=== PATIENT | female | born 1955 | race Caucasian/White ===

== ENCOUNTER 2023-10-10 14:33 | Inpatient (IN) | payer MEDICARE, SELFPAY ==
[2023-10-10] VITALS (23 sets, daily range): BP systolic 90–132; BP diastolic 59–101
[2023-10-10 11:57] LABS: Glucose - Point of Care 109 mg/dl (70-99)
--- NOTE | 2023-10-10 12:02 | CON.NEURO4 ---
Addendum entered and electronically signed by Kenneth Strickland MD 10/10/23 14:21:
I saw and evaluated the patient I reviewed the note by Lida Unger agree with the findings with the following comments:
68-year-old woman with a past medical history of leukemia, Vitas and subsequent complications with multiple small bowel obstructions, hypertension, rheumatoid arthritis presented to hospital with some dyspnea when laying flat over the past week and
then sudden onset expressive speech difficulty and balance issues starting around 9 AM this morning. EMS reported that she had significant improvement upon arrival in ED compared to when they evaluated her initially in the field when she had
significant expressive aphasia. Patient was given 481 mg aspirin tablets, she was noted to be in rapid onset new atrial fibrillation with heart rate 140 -150 with no hypotension. Patient denies headache does feel dizzy and nauseated, has no
previous history of stroke or TIA does not take any blood thinning medications at baseline, she gets IVIG approximately every 4 weeks for the history of her last dose was 2 weeks ago.
Neurologic examination shows NIH stroke scale of 0, patient has some slow speech but no evidence of aphasia or neglect patient has full and appropriate conversation repeats phrases and names objects consistently, cranial nerves show equal pupils,
full extraocular movements, no visual field deficits and no visual neglect, smile symmetric no dysarthria, no pronator drift or fix power 5/5 in shoulder abduction arm flexion hip flexion bilaterally no sensory neglect no ataxia on finger-nose
testing bilaterally.
CT head noncontrast noted I do not appreciate any signs of hypodensity or early ischemia, I do note that the sulci are more effaced on the right hemisphere but without hypodensity in the white matter or kennedy matter. No hemorrhage no hyperdense MCA
sign no hydrocephalus and no neoplasm or edema.
Assessment: TIA presumed due to new atrial fibrillation, patient does seem to be having some symptoms from atrial fibrillation with nausea as well as some dyspnea when laying down over the past couple of days
With patient appearing much improved with NIH stroke scale of 0 no appreciable deficits I do not feel that the patient would need to be delayed for starting anticoagulation, I have greater concern over her risk for another TIA or cardioembolic
stroke given atrial fibrillation.
Most clear etiology for TIA or minor stroke would be the atrial fibrillation, IVIG can also produce some degree of hypercoagulable state, in addition to see with a history of B-cell leukemia.
Recommendations
-Okay for starting anticoagulation with heparin infusion would not bolus
-NIH stroke scales neurologic checks discussed with patient and her daughter and what signs and symptoms of stroke to look for as well as any worsening headache
-Goal normotension would ensure systolic blood pressure is less than 180
-Control heart rate in atrial fibrillation
-Cardiology consultation
-Check TTE
-Check MRI of the brain and MRA of head without contrast and carotid ultrasound
Will follow
Original Note:
Documented by User: Lida Alfaro NP 10/10/23 13:20
Consultation - Neurology 4
-
CONSULTING PHYSICIAN: Neal Strickland MD
REFERRING PHYSICIAN: ER/DR. Barton
DICTATED BY: PREET Villalobos
DATE/TIME OF REQUEST: 10/10/23
DATE/TIME OF CONSULTATION: 10/10/23
Reason for Consultation: Stroke Alert
History of Present Illness:
This is a 68-year-old right-handed female who has presented to the hospital with report of balance issues and word finding difficulty. Patient reports feeling dyspneic especially when lying flat for the past week. This morning, she went for a walk
and did her usual morning routine. Around 0900 she reports suddenly feeling off balance and having difficulty ambulating. She tried to use her phone to call her son and reports having significant difficulty using her phone and when she was able to
call him she could barely get her words out to speak. He called 911. EMS arrived and report that she was in new onset rapid Afib 140-150's. They gave her 4 aspirin 81mg tablets. On their exam she had significant word finding difficulty and was
ataxic, prompting them to activate a Stroke Alert. On arrival to the ER, patient is markedly improved. Responses to questions and commands are slightly slow but NIHSS is a 0. CT Head was obtained and is suggestive of mild effacement off the right
MCA. Patient's exam does not correlate with this finding. She is not a candidate for TNK/IAT due to NIHSS 0. ER VS: 98.7 F, HR 164, BP 132/101, RR 18, 98% RA. ER Labs: Na 134. Patient endorses feeling light-headed and nauseous. She denies any
headache, vision changes, swallowing difficulty, numbness, weakness, vomiting, chest pain, palpitations, and shortness of breath. She denies any history of TIA, stroke, or events like this in the past. She is not taking any blood thinning
medications. She is receiving monthly IVIG injections for B Cell leukemia that was diagnosed 6-7 years ago.
Past Medical History: HTN, HLD, B Cell Leukemia, rheumatoid arthritis (methotrexate), diverticulitis, bowel obstruction, bowel adhesions
Surgical History: Bowel resection x6
Family History: Reviewed and noncontributory.
Social History: Denies tobacco, alcohol, and illicit drug use. , has three children.
Allergies: Iodinated contrast, hydromorphone.
Home Medications: See below.
Review of Symptoms:
Patient denies any fever, headache, chest pain, shortness of breath, GI or symptoms.
�Per the HPI.�All systems are reviewed negative except above.
Physical Exam:
The patient is afebrile, abdomen is nondistended, breathing is unlabored, skin is warm and dry, trace BLE edema.
NIH Stroke Scale:
I performed the NIH stroke scale on the patient on 10/10/23 at 1200. The patient scored 0 points on the NIH stroke scale assessment, which were assigned as follows: See below.
Neurologic Examination:
The patient is awake, alert and oriented x 3. She is able to follow commands and answer questions appropriately, slightly slow response times. There is no aphasia or dysarthria. On cranial nerve assessment, pupils are 3 mm bilateral, round and
reactive to light and accommodation. Visual nguyen are full. Extraocular movements are intact. Facial sensations are intact and bilaterally symmetrical, there is no facial asymmetry. Hearing is intact bilaterally to normal conversation volume.
Tongue palate and uvula are midline. Sternocleidomastoid strengths are full bilaterally. Motor strengths are 5/5 bilateral upper and lower extremities on medical research [place] scale. There is no drift or involuntary movement noted. Deep tendon
reflexes are 2+ bilateral upper and lower extremities and Babinski is absent bilaterally. Sensations of pain, touch, temperature and vibration are intact and bilaterally symmetrical. There was no extinction noted on double simultaneous stimulation.
Coordination is intact by finger to nose bilaterally.
Lab Results: See below.
Neuro Imaging:
1. CT Head 10/05/23: There is mild sulcal effacement in the right middle cerebral artery distribution without obscuration of the normal kennedy-white junction.
While this may be normal variant, given the patient's clinical history, this may reflect the earliest changes of edema from right middle cerebral artery infarct.
Differentials for the patient's presentation include:
1. New onset rapid Afib
2. TIA or small stroke possible
3. Neurological exam not supportive of a R MCA syndrome suggested by CT head imaging.
Patient has the following risk factors for their symptoms: New onset rapid Afib, HTN, HLD
IV Tenecteplase/IAT candidacy: Not a candidate due to NIHSS 0.
Recommendations:
-Okay to initiate anticoagulation now due to new onset Afib
-MRI brain noncontrast ordered/pending.
-Carotid ultrasound ordered/pending.
-NIHSS and neurological checks per unit guidelines.
-Provide patient with a stroke education packet.
-LDL goal <70. Lipid panel pending.
-Goal normoglycemia, hbA1c pending.
-PT/OT/ST evaluations
-DVT prophylaxis
-Will follow pending results.
Discussed patient care with: Dr. Strickland, the patient
Vital Signs and Labs
-
Vital Signs and Labs:
Vital Signs
Temp Pulse Resp BP Pulse Ox
98.7 F 104 20 119/73 94
10/10/23 11:57 10/10/23 13:00 10/10/23 13:00 10/10/23 13:00 10/10/23 13:00
Lab Results
10/10/23 12:03
10/10/23 12:03
PT 13.2 Sec (11.4-14.6) 10/10/23 12:03
INR 0.98 10/10/23 12:03
APTT Cancelled 10/10/23 12:42
Sodium 134 mmol/L (135-145) L 10/10/23 12:03
Potassium 4.6 mmol/L (3.5-5.1) 10/10/23 12:03
BUN 27 mg/dl (7-17) H 10/10/23 12:03
Glucose 105 mg/dl (70-99) H 10/10/23 12:03
Calcium 9.3 mg/dl (8.4-10.2) 10/10/23 12:03
LDL Cholesterol, Calc 55 mg/dl 10/10/23 12:03
Medications
-
Active Medications
Generic Name Dose Route Start Last Admin
Trade Name Freq PRN Reason Stop Dose Admin
Heparin Sodium 25,000 units in 250 mls @ 0 mls/hr 10/10/23 12:45 10/10/23 12:55
Heparin 48654 Units/250 Ml IV 250 mls
PER PROTOCOL CARLOS Administration
Protocol
Per Protocol
NIH Stroke Score
Subsequent NIH Scale
Date of Subsequent NIH Scale: 10/10/23
Time of Subsequent NIH Scale: 12:00
NIH Stroke Score
Level of Consciousness: 0 - Alert
LOC Questions: 0-Answers both correctly
LOC Commands: 0-Performs both correctly
Best Horizontal Gaze: 0-Normal
Visual Nguyen: 0=Normal, no visual loss
Facial Palsy: 0=Normal, symmetrical
Motor - Right Arm: 0=No drift 10 seconds
Motor - Left Arm: 0=No drift 10 seconds
Motor - Right Le-No drift 5 seconds
Motor - Left Le-No drift 5 seconds
Limb Ataxia: 0-Absent
Sensation: 0-Normal
Best Language: 0-No aphasia
Dysarthria: 0-Normal
Extinction and Inattention: 0-No abnormality
Total Score:: 0

Documented by User: Kenneth Strickland MD 10/10/23 13:30
NIH Stroke Score
NIH Stroke Score
Total Score:: 0
--- NOTE | 2023-10-10 12:06 | ED.CVA ---
History of Present Illness
General
Chief Complaint: CVA/TIA Symptoms
Source: patient and ambulance crew
Exam Limitations: none
Time Seen by Provider: 10/10/23 11:57
Onset of Stroke Symptoms
Onset of symptoms known: Yes
Date of onset of symptoms: 10/10/23
History of Present Illness
History of Present Illness:
See MDM
Past History
Past History
ED Past Medical History: Cancer, HTN and Hypercholesterolemia
ED Past Surgical History: Cholecystectomy
Social History
Tobacco: Non-smoker
Alcohol: None
Phy Exam
Physical Exam
Physical Exam:
See MDM
NIH Stroke Score
Level of Consciousness: 0 - Alert
LOC questions: 0-Answers both correctly
LOC Commands: 0-Performs both correctly
Best Gaze: 0-Normal
Visual Nguyen: 0=Normal, no visual loss
Facial palsy: 0=Normal, symmetrical
Motor - Right Arm: 0=No drift 10 seconds
Motor - Left Arm: 0=No drift 10 seconds
Motor - Right Le-No drift 5 seconds
Motor - Left Le-No drift 5 seconds
Limb Ataxia: 0-Absent
Sensation: 0-Normal
Best Language: 0-No aphasia
Dysarthria: 0-Normal
Extinction and Inattention: 0-No abnormality
Total Score:: 0
Course
Orders/Labs/Results
Orders:
Orders
10/10/23 11:57
CT Head W/o Cont STROKE ALERT Urgent
Comment:
Reason For Exam: aphasia and weakness
NEUROLOGY CONSULT Urgent
Consulting Provider: Kenneth Strickland
Was physician already notified: Yes
Diltiazem 125 mg/125 ml Nss [Cardizem] 125 mg in 125 ml IV NOW
Initial dose in mg/hr, then titrate:: 5
Titrate to keep:: Heart rate 80-100 bpm
Titrate by mg/hr:: 5 mg/hr
Frequency of titrations (minutes):: 15
Maximum dose in mg/hr:: 15
Diltiazem HCl [Cardizem] 20 mg IV NOW STA
10/10/23 11:58
Electrocardiogram (*1) Stat
Reason for Study: Other
Other Reason for Exam: neuro symptoms
EKG- Treatment ONCE
10/10/23 11:59
Diltiazem 125 mg/125 ml Nss [Cardizem] 125 mg in 125 ml .ROUTE .STK-MED
10/10/23 12:00
Diltiazem HCl [Cardizem] 25 mg .ROUTE .STK-MED ONE
10/10/23 12:03
Cardiovascular Evaluation Urgent
Comment: ADD ON
Complete Blood Count/With Diff Urgent
Comprehensive Metabolic Panel Urgent
Ferritin Urgent
Comment: ADD ON
Folate Urgent
Comment: ADD ON
Glycohemoglobin (HgbA1c) Urgent
Magnesium Urgent
Prothrombin Time Urgent
TSH Reflex To Free T4 Urgent
Comment: ADD ON
Troponin I Urgent
Vitamin B12 Urgent
Comment: ADD ON
10/10/23 12:13
Ondansetron Injectable [Zofran] 4 mg .ROUTE .STK-MED ONE
10/10/23 12:19
Ondansetron Injectable [Zofran] 4 mg IV NOW STA
10/10/23 12:36
Add On- LAB Routine
Tests Added?: folate, ferritin, TSH reflex, B12, lipid panel, hbA1c
10/10/23 12:42
PTT Urgent
Comment: Obtain baseline before beginning heparin infusion if not already collected
Pharmacy Request to Place See Dose Instructions PO NOW STA
Discontinue all Active Warfarin orders?: Yes
Nursing to Place Non Medication Order As Directed
Physician Order: PTT 6 hours after initial start of Heparin infusion
Above order entered?: Yes
10/10/23 12:45
Heparin 70831 Units/250 ml 25,000 units in 250 ml IV PER PROTOCOL
Weight to be used for heparin protocol in kilograms (kg):: 80
Protocol:: Cardiac Tx/Acute Coronary
PTT Goal Range to be used:: PTT 73 to 111 seconds
Order type:: Initial
INITIAL Infusion Dose (UNITS/KG/hr) & then follow protocol:: 15 units/kg/hr
Infusion Dose in UNITS/hr & then follow protocol (UNITS/hr):: 1,200
INFUSION RATE in mL/hr & then follow protocol (mL/hr):: 12
PTT less than or equal to 64 seconds:: Increase rate by 200 units/hr (+ 2 mL/hr)
PTT 64.1 to 72.9 seconds:: Increase rate by 100 units/hr (+ 1 mL/hr)
PTT 73 to 111 seconds:: Target Range. No change in rate.
PTT 111.1 to 130.9 seconds:: Decrease rate by 100 units/hr (- 1 mL/hr)
PTT 131 to 199.9 seconds:: HOLD for 1 hr. Then decrease rate by 200 units/hr (- 2 mL/hr)
PTT greater than or equal to 200 seconds:: HOLD for 2 hrs & Notify Provider. Then decrease by 200 units/hr (-
2 mL/hr)
Lab follow-up:: Each change, PTT q6h until 2 consecutive are therapeutic. Then PTT
daily.
10/10/23 13:[address] See Dose Instructions IV DIRECTED
Abnormal Lab Results
10/10/23 10/10/23
11:55 12:03
Absolute Lymphs (auto) 0.6 L 10^3/uL
(1.2-3.4)
Neutrophils % 83.6 H %
(42.2-75.2)
Lymphocytes % 10.6 L %
(20.5-51.1)
Sodium 134 L mmol/L
(135-145)
BUN 27 H mg/dl
(7-17)
Glucose 105 H mg/dl
(70-99)
AST 38 H U/L
(14-36)
POC Glucose 109 H mg/dl
(70-99)
10/10/23 12:03
10/10/23 12:03
Vital Signs
Initial and Last Documented VS:
Initial Vital Signs
Temp Pulse Resp BP Pulse Ox
98.7 F 164 18 132/101 98
10/10/23 11:57 10/10/23 11:57 10/10/23 11:57 10/10/23 11:57 10/10/23 11:57
Last Documented Vital Signs
Temp Pulse Resp BP Pulse Ox
98.7 F 106 20 127/85 94
10/10/23 11:57 10/10/23 12:30 10/10/23 12:30 10/10/23 12:30 10/10/23 12:30
MDM/Problems Addressed
Differential Diagnosis Includes:
HPI and MDM Narrative:
68-year-old female presenting as a prearrival stroke alert. Patient was met by myself, nursing staff and neurology. EMS gave 4 baby aspirin. Patient states she felt dizzy and off-balance starting at 9 AM. She states she had trouble walking and
developed weakness. On arrival, symptoms appear to have resolved. Although she is slow to respond, her NIH stroke scale is technically 0. Patient found to be in A-fib with AVR.
Patient sent to CT immediately.
Physical exam
General: Well appearing and non-toxic
HEENT: protecting airway. Pupils equal reactive. EOMI
Neck: supple
CV: No evidence of cyanosis. Tachycardic and irregular
Resp: No accessory muscle use
Abd: Non-distended
Extremities: No deformities
Neuro: alert. No muscle weakness, sensation intact
Psych: Normal affect
Skin: Intact
Problems Addressed including Acute and Chronic Conditions affecting care:
1. CVA
Acuity: acute
Prognosis: stable
Details: Symptoms self resolving. She is not a TNK candidate
2. New onset A-fib
Acuity: acute
Prognosis: unstable
Details: Patient placed on Cardizem drip. Patient started on heparin
Updates
Radiology called indicating concern for early stroke changes. This was discussed with neurology. Given the concern for recurrent stroke symptoms, patient started on heparin. Cardiology consulted as well.
Differential Diagnosis (but not limited to):
Testing considered:
Drug therapy (if applicable): OTC meds, please see d/c instruction regarding Rx drugs
Amount and/or Complexity of Data Reviewed
Clinical info obtained from: Patient
External data reviewed: N/A
Labs I independently reviewed (but not limited to): Troponin negative
Radiology: The CT scan was personally and independently reviewed. In addition, official CT report reviewed.
Pulse Ox: not hypoxic
EKG independently reviewed: A-fib, normal axis, no STEMI
Assistant Financial Accountant: A-fib with RVR
Critical Care: The high probability of a clinically significant, sudden or life threatening deterioration of the cardiovascular system(s) required my full and direct attention, intervention and personal management. The aggregate critical care time
was 33 minutes. This time is in addition to time spent performing reported procedures but includes the following:
[x] Data Review and interpretation
[x] Patient assessment and monitoring of vital signs
[x] Documentation
[x] Medication orders and management
Risk of Complication:
Social Determinants of health: Good social support
Discussed with other providers: Neurology, hospitalist, document preparer microfilming
Escalation of Care includes Admit/Obs: Given the stroke symptoms with new onset A-fib, will admit
Occasional wrong word or 'sound a like' substitutions may have occurred due to the inherent limitations of voice recognition software. Read the chart carefully and recognize, using context, where substitutions have occurred.
*Critical Care Note
Total Time (30-74mins, 75-104mins- exclusive of procedures): 33 min
ED Attending Note
-
Portions of this chart may have been created with voice recognition software.� Occasional wrong word or��sound alike� substitutions may have occurred due to the inherent limitations of voice recognition software.
Discharge Plan
Departure
Patient Disposition: Admit
Date of Disposition: 10/10/23
Time of Disposition: 12:55
Admit to: Telemetry
Presentation/result/management discussed w/ accepting MD/DO: Hospitalist
Discharge Problem:
Acute CVA (cerebrovascular accident), New onset a-fib
Referrals:
UNKNOWN,NO INTERVIEW [Family Provider] -
Interventions
Interventions:
*Risk Screen - Suicide Last Done: 10/10/23 11:57
*General Assessment Last Done: 10/10/23 11:57
*Neglect/Abuse Screening Last Done: 10/10/23 11:57
ED- Fall Risk Assessment Last Done: 10/10/23 11:57
*ED COVID-19 Vaccine History Last Done: 10/10/23 11:57
ED- Pulmonary Assessment Last Done: 10/10/23 11:57
ED- Neurological Assessment Last Done: 10/10/23 12:30
ED- Cardiac Assessment Last Done: 10/10/23 11:57
ED Swallowing Screen Last Done: 10/10/23 12:18
[2023-10-10 12:10] LABS: % Basophils 0.5 % (0-2); % Eosinophils 0.7 % (0-6); % Immature Granulocytes 0.4 % (0-0.5); % Lymphocytes 10.6 % (20.5-51.1); % Monocytes 4.2 % (1.7-9.3); % Neutrophils 83.6 % (42.2-75.2); Absolute Lymphocytes 0.6 10^3/uL (1.2-3.4); Absolute Monocytes 0.2 10^3/uL (0.1-0.6); Absolute Neutrophils 4.6 10^3/uL (1.4-6.5); Hematocrit 41.9 % (37.0-47.0); Hemoglobin 14.3 g/dL (12.0-16.0); Mean Corp Hgb Conc. 34.1 g/dL (33.0-37.0); Mean Corpuscular Volume 90.9 fL (81.0-99.0); Mean Platelet Volume 10.3 fL (7.4-10.4); Nucleated Red Blood Cells % 0 %; Platelet Count 182 10^3/uL (130-400); Red Blood Cell Count 4.61 10^6/uL (4.20-5.40); Red Cell Dist. Width 14.1 % (11.5-14.5); White Blood Cell Count 5.5 10^3/uL (4.8-10.8)
[2023-10-10] MEDS: CARDIZEM 125 IV (12:10)
[2023-10-10] MEDS: CARDIZEM 20 MG IV (12:10)
[2023-10-10] MEDS: ZOFRAN 4 MG IV ×2 (12:19→20:51)
[2023-10-10 12:20] LABS: INR 0.98; PT 13.2 Sec (11.4-14.6)
[2023-10-10 12:26] LABS: ALT (SGPT) 22 U/L (0-35); AST (SGOT) 38 U/L (14-36); Albumin 4.4 g/dl (3.5-5.0); Alkaline Phosphatase 87 U/L (38-126); Blood Urea Nitrogen 27 mg/dl (7-17); Calcium 9.3 mg/dl (8.4-10.2); Carbon Dioxide 26 mmol/L (22-30); Chloride 100 mmol/L (98-107); Glucose 105 mg/dl (70-99); Magnesium 1.9 mg/dl (1.6-2.3); Potassium 4.6 mmol/L (3.5-5.1); Sodium 134 mmol/L (135-145); Total Bilirubin 0.8 mg/dl (0.2-1.3); Total Protein 6.9 g/dl (6.3-8.2); eGFR > 60.00
[2023-10-10 12:36] LABS: Troponin I < 0.012 ng/ml
[2023-10-10 12:55] LABS: Glycohemoglobin (HgbA1c) 5.6 % (4.0-5.6)
[2023-10-10] MEDS: HEPARIN 25000 UNITS/250 ML IV (12:55)
[2023-10-10 13:01] LABS: HDL Cholesterol 54 mg/dl; LDL Cholesterol, Calculated 55 mg/dl; Total Cholesterol 146 mg/dl (50-199); Triglyceride 189 mg/dl (10-149); Very Low Density Lipoprotein 37 mg/dl (0-30)
[2023-10-10 13:08] LABS: APTT 26.8 Sec (23.4-35.0)
--- NOTE | 2023-10-10 13:40 | HPS.HSE ---
Addendum entered and electronically signed by Whitney Babcock MD 10/10/23 15:12:
pt seen and examined independently--agree with TUB ATTENDANT note
GENERAL: well developed, well nourished, female in no apparent distress
HEENT: NC/AT no O2
HEART: irreg irreg
LUNGS : clear to auscultation bilaterally
ABDOM: soft, nontender, nondistended, + bowel sounds
EXT: no cyanosis, clubbing, or edema
NEUROLOGIC: no deficits--symptoms resolved
new onset afib likely cause of acute stroke-- cont cardizem drip, IV heparin--await cards--check echo--TSH pending
Acute Right MCA infarct per CT with prior symptoms Slurred speech, right eye visual deficit--symptoms resolved--await neuro--PT/OT/speech--neuro checks--lipid profile (T Chol 146, LDL 55, VLDL 37, HDL 54, triglycerides 189)
Chronic abdominal pain secondary to adhesions on chronic opiates---Morphine 300 mg every 12 hours, 30 mg every 8 hours as needed breakthrough pain as baseline meds
Opiate induced constipation--Continue Movantik
Leukemia B-cell--Port to transfer IVIG infusions at [facility]
Rheumatoid arthritis--Methotrexate 20 mg on Saturdays
Essential HTN--Continue amlodipine 5 mg daily with hold parameters--Metoprolol succinate 25 mg twice daily will hold while on Cardizem
HLD--Lipid profile-T Chol 146, LDL 55, VLDL 37, HDL 54, triglycerides 189--Continue atorvastatin 20 mg daily
GERD--Continue Pepcid 40 mg every afternoon, omeprazole
Trigeminal neuralgia hx
DVT prophylaxis--Patient on current IV heparin drip
code status --Full code
Addendum entered and electronically signed by PREET Spears 10/10/23 14:46:
change to IMU
Original Note:
Family Physician
-
Family Physician: Maliha Hall
Chief Complaint
-
Aphasia, right eye visual impairment, headache, shortness of breath x 1 week at night
History of Present Illness
68-year-old female who was at home today went for a mile walk upon returning home she was in her kitchen when she had sudden onset of bright light to her right eye along with difficulty talking and trying to walk. She was able to call her son but
not able to speak he called 911. The patient also reports for the past week when she lies down to go to bed she has had shortness of breath. She currently complains of a frontal headache with some nausea. She has chronic left upper eyelid droop
since she was young. She denies any history of Rodriguez's palsy. She has a subtle right nystagmus she does wear glasses for farsightedness and nearsightedness. She denies recent illness, fever, chills, chest pain, palpitations, cough, abdominal pain,
vomiting, diarrhea, urinary symptoms. She reports she has never had COVID
PMH leukemia B-cell, RA on methotrexate, trigeminal neuralgia, chronic abdominal pain second to adhesions on chronic opiates, HTN, HLD, GERD
Medical History
Past Medical History
Past Medical History: Reports Other
Additional Past Medical History:
leukemia B-cell on IVIG
RA on methotrexate
trigeminal neuralgia
Chronic abdominal pain with chronic adhesions on chronic opiates
Opiate induced constipation
HTN
HLD
GERD
Past Surgical History: Reports Other
Additional Past Surgical History:
Abdominal surgery x 6
Back surgery x 2
Left knee surgery
Cholecystectomy
Hysterectomy
Social History
Tobacco: Non-smoker
Alcohol: None
Drug: None
Personal: Single
Living: Alone
Employment: Retired
Family History
Family History: Other (Mother, father OR age 60s, brother OR age 40s, mother age 94, father age 80 COPD, brother living)
Allergies / Home Medications
Allergies reflects when Allergies were last updated in [facility].
Home Medications with original date entered in [facility]
Allergy/Medication List:
Allergies
Allergy/AdvReac Type Severity Reaction Status Date / Time
hydromorphone [From Dilaudid] Allergy Unknown Verified 10/10/23 11:55
Iodinated Contrast Media Allergy Unknown Verified 10/10/23 11:55
Home Medications
amlodipine 5 mg tablet 5 mg PO DAILY 10/10/23
ascorbic acid (vitamin C) 1,000 mg tablet (Vitamin C) 1,000 mg PO HS 10/10/23
atorvastatin 20 mg tablet 20 mg PO DAILY 10/10/23
cyanocobalamin (vitamin B-12) 1 tab PO HS 10/10/23
docusate sodium 100 mg capsule (Stool Softener) 100 mg PO DAILY 10/10/23
famotidine 40 mg tablet 40 mg PO QPM 10/10/23
folic acid 1 mg tablet 1 mg PO SUMOTUWETHFR@0800 10/10/23
icosapent ethyl 1 gram capsule (Vascepa) 2 g PO BID 10/10/23
methotrexate sodium 2.5 mg tablet 20 mg PO SA@0800 10/10/23
metoprolol succinate 25 mg tablet,extended release 24 hr 25 mg PO BID 10/10/23
morphine 100 mg tablet,extended release 100 mg PO Q12H 10/10/23
morphine 200 mg tablet,extended release 200 mg PO Q12H 10/10/23
morphine 30 mg immediate release tablet 30 mg PO Q8H PRN breakthrough pain 10/10/23
naloxegol 25 mg tablet (Movantik) 25 mg PO DAILY 10/10/23
omeprazole 40 mg capsule,delayed release 40 mg PO DAILY 10/10/23
prochlorperazine 25 mg rectal suppository (Compro) 25 mg VA BID PRN nausea 10/10/23
vitamin A 1 tab PO HS 10/10/23
vitamin E 1 tab PO HS 10/10/23
Review of Systems
-
History Source: Patient
A 12 point ROS was completed and negative except as noted: Yes
Constitutional: Denies Fever, Fatigue or Chills
EENT: Reports Other (Chronic left upper eyelid droop present on admission, reported brief episode bright light right eye with aphasia); Denies Sore Throat or Runny Nose
Respiratory: Denies Cough or Trouble Breathing
Cardiac: Denies Chest Pain
Abdomen/GI: Reports Nausea; Denies Abdominal Pain, Vomiting, Diarrhea, Constipated, Bloody Stools or Black Stools
: Denies Dysuria, Frequency, Flank Pain, Incontinence, Difficulty Voiding or Urgency
Musculoskeletal: Denies Joint Pain or Edema
Skin: Denies Itching or Rash
Neurological: Reports Headache (Frontal sinus); Denies Dizzy, Weakness or Numbness
Endocrine: Reports No Symptoms
Hematologic/Lymphatic: Reports No Symptoms
Psych: Reports Calm
Physical Exam
Vital Signs
Vital Signs
Temp Pulse Resp BP Pulse Ox
98.7 F 117 15 121/76 94
10/10/23 11:57 10/10/23 13:30 10/10/23 13:30 10/10/23 13:30 10/10/23 13:00
Physical Exam
General: Comfortable and Conversant; No Fever or Chills
HEENT: NormoCephalic, Anicteric, Moist mucous membranes, PERRLA, [place] Conjunctivae, Neck Nontender and Other (Chronic left upper eyelid droop since child, subtle right eye nystagmus pupils 2 mm bilaterally); No Pharyngeal Efythema
Respiratory: Clear; No Wheezes, Rales or Rhonchi
Cardiac: S1/S2 and Irregular Rhythm (A-fib HR 112 bpm on monitor); No Murmur, Rub, Gallop or Peripheral Edema
Breast: Deferred by me
GI: Soft, Non Tender, Non Distended, Normal Bowel Sounds and No Hepatosplenomegaly
Rectal: Deferred by Provider
Genito-urinary: Deferred by me
Musculoskeletal: No Clubbing, No Cyanosis and No Edema
Skin: Warm and Dry; No Rash or Jaundice
Neuro: AO x 3, No Motor Deficits, Nonfocal/grossly intact, Cranial Nerves Intact and No Sensory Deficits; No Slurred Speech, Facial Droop or Tremors
Psych: Calm
Laboratory Results
-
10/10/23 12:03
10/10/23 12:03
Laboratory Results
PT 13.2 Sec (11.4-14.6) 10/10/23 12:03
INR 0.98 10/10/23 12:03
APTT Cancelled 10/10/23 12:42
Total Bilirubin 0.8 mg/dl (0.2-1.3) 10/10/23 12:03
AST 38 U/L (14-36) H 10/10/23 12:03
ALT 22 U/L (0-35) 10/10/23 12:03
Alkaline Phosphatase 87 U/L (38-126) 10/10/23 12:03
Troponin I < 0.012 ng/ml 10/10/23 12:03
Impression/Plan
-
Impression/plan:
Admit to IVU
#A-fib with RVR-new onset
-IV Cardizem drip
-IV heparin drip
-Consult cardiology
-2D echo
-TSH, troponin NML
EKG A-fib with RVR 112 bpm, QTc 444 MS otherwise normal
#Right MCA infarct per CT with prior symptoms Slurred speech, right eye visual deficit
-Consult neurology
-Speech swallow eval
-MRI brain
-Carotid ultrasound
-Neurochecks every 4 hours
-Check HgbA1c
-Tylenol as needed
-PT/OT
Lipid profile-T Chol 146, LDL 55, VLDL 37, HDL 54, triglycerides 189
CT head: Mild sulcal effacement in the right MCA without obscuration of the normal kennedy-white junction may reflect early changes of edema from right middle cerebral infarct
#Chronic abdominal pain secondary to adhesions on chronic opiates
-Morphine 300 mg every 12 hours, 30 mg every 8 hours as needed breakthrough pain
#Opiate induced constipation
-Continue Movantik
#Leukemia B-cell
Port to transfer IVIG infusions
#Rheumatoid arthritis
Methotrexate 20 mg on Saturdays
#HTN�benign
-Continue amlodipine 5 mg daily with hold parameters
Metoprolol succinate 25 mg twice daily will hold while on Cardizem
#HLD
Lipid profile-T Chol 146, LDL 55, VLDL 37, HDL 54, triglycerides 189
-Continue atorvastatin 20 mg daily
#GERD
Continue Pepcid 40 mg every afternoon, omeprazole
#Trigeminal neuralgia hx
DVT prophylaxis
Patient on current IV heparin drip
Full code
--- NOTE | 2023-10-10 14:33 | CON.CAR ---
Addendum entered and electronically signed by Alpesh Bermudez MD 10/10/23 17:01:
68 yo female with PMH HTN, B cell leukemia, rheumatoid arthritis presents to ED with visual changes. Being evaluation for TIA vs CVA. MRI results pending. Also found to have new A fib with RVR. She reports SOB, but no palps.
Exam with irregular rhythm, no murmurs, no edema. EKG: A fib with RVR.
# New A fib, type and duration unknown
-cont diltiazem drip
-she was on Toprol XL 25mg bid at home for HTN: increase to 50mg bid, and wean diltiazem drip
-CHADS2-VASC = 5. Now on heparin drip. Eventual transition to eliquis 5mg bid.
-echo
Original Note:
Consultation
Consultation Request
Date/Time Consultation Requested: 10/10/23 14:15
Date/Time Consultation Performed: 10/10/23 14:30
Requesting Provider: Dr. Barton
Performing Provider: PREET Rowley for Dr. Bermudez
Reason for Consultation: CVA
Medical History
-
Chief Complaint: Right visual changes
History of Present Illness:
Mariely Murguia is a 68-year-old female (known to Dr. Leroy Fernandez at [facility]) with B cell leukemia (on IVIG Q4 weeks), RA (on MTX), trigeminal neuralgia, chronic abdominal pain requiring opiates, HTN, HLD, and GERD presented to the emergency
department with a chief complaint of visual impairment. She went on a 1 mile walk and felt well. She returned home to make breakfast. While standing in the kitchen she had sudden onset of right visual impairment, dizziness, and aphasia. She
called her son and was unable to speak. He called 911 and presented to her apartment. She was found to have TIA versus CVA. Her NIH is currently 0. She was found to be in atrial fibrillation with right ventricular response. She reports she also
has shortness of breath every night. She has been sleeping in the upright position for several years due to severe GERD. She denies PND and orthopnea. She has no weight gain.
Past Medical History
Past Medical History: Cancer (B cell leukemia) and Other (trigeminal neuralgia, chronic abdominal pain [on opiates], RA [on MTX])
Past Surgical History: Bowel Resection, Cholecystectomy, Gynecological and Orthopedic
Social History
Tobacco: Non-Smoker
Alcohol: None
Drug: None
Living: Alone
Family History
Family History: Reviewed & Not Pertinent
Allergies / Home Medications
Allergy/AdvReac Type Severity Reaction Status Date / Time
hydromorphone [From Dilaudid] Allergy Unknown Verified 10/10/23 11:55
Iodinated Contrast Media Allergy Unknown Verified 10/10/23 11:55
Medication Instructions Recorded Confirmed Type
amlodipine 5 mg tablet 5 mg PO DAILY 10/10/23 10/10/23 History
ascorbic acid (vitamin C) 1,000 mg 1,000 mg PO HS 10/10/23 10/10/23 History
tablet (Vitamin C)
atorvastatin 20 mg tablet 20 mg PO DAILY 10/10/23 10/10/23 History
cyanocobalamin (vitamin B-12) 1 tab PO HS 10/10/23 10/10/23 History
docusate sodium 100 mg capsule 100 mg PO DAILY 10/10/23 10/10/23 History
(Stool Softener)
famotidine 40 mg tablet 40 mg PO QPM 10/10/23 10/10/23 History
folic acid 1 mg tablet 1 mg PO SUMOTUWETHFR@0800 10/10/23 10/10/23 History
icosapent ethyl 1 gram capsule 2 g PO BID 10/10/23 10/10/23 History
(Vascepa)
methotrexate sodium 2.5 mg tablet 20 mg PO SA@0800 10/10/23 10/10/23 History
metoprolol succinate 25 mg 25 mg PO BID 10/10/23 10/10/23 History
tablet,extended release 24 hr
morphine 100 mg tablet,extended 100 mg PO Q12H 10/10/23 10/10/23 History
release
morphine 200 mg tablet,extended 200 mg PO Q12H 10/10/23 10/10/23 History
release
morphine 30 mg immediate release 30 mg PO Q8H PRN breakthrough pain 10/10/23 10/10/23 History
tablet
naloxegol 25 mg tablet (Movantik) 25 mg PO DAILY 10/10/23 10/10/23 History
omeprazole 40 mg capsule,delayed 40 mg PO DAILY 10/10/23 10/10/23 History
release
prochlorperazine 25 mg rectal 25 mg [place] BID PRN nausea 10/10/23 10/10/23 History
suppository (Compro)
vitamin A 1 tab PO HS 10/10/23 10/10/23 History
vitamin E 1 tab PO HS 10/10/23 10/10/23 History
Review of Systems
-
History Source: Patient
All other systems: Negative unless noted
Constitutional: Fatigue
Respiratory: No Symptoms
Cardiac: No Symptoms
Abdomen/GI: No Symptoms
Physical Exam
Vital Signs
Temp Pulse Resp BP Pulse Ox
98.7 F 104 17 98/73 94
10/10/23 11:57 10/10/23 14:15 10/10/23 14:15 10/10/23 14:15 10/10/23 13:00
Lab Results
10/10/23 12:03
10/10/23 12:03
Troponin I < 0.012 ng/ml 10/10/23 12:03
Physical Exam
General: Well Developed, Well Nourished, No Apparent Distress and Comfortable
HEENT: Normocephalic, Anicteric and Moist Mucous Membranes
Respiratory: Clear and Non Labored Respirations
Cardiac: S1/S2 and Irregular Rhythm; Negative Peripheral Edema
Breast: Deferred by me
GI: Soft, Non Tender, Non Distended and Normal Bowel Sounds
Rectal: Deferred by Provider
Genito-urinary: No Costovertebral Tender
Musculoskeletal: No Clubbing, No Cyanosis and No Edema
Skin: Warm and Dry
Neuro: AO x 3
Hematologic/Lymphatic: No Lymphadenopathy
Psych: Calm
Impression / Plan
-
CVA, right MCA
-New atrial fibrillation this admission, plan as below
-Neurology following
-LDL at goal
-Carotid US & Hgba1c pending
Atrial fibrillation with RVR, new
-Rate elevated, started on diltiazem gtt
-Increase metoprolol and anticipate discontinuation of diltiazem
-Oral Anticoagulation: Heparin, esparza Apixaban 5mg BID
-[id number]: Score 5 (HTN, prior Stroke/TIA, age 65-74, female gender)
-TSH pending
-Echocardiogram in am
HTN
-BP goals per Neuro
Hypertriglyceridemia, on Vascepa
B cell lymphoma, on IVIG Q4 weeks (managed at [facility])
RA, on MTX
Data Reviewed
-
EKG: Report Reviewed by me (Atrial fibrillation with RVR, rate 112)
CT Scan: Report Reviewed by me (Head: There is mild sulcal effacement in the right middle cerebral artery distribution without obscuration of the normal kennedy-white junction. While this may be normal variant, given the patient's clinical history,
this may reflect the earliest changes of edema from right MCA infarct.)
Labs: Labs Reviewed by me
[2023-10-10 16:35] LABS: Folate > 20.0 ng/ml (2.76-20); Vitamin B12 939 pg/ml (239-931)
[2023-10-10] MEDS: TYLENOL 650 MG PO ×2 (17:37→20:52)
[2023-10-10] MEDS: PEPCID 40 MG PO (17:37)
--- NOTE | 2023-10-10 20:30 | PTCARENOTE ---
Received pt from [facility]. Pt is AAOx3, NIH Qshift, neuro checks Q4, R LE weakness. Afib on the monitor, Cardizem gtt infusing @ 12.5 mg/hr (titrate per protocol, see worklist). Pt c/o lightheadedness while standing. On RA O2 sat 96%, lungs
clear. BRPx1. Pt c/o nausea, SENIOR SECURITY ANALYST Sonia notified 1 time dose of Zofran ordered (see MAR). Heparin infusing @ 1200 units/hr. Pt is laying comfortable in bed with call robert in reach.
[2023-10-10] MEDS: MS CONTIN (EXTENDED RELEASE) 300 MG PO (20:51)
[2023-10-10] MEDS: TOPROL XL 50 MG PO (20:52)
[2023-10-11] VITALS (28 sets, daily range): BP systolic 71–105; BP diastolic 47–82; PULSE 79–104; O2SAT 95–97; BMI 27.3
[2023-10-11 00:08] LABS: APTT 184.8 Sec (23.4-35.0)
[2023-10-11] MEDS: TYLENOL PO (01:14)
[2023-10-11] MEDS: CARDIZEM 125 IV (03:13)
[2023-10-11] MEDS: TYLENOL 650 MG PO ×6 (03:13→23:14)
[2023-10-11 06:45] LABS: % Basophils 0.7 % (0-2); % Eosinophils 6.9 % (0-6); % Immature Granulocytes 0.2 % (0-0.5); % Monocytes 5.3 % (1.7-9.3); % Neutrophils 64.9 % (42.2-75.2); Absolute Eosinophils 0.3 10^3/uL (0-0.7); Absolute Monocytes 0.2 10^3/uL (0.1-0.6); Absolute Neutrophils 2.9 10^3/uL (1.4-6.5); Hematocrit 34.5 % (37.0-47.0); Hemoglobin 11.8 g/dL (12.0-16.0); Mean Corp Hgb Conc. 34.2 g/dL (33.0-37.0); Mean Corpuscular Hgb 30.7 pg (27.0-31.0); Mean Corpuscular Volume 89.8 fL (81.0-99.0); Mean Platelet Volume 10.2 fL (7.4-10.4); Nucleated Red Blood Cells % 0 %; Platelet Count 169 10^3/uL (130-400); Red Blood Cell Count 3.84 10^6/uL (4.20-5.40); Red Cell Dist. Width 14.1 % (11.5-14.5); White Blood Cell Count 4.5 10^3/uL (4.8-10.8)
[2023-10-11 06:53] LABS: APTT 98.3 Sec (23.4-35.0)
[2023-10-11 07:12] LABS: ALT (SGPT) 19 U/L (0-35); AST (SGOT) 30 U/L (14-36); Albumin 3.2 g/dl (3.5-5.0); Alkaline Phosphatase 65 U/L (38-126); Blood Urea Nitrogen 20 mg/dl (7-17); Calcium 8.5 mg/dl (8.4-10.2); Carbon Dioxide 24 mmol/L (22-30); Chloride 101 mmol/L (98-107); Estimated Creatinine Clearance 71 ml/min; Glucose 102 mg/dl (70-99); Potassium 3.9 mmol/L (3.5-5.1); Sodium 135 mmol/L (135-145); Total Bilirubin 0.8 mg/dl (0.2-1.3); Total Protein 5.5 g/dl (6.3-8.2); eGFR > 60.00
--- NOTE | 2023-10-11 07:53 | W.PN.CD ---
Today's Communication / Plan
-
- transition diltiazem to po.
- Stop amlodipine.
- transition UFH to apixaban when OK with neurology
- Echocardiogram today
- NPO post MN for possible EFREN/CV
Impression / Plan
-
68 yo female with PMH HTN, B cell leukemia, rheumatoid arthritis presents to ED with visual changes. Being evaluation for TIA vs CVA. Also found to have new A fib with RVR.�
CVA, right MCA
-New atrial fibrillation this admission, plan as below
-Neurology following
-LDL at goal
-Carotid US & Hgba1c pending
Atrial fibrillation with RVR, new
-transition diltiazem to po. Stop amlodipine. Continue metoprolol
-Oral Anticoagulation: Heparin, esparza Apixaban 5mg BID. Start apixaban when OK with neurology
-[id number]: Score 5 (HTN, prior Stroke/TIA, age 65-74, female gender)
-TSH pending
-Echocardiogram pending
-NPO post MN for possible EFREN/CV
HTN - BP goals per Neuro
Hypertriglyceridemia, on Vascepa
B cell lymphoma, on IVIG Q4 weeks (managed at [facility])
RA, on MTX
Physical Exam
Vital Signs/Labs
Vital Signs
Temp Pulse Resp BP Pulse Ox
36.6 C 74 19 96/57 98
10/11/23 07:22 10/11/23 06:00 10/11/23 06:00 10/11/23 06:00 10/11/23 06:00
10/10/23 10/11/23 10/12/23
06:59 06:59 06:59
Actual Weight 169 lb 1.513 oz
10/11/23 06:19
10/11/23 06:19
PT 13.2 Sec (11.4-14.6) 10/10/23 12:03
INR 0.98 10/10/23 12:03
APTT 98.3 Sec (23.4-35.0) H 10/11/23 06:19
Magnesium 1.9 mg/dl (1.6-2.3) 10/10/23 12:03
Triglycerides 189 mg/dl (10-149) H 10/10/23 12:03
LDL Cholesterol, Calc 55 mg/dl 10/10/23 12:03
VLDL Cholesterol, Calc 37 mg/dl (0-30) H 10/10/23 12:03
HDL Cholesterol 54 mg/dl 10/10/23 12:03
LAB Results
10/10/23
12:03
Troponin I < 0.012
Physical Exam
Constitutional: No acute distress
EENT: Anicteric and Moist mucous membranes
Cardiovascular: Pedal edema is absent, Systolic murmur absent, Diastolic murmur absent and Rhythm/rate is irregular
Respiratory: Respiratory effort normal
GI: Distention absent and Normal bowel sounds
Neuro/Psych: Alert and Oriented
Data Reviewed
-
Date of Service: October 11, 2023
X-Ray/CT/US/MRI/NUC/PET: Other (tele AF/CVR)
[2023-10-11] MEDS: COLACE 100 MG PO (08:34)
[2023-10-11] MEDS: MS CONTIN (EXTENDED RELEASE) 300 MG PO ×2 (08:34→20:24)
[2023-10-11] MEDS: PROTONIX 40 MG PO (08:34)
[2023-10-11] MEDS: FOLVITE 1 MG PO (08:34)
[2023-10-11] MEDS: LIPITOR 20 MG PO (08:35)
[2023-10-11] MEDS: CARDIZEM CD 120 MG PO (08:37)
[2023-10-11] MEDS: TOPROL XL 50 MG PO ×2 (08:37→20:24)
--- NOTE | 2023-10-11 08:43 | W.PN.NEURO.1 ---
Today's Communication / Plan
-
Okay for starting anticoagulation
Goal normotension
Continue to follow orthostatics
Neuro Assessment/Plan
Assessment
68-year-old woman with a past medical history of leukemia, Vitas and subsequent complications with multiple small bowel obstructions, hypertension, rheumatoid arthritis presented to hospital with some dyspnea when laying flat over the past week and
then sudden onset expressive speech difficulty and balance issues starting around 9 AM this morning. EMS reported that she had significant improvement upon arrival in ED compared to when they evaluated her initially in the field when she had
significant expressive aphasia. Patient was given 481 mg aspirin tablets, she was noted to be in rapid onset new atrial fibrillation with heart rate 140 -150 with no hypotension. Patient denies headache does feel dizzy and nauseated, has no
previous history of stroke or TIA does not take any blood thinning medications at baseline, she gets IVIG approximately every 4 weeks for the history of her last dose was [address] head noncontrast noted no any signs of hypodensity or early ischemia
MRI of brain unremarkable
Assessment: TIA presumed due to new atrial fibrillation, patient does seem to be having some symptoms from atrial fibrillation with nausea as well as some dyspnea when laying down over the past couple of days
Plan
Recommendations
Okay for starting anticoagulation
Goal normotension
Continue to follow orthostatics
Will follow as needed.
Subjective/Objective
Subjective Data
Date of Service: October 11, 2023
Improved speech ability.
Objective Data
Vital Signs
Temp Pulse Resp BP Pulse Ox
36.6 C 74 19 96/57 98
10/11/23 07:22 10/11/23 06:00 10/11/23 06:00 10/11/23 06:00 10/11/23 06:00
Lab Results
10/11/23 06:19
10/11/23 06:19
PT 13.2 Sec (11.4-14.6) 10/10/23 12:03
INR 0.98 10/10/23 12:03
APTT 98.3 Sec (23.4-35.0) H 10/11/23 06:19
Sodium 135 mmol/L (135-145) 10/11/23 06:19
Potassium 3.9 mmol/L (3.5-5.1) 10/11/23 06:19
BUN 20 mg/dl (7-17) H 10/11/23 06:19
Glucose 102 mg/dl (70-99) H 10/11/23 06:19
Calcium 8.5 mg/dl (8.4-10.2) 10/11/23 06:19
LDL Cholesterol, Calc 55 mg/dl 10/10/23 12:03
Vitamin B12 939 pg/ml (239-931) H 10/10/23 12:03
Patient Allergies
hydromorphone [From Dilaudid] Allergy (Verified 10/10/23 11:55)
Unknown
Iodinated Contrast Media Allergy (Verified 10/10/23 11:55)
Unknown
Review of Systems
-
History Source: Patient
All other systems: Reviewed and negative
EENT: Negative Hearing Loss or Swallowing Difficulty
Respiratory: Trouble Breathing
Cardiac: Negative Chest Pain
Abdomen/GI: Negative Incontinence of Stool
Genitourinary: Negative Incontinence
Musculoskeletal: Negative Back Pain or Neck Pain
Neuro: Dizzy and Headache
Physical Exam
-
General: No Apparent Distress and Appears Stated Age
Eyes: Round OU, [place] Conjunctivae and No Ptosis
HEENT: Anicteric and Moist Mucous Membranes
Neck: Full Range of Motion
Respiratory: No Dyspnea
Cardiac: No JVD
GI: Non-distended
Skin: Unremarkable
Extremities: No Clubbing, No Cyanosis and No Edema
Psych: Intact Judgement/Insight
Extended Neurological Exam
Mood & Affect: Mood Unremarkable and Affect Unremarkable
Attention Span & Concentration: Awake, Alert, Interactive and No Difficulty with 2 Step Request
Memory: Unremarkable
Tremor: Hand Tremor Absent and Head Tremor Absent
Involuntary Movement: None
Speech: Quality Unremarkable, Quantity Unremarkable and Other (repetition intact)
Cranial Nerve II: Left Eye: Pupillary Size Unremarkable and Visual Nguyen Grossly Intact
Cranial Nerve II: Right Eye: Pupillary Size Unremarkable and Visual Nguyen Grossly Intact
Cranial Nerves III, IV, : Extraocular Movement: Grossly Intact
Cranial Nerve VII: Facial Symmetry: Normal Facial Symmetry
Cranial Nerve VIII: Hearing: Unremarkable Hearing to Normal Conversational Volume
Muscle Bulk & Tone: Bulk Unremarkable and Tone Unremarkable
Pronator Drift: No Drift in Upper Extremities
Touch Sensation: Unremarkable
Coordination: Nvqudr-lhni-osmebt Testing Unremarkable
Modified Shiv Score (MRS)
-
MRS Score:
Data Reviewed
-
MRI Head: Report Reviewed
MRA Head: Report Reviewed
Carotid Ultrasound: Report Reviewed
Orthostatic Testing: Report Reviewed
Labs: Report Reviewed
Reviewed with: Physician, Nurse, Nurse Practioner and Patient
Old Records: Summarized
Past History
Past History
ED Past Medical History: Arrthythmia (Afib), Cancer, HTN, Hypercholesterolemia and Other (Migraine)
ED Past Surgical History: Cholecystectomy
Social History
Tobacco: Non-smoker
Alcohol: None
Family History
Family History: Other (reviewed and noncontributory)
Medications
-
Medications:
Generic Name Dose Route Start Last Admin
Trade Name Freq PRN Reason Stop Dose Admin
Acetaminophen 650 mg 10/10/23 17:28 10/11/23 08:34
Acetaminophen 325 Mg Tablet PO 11/07/23 17:27 650 mg
Q4HWA CARLOS Administration
Atorvastatin Calcium 20 mg 10/11/23 08:00 10/11/23 08:35
Atorvastatin (Lipitor) 20 Mg Tablet PO 11/08/23 07:59 20 mg
DAILY CARLOS Administration
Diltiazem HCl 120 mg 10/11/23 08:00 10/11/23 08:37
Diltiazem 120 Mg Extended Release (24 H) Capsule PO 11/08/23 07:59 120 mg
DAILY CARLOS Administration
Docusate Sodium 100 mg 10/11/23 08:00 10/11/23 08:34
Docusate Sodium 100 Mg Capsule PO 11/08/23 07:59 100 mg
DAILY CARLOS Administration
Famotidine 40 mg 10/10/23 18:00 10/10/23 17:37
Famotidine 40 Mg Tablet PO 11/07/23 17:59 40 mg
QPM CARLOS Administration
Folic Acid 1 mg 10/11/23 08:00 10/11/23 08:34
Folic Acid 1 Mg Tablet PO 11/08/23 07:59 1 mg
SUMOTUWETHFR@0800 CARLOS Administration
Heparin Sodium 25,000 units in 250 mls @ 0 mls/hr 10/10/23 12:45 10/10/23 12:55
Heparin 43765 Units/250 Ml IV 250 mls
PER PROTOCOL CARLOS Administration
Protocol
Per Protocol
Metoprolol Succinate 50 mg 10/10/23 20:00 10/11/23 08:37
Metoprolol 50 Mg Extended Release Tablet PO 11/07/23 19:59 50 mg
BID CARLOS Administration
Morphine Sulfate 30 mg 10/10/23 16:46
Morphine 15 Mg Immediate Release Tablet PO 10/24/23 16:45
Q8HPRN PRN
breakthrough pain
Morphine Sulfate 300 mg 10/10/23 20:00 10/11/23 08:34
Morphine 100 Mg Extended Release Tablet PO 10/24/23 19:59 300 mg
Q12 CARLOS Administration
Naloxegol [Movantik] 0 mg 10/11/23 08:00
25 Mg Po Daily PO 11/08/23 07:59
DAILY CARLOS
Pantoprazole Sodium 40 mg 10/11/23 08:00 10/11/23 08:34
Pantoprazole 40 Mg Delayed Release Tablet PO 11/08/23 07:59 40 mg
DAILY CARLOS Administration
Sodium Chloride 0 flush 10/10/23 17:00
Sodium Chloride 0.9% (Flush) Syringe IV 11/07/23 16:59
PER PROTOCOL CARLOS
[2023-10-11] MEDS: ELIQUIS 5 MG PO ×2 (09:15→20:25)
[2023-10-11] MEDS: MAXALT MLT (ORALLY DISINTEGRATING) 10 MG PO (09:15)
[2023-10-11 10:16] LABS: Hepatitis C Antibody Negative (Negative)
--- NOTE | 2023-10-11 10:37 | W.PN.HOSP.TC ---
Today's Communication/Plan
-
transition to oral meds
NPO after MN in case of EFREN/CV
transfer to tele
Assessment / Plan
Assessment / Plan
pt is a 68 year old female
new onset afib-- cardizem drip transitioned to oral, IV heparin transitioned to Eliquis--apprec cards--echo pending--TSH WNL
Acute Right MCA infarct ruled out as MRI negative--prior symptoms Slurred speech, right eye visual deficit--symptoms resolved, unclear cause of symptoms--apprec neuro--PT/OT/speech--neuro checks--lipid profile (T Chol 146, LDL 55, VLDL 37, HDL 54,
triglycerides 189)--cont statin therapy
symptomatic orthostasis--pt dizzy and BP does drop--will give 1 L NSS IVF bolus and re-eval
Chronic abdominal pain secondary to adhesions on chronic opiates---Morphine 300 mg every 12 hours, 30 mg every 8 hours as needed breakthrough pain as baseline meds
Opiate induced constipation--Continue Movantik
Leukemia B-cell--Port to transfer IVIG infusions at [facility]
Rheumatoid arthritis--Methotrexate 20 mg on Saturdays
Essential HTN--Continue amlodipine 5 mg daily with hold parameters--Metoprolol succinate 25 mg twice daily will hold while on Cardizem
HLD--Lipid profile-T Chol 146, LDL 55, VLDL 37, HDL 54, triglycerides 189--Continue atorvastatin 20 mg daily
GERD--Continue Pepcid 40 mg every afternoon, omeprazole
Trigeminal neuralgia hx
code status --Full code
Anticipated Discharge: > 48 hours
Subjective/Interval History
-
Date of Service: October 11, 2023
pt dizzy when she stands up
Objective Data
-
Labs:
Laboratory Results
10/10/23 10/11/23 10/11/23
23:40 06:19 12:20
WBC 4.5 L
Hgb 11.8 L
Hct 34.5 L
Plt Count 169
APTT 184.8 H* 98.3 H Pending
Sodium 135
Potassium 3.9
Chloride 101
Carbon Dioxide 24
BUN 20 H
Creatinine 0.7
Glucose 102 H
Calcium 8.5
Total Bilirubin 0.8
AST 30
ALT 19
Alkaline Phosphatase 65
Vital Signs:
max temp for 24 hours
10/10/23
11:57
Temp 98.7 F
Vital Signs
Temp Pulse Resp BP Pulse Ox
97.9 F 74 19 96/57 98
10/11/23 07:22 10/11/23 06:00 10/11/23 06:00 10/11/23 06:00 10/11/23 06:00
I&O
10/10/23 10/11/23 10/12/23
06:59 06:59 06:59
Intake Total 400 / 400
Balance 400 / 400
Review of Systems
-
All other systems: Reviewed and negative
Neuro: Reports Dizzy
Physical Exam
-
General: Well Developed, Well Nourished and No Apparent Distress
HEENT: Normocephalic and Atraumatic
Respiratory: Clear to Auscultation; Negative Wheezes or Rhonchi
Cardiac: Regular Rhythm and S1/S2; Negative Murmur
GI: Soft, Nontender, Nondistended and Normal Bowel Sounds
Musculoskeletal: No Clubbing, No Cyanosis and No Edema
Neuro: Awake, Alert and Nonfocal/Grossly Intact
[2023-10-11] MEDS: NSS 1000 IV ×2 (11:01→23:13)
[2023-10-11] MEDS: ZOFRAN 4 MG IV (11:02)
--- NOTE | 2023-10-11 11:31 | CM ---
Patient seen at bedside with physician today and in ED 10/10/23 at admission. Patient lives independently and came to the ed following difficulty with activities of daily living. Patient PCP is Dr. Hall and she uses the [facility] in [place]. Patient
family close by and supportive. Patient plan is for discharge home with family supports. CM will continue to follow for discharge planning needs.
Plan; home with no needs vs home with VN
--- NOTE | 2023-10-11 11:44 | PTCARENOTE ---
Assumed care of patient at beginning of this shift from previous RN. Patient c/o dizziness when standing overnight and this morning, as well as c/o feeling unsteady when she walked Orthostatic VS done: BP sitting 104/77 HR 101; standing BP 88/58, HR
104. She also c/o nausea. Dr Hodge in to see patient and made aware. Dr Babcock also notified;zofrtri ordered prn and IVF bolus ordered and infusing. Patient remains afib on the monitor; BP currently 94/66. See worklist for full assessment and
vital signs; see MAR for med administration.
--- NOTE | 2023-10-11 14:04 | PTCARENOTE ---
Addendum entered by Alivia Tolentino RN 10/11/23 14:51:
Patient had another episode of SOB during echo. cert pharmacy tech stated that patient suddenly jolted up to catch her breath, then that feeling passed. POx now noted to occasionally dip to 88%, then back up to 92-93% on RA. Patient did not c/o SOB during
the very brief episode of 88%, which lasted only a few seconds. Dr Babcock updated.
Original Note:
Patient notified this nurse that she has had several episodes today of sudden onset SOB; she states she had to 'breathe out' to catch her breath. Described it as going away as quickly as it comes on. Unable to assess POx at that specific time d/t
patient not informing nurse at time of SOB. POx 93% on RA. Lungs slightly coarse but no crackles noted; she did have fine exp wheezing this morning which is not there at present time. Occasional loose productive cough with white sputum. Patient then
rang again that she experienced the same SOB but had disconnected the POx herself in preparation to get up OOB. Reiterated importance of not taking off POx or any part of monitor and to call if needing assistance, not getting up by herself; bed
alarm initiated for patient safety. Dr Babcock made aware.
[2023-10-11] MEDS: PEPCID 40 MG PO (17:48)
--- NOTE | 2023-10-11 18:11 | PTCARENOTE ---
Patient states she has felt better since wearing oxygen; O2 currentlyl at 2L/min with POx 95%.
[2023-10-12] VITALS (30 sets, daily range): BP systolic 77–113; BP diastolic 52–89
--- NOTE | 2023-10-12 00:12 | PTCARENOTE ---
Pt drowsy, but arousable to voice. Assessment, NIH, and neuro checks as documented. BPs low, systolic 70s-90s. Afib on clinical research monitor with rate 60s-70s, and experiencing occasional pauses up to 3s. Pt does c/o dizziness/lightheadedness at times. Pt
status communicated to PREET Scott. NSS bolus hung per order.
[2023-10-12] MEDS: ZOFRAN 4 MG IV ×3 (03:43→20:08)
[2023-10-12] MEDS: TYLENOL 650 MG PO ×5 (03:43→20:19)
--- NOTE | 2023-10-12 04:09 | PTCARENOTE ---
BPs improved to >90 systolic following 1L bolus. Pt rang call robert to use BSC. Pt continues with c/o dizziness/lightheadedness. This RN encouraged pt to sit at side of bed until symptoms subside before transferring to BSC. Pt c/o extreme nausea,
denies vomiting. PRN zofran given per NOV. While drawing morning labs, pt sat forward clutching her head. When assessed, pt c/o SOB. This RN increased HOB and coached breathing. SaO2 remained 96-99% on 2L throughout episode. Pt seemed to relax once
HOB increased. Call robert placed within reach.
[2023-10-12 04:30] LABS: % Basophils 0.7 % (0-2); % Immature Granulocytes 0.2 % (0-0.5); % Lymphocytes 20.9 % (20.5-51.1); % Monocytes 4.7 % (1.7-9.3); % Neutrophils 65.5 % (42.2-75.2); Absolute Eosinophils 0.3 10^3/uL (0-0.7); Absolute Lymphocytes 0.9 10^3/uL (1.2-3.4); Absolute Monocytes 0.2 10^3/uL (0.1-0.6); Absolute Neutrophils 2.8 10^3/uL (1.4-6.5); Hematocrit 33.4 % (37.0-47.0); Hemoglobin 11.3 g/dL (12.0-16.0); Mean Corp Hgb Conc. 33.8 g/dL (33.0-37.0); Mean Corpuscular Hgb 31.7 pg (27.0-31.0); Mean Corpuscular Volume 93.6 fL (81.0-99.0); Nucleated Red Blood Cells % 0 %; Platelet Count 157 10^3/uL (130-400); Red Blood Cell Count 3.57 10^6/uL (4.20-5.40); White Blood Cell Count 4.3 10^3/uL (4.8-10.8)
[2023-10-12 04:49] LABS: ALT (SGPT) 17 U/L (0-35); AST (SGOT) 30 U/L (14-36); Albumin 3.1 g/dl (3.5-5.0); Alkaline Phosphatase 55 U/L (38-126); Blood Urea Nitrogen 17 mg/dl (7-17); Calcium 8.4 mg/dl (8.4-10.2); Carbon Dioxide 24 mmol/L (22-30); Chloride 105 mmol/L (98-107); Estimated Creatinine Clearance 71 ml/min; Glucose 113 mg/dl (70-99); Potassium 4.1 mmol/L (3.5-5.1); Sodium 135 mmol/L (135-145); Total Bilirubin 0.6 mg/dl (0.2-1.3); Total Protein 5.5 g/dl (6.3-8.2); eGFR > 60.00
--- NOTE | 2023-10-12 07:31 | W.PN.CD ---
Today's Communication / Plan
-
- AF rate is OK and BP soft -> stop diltiazem and use metoprolol only
- EFREN/CV -> she asked to defer since she is very uncomfortable with nausea and fatigue.
- Nausea & fatigue are not explained by rate controlled AF and chronic severe MR
Impression / Plan
-
Impression: 68F with PMH HTN, B cell leukemia, rheumatoid arthritis presents to ED with visual changes concerning for TIA vs CVA. Also found to have new A fib with RVR.�
Plan:
Visual changes
-New atrial fibrillation this admission, plan as below
-Neurology following
-LDL at goal
-Carotids, MRA, MRI benign
Atrial fibrillation with RVR, new
-rate OK and BP soft -> stop diltiazem and use metoprolol only
-Oral Anticoagulation: Apixaban 5mg BID.
-[id number]: Score 5 (HTN, prior Stroke/TIA, age 65-74, female gender)
-EFREN/CV -> she asked to defer since she is very uncomfortable with nausea and fatigue.
Severe MR
- EFREN tomorrow
- Unclear if MR is primary event (MR causing AF) or MR secondary to HF (but not a lot of HF). EFREN will help
Orthostasis - volume given and dilt held -> improved BP
Nausea & fatigue - not consistent with her cardiac issues...
HTN - BP goals per Neuro
Hypertriglyceridemia, on Vascepa
B cell lymphoma, on IVIG Q4 weeks (managed at [place] - Dr. Koenig)
RA, on MTX
Subjective: No CP, palps. Occasional dyspnea that is random and fleeting.
Data:
TTE Oct 11: EF 60%, severe MR, moderate TR PASP 30
Physical Exam
Vital Signs/Labs
Vital Signs
Temp Pulse Resp BP Pulse Ox
36.5 C 68 13 100/70 97
10/12/23 03:38 10/12/23 06:00 10/12/23 06:00 10/12/23 06:00 10/12/23 06:00
10/11/23 10/12/23 10/13/23
06:59 06:59 06:59
Actual Weight 169 lb 1.513 oz
10/12/23 04:00
10/12/23 04:00
PT 13.2 Sec (11.4-14.6) 10/10/23 12:03
INR 0.98 10/10/23 12:03
APTT Cancelled 10/11/23 12:20
Magnesium 1.9 mg/dl (1.6-2.3) 10/10/23 12:03
Triglycerides 189 mg/dl (10-149) H 10/10/23 12:03
LDL Cholesterol, Calc 55 mg/dl 10/10/23 12:03
VLDL Cholesterol, Calc 37 mg/dl (0-30) H 10/10/23 12:03
HDL Cholesterol 54 mg/dl 10/10/23 12:03
LAB Results
10/10/23
12:03
Troponin I < 0.012
Physical Exam
Constitutional: No acute distress
EENT: Anicteric and Moist mucous membranes
Cardiovascular: Pedal edema is absent, Diastolic murmur absent, Rhythm/rate is irregular and Systolic murmur present
Respiratory: Respiratory effort normal, Lungs clear to auscul., Crackles Absent and Rhonchi Absent
GI: Soft, Distention absent, Non tender and Normal bowel sounds
Neuro/Psych: Alert
Data Reviewed
-
Date of Service: October 12, 2023
Medical Tests (PFT, Pathology etc): Other (Tele with rate controlled AF)
--- NOTE | 2023-10-12 08:22 | CON.PUL ---
Consultation
Consultation Request
Date/Time Consultation Requested: 10/11/2023 - 1600
Date/Time Consultation Performed: 10/12/2023 - 804
Requesting Provider: Dr. Babcock
Performing Provider: Dr. Hansen
Reason for Consultation: SOB/hypoxia
Medical History
-
Chief Complaint: Difficulty speaking/walking
History of Present Illness:
68-year-old female with past med history of hypertension, RA and B-cell leukemia presented with visual changes. Found to be in new onset A-fib with RVR via EMS, and patient brought to ER for further evaluation. Stroke alert called and initial head
CT showed mild sulcal effacement in the right middle cerebral artery distribution concerning for an MCA infarct. Brain MRI performed showing no evidence of an acute infarction. Carotid ultrasound showed no evidence for flow-limiting carotid
stenosis. MRA of the head showed mild amount of intracranial atherosclerotic disease without evidence of high-grade LVO or stenosis. Neurology was consulted who diagnosed the patient with TIA due to new atrial fibrillation. Patient also endorses
dyspnea and has required supplemental oxygen with 2 L/min. Echo was done showing LVEF 55 to 60%, with normal RV size and function with severe mitral regurgitation and moderate, eccentric TR with PASP of 30�35. Due to patient's shortness of
breath with hypoxia, pulmonary services now consulted for additional recommendations.
When I saw the patient she was in bed, in no acute distress saturating 90% on 2 L/min nasal cannula. She has been having shortness of breath at night for the last few weeks and she meant to make an appointment with her doctor or find a pulmonary
doctor to discuss this further. She is a non-smoker. 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 She denies any exposure to find dust, silica or other inhalational irritants. She says that she initially came to the hospital few days ago
after she went for a walk she felt an aura with lightheadedness, dizziness and had difficulty coordinating her hands and legs and was confused. No headache at this time. No prior episodes of this, and no recent stress. The symptoms are currently
resolved and she feels okay now. Able to speak without difficulty and her arm/leg coordination is back to normal currently. She does feel short of breath still and it comes and goes. Her current heart rate is 92, BP 106/76. She denies chest
pain, headache, cough, abdominal pain, fevers or chills.
PMHx: Hypertension, B-cell leukemia, RA, history of diverticulitis, GERD
PSHx: Abdominal surgery, back surgery, left knee surgery, cholecystectomy, hysterectomy, brain surgery
Past Medical History
Past Medical History: Other (Above as per HPI)
Past Surgical History: Other (Above as per HPI)
Social History
Tobacco: Non-smoker
Alcohol: None
Drug: None
Living: Alone
Family History
Family History: Reviewed & Not Pertinent
Allergies / Home Medications
Allergies
Allergy/AdvReac Type Severity Reaction Status Date / Time
hydromorphone [From Dilaudid] Allergy Unknown Verified 10/10/23 11:55
Iodinated Contrast Media Allergy Unknown Verified 10/10/23 11:55
Home Medications
Medication Instructions Recorded Confirmed Last Taken Type
amlodipine 5 mg tablet 5 mg PO DAILY Blood Pressure 10/10/23 10/10/23 10/10/23 History
ascorbic acid (vitamin C) 1,000 mg 1,000 mg PO HS Supplement 10/10/23 10/10/23 10/09/23 History
tablet (Vitamin C)
atorvastatin 20 mg tablet 20 mg PO DAILY High Cholesterol 10/10/23 10/10/23 10/10/23 History
cyanocobalamin (vitamin B-12) 1 tab PO HS Supplement 10/10/23 10/10/23 10/09/23 History
docusate sodium 100 mg capsule 100 mg PO DAILY Constipation 10/10/23 10/10/23 10/10/23 History
(Stool Softener)
famotidine 40 mg tablet 40 mg PO QPM Gastrointestinal Issue 10/10/23 10/10/23 10/09/23 History
folic acid 1 mg tablet 1 mg PO SUMOTUWETHFR@0800 10/10/23 10/10/23 10/10/23 History
Supplement
icosapent ethyl 1 gram capsule 2 g PO BID High Cholesterol 10/10/23 10/10/23 10/09/23 History
(Vascepa)
methotrexate sodium 2.5 mg tablet 20 mg PO SA@0800 Autoimmune 10/10/23 10/10/23 10/08/23 History
Disorder
metoprolol succinate 25 mg 25 mg PO BID Heart 10/10/23 10/10/23 10/10/23 History
tablet,extended release 24 hr Disease/Condition
morphine 100 mg tablet,extended 100 mg PO Q12H Pain 10/10/23 10/10/23 10/10/23 History
release
morphine 200 mg tablet,extended 200 mg PO Q12H Pain 10/10/23 10/10/23 10/10/23 History
release
morphine 30 mg immediate release 30 mg PO Q8H PRN breakthrough pain 10/10/23 10/10/23 Unknown History
tablet
naloxegol 25 mg tablet (Movantik) 25 mg PO DAILY Constipation 10/10/23 10/10/23 10/10/23 History
omeprazole 40 mg capsule,delayed 40 mg PO DAILY Gastrointestinal 10/10/23 10/10/23 10/10/23 History
release Issue
prochlorperazine 25 mg rectal 25 mg SD BID PRN nausea 10/10/23 10/10/23 10/08/23 History
suppository (Compro)
vitamin A 1 tab PO HS Supplement 10/10/23 10/10/23 10/09/23 History
vitamin E 1 tab PO HS Supplement 10/10/23 10/10/23 10/09/23 History
Review of Systems
-
History Source: Patient
All other systems: Negative unless noted (12 point ROS performed and is negative unless mentioned above.)
Vitals / Labs / Diagnostic Testing
Vital Signs
Temp Pulse Resp BP Pulse Ox
98.3 F 68 13 100/70 97
01/31/24 07:30 10/12/23 06:00 10/12/23 06:00 10/12/23 06:00 10/12/23 06:00
Lab Data
10/12/23 04:00
10/12/23 04:00
Laboratory Results
10/11/23
12:20
APTT Cancelled
Diagnostic Testing:
Physical Exam
-
HEENT: Normocephalic and Anicteric
Cardiovascular: Irregular Rhythm (Irregularly irregular), Murmur and Peripheral Edema (Negative)
Respiratory: Clear, Wheeze (Negative), Rales (Negative) and Rhonchi (Negative)
GI: Soft, Non Distended and Non Tender
Neurology: Awake and Alert
Skin: Warm and Dry
General: Comfortable and Chills (Negative)
Assessment
-
Assessment: 68-year-old female with past med history of hypertension, RA and B-cell leukemia presented with visual changes. Found to be in new onset A-fib with RVR via EMS, and patient brought to ER for further evaluation. Stroke alert called and
initial head CT showed mild sulcal effacement in the right middle cerebral artery distribution concerning for an MCA infarct. Brain MRI performed showing no evidence of an acute infarction. Carotid ultrasound showed no evidence for flow-limiting
carotid stenosis. MRA of the head showed mild amount of intracranial atherosclerotic disease without evidence of high-grade LVO or stenosis. Neurology was consulted who diagnosed the patient with TIA due to new atrial fibrillation. Patient also
endorses dyspnea and has required supplemental oxygen with 2 L/min. Echo was done showing LVEF 55 to 60%, with normal RV size and function with severe mitral regurgitation and moderate, eccentric TR with PASP of 30�35. Due to patient's shortness
of breath with hypoxia, pulmonary services now consulted for additional recommendations.
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
Impression:
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
#Severe mitral regurgitation
#Dysarthria and difficulty walking due to TIA
#New onset A-fib - now rate controlled
#GERD
Plan:
- Check 2v-CXR --> shows small bilateral pleural effusions with pulmonary vascular congestion (my read) --> stop IVF and give trial of lasix with 20mg IVP x1 as she is lasix na�ve
- Cardiology on board --> defer A-fib and MR management to them --> awaiting EFREN with cardioversion, but she deferred this today as she had malaise with nausea + fatigue
- Heart rate control with goal <110bpm
- Replete K>4, Mg>2, PO4>3
- maintain SpO2 >90-94% with supplemental oxygen
- Walking pulse ox prior to discharge
- Encourage incentive spirometer use
- Encourage up OOB; PT/OT
- Patient not bronchospastic - no need for nebulized bronchodilators but I will order Xopenex to be used prn
- DVT ppx
Pulmonary service will continue to briefly follow along. I will arrange for outpatient follow-up with me in the office with full PFTs. I also advised her to follow-up with gastroenterology given her longstanding history of GERD, and to evaluate
for endoscopy as she may have hiatal hernia and/or Bowens's esophagus.
Data:
CT Head 10-10-2023:
There is mild sulcal effacement in the right middle cerebral artery distribution without obscuration of the normal kennedy-white junction.
While this may be normal variant, given the patient's clinical history, this may reflect the earliest changes of edema from right middle cerebral artery infarct.
If clinically indicated, MRI could be performed for further evaluation
Brain MRI 10-10-2023:
1. � No MRI evidence for acute infarct.
2. � Mild diffuse cerebral and cerebellar volume loss.
--- NOTE | 2023-10-12 08:54 | W.PN.HOSP.TC ---
Today's Communication/Plan
-
transfer back to IMU status
serial troponins
add bowel regimen
await pulm for completeness
Assessment / Plan
Assessment / Plan
pt is a 68 year old female
n/v/c/symptomatic orthostasis--will try to get bowels moving--on colace already--also n/v could be anginal equivalent, EKG OK, check serial troponis--received 2 IVF bolus
new onset afib-- cardizem drip transitioned to oral, IV heparin transitioned to Eliquis--apprec cards--echo with severe dilatated left atrium and mitral stenosis, could be cause of all issues-TSH WNL
Acute Right MCA infarct ruled out as MRI negative--prior symptoms Slurred speech, right eye visual deficit--symptoms resolved, unclear cause of symptoms--apprec neuro--PT/OT/speech--neuro checks--lipid profile (T Chol 146, LDL 55, VLDL 37, HDL 54,
triglycerides 189)--cont statin therapy
Chronic abdominal pain secondary to adhesions on chronic opiates---Morphine 300 mg every 12 hours, 30 mg every 8 hours as needed breakthrough pain as baseline meds--decrease to 200 mg and add bowel regimen
Opiate induced constipation--Continue Movantik (at lower than usual dosing due to cardizem)
Leukemia B-cell--Port to transfer IVIG infusions at [facility]
Rheumatoid arthritis--Methotrexate 20 mg on Saturdays
Essential HTN--Continue amlodipine 5 mg daily with hold parameters--Metoprolol succinate 25 mg twice daily will hold while on Cardizem
HLD--Lipid profile-T Chol 146, LDL 55, VLDL 37, HDL 54, triglycerides 189--Continue atorvastatin 20 mg daily
GERD--Continue Pepcid 40 mg every afternoon, omeprazole
Trigeminal neuralgia hx
hx of renal and biliary stents (just found out from RN)--renal artery stent for renal artery stenosis--unclear why biliary stent
code status --Full code
Anticipated Discharge: > 48 hours
Subjective/Interval History
-
Date of Service: October 12, 2023
pt c/o n/v/constipation
Objective Data
-
Labs:
Laboratory Results
10/12/23
04:00
WBC 4.3 L
Hgb 11.3 L
Hct 33.4 L
Plt Count 157
Sodium 135
Potassium 4.1
Chloride 105
Carbon Dioxide 24
BUN 17
Creatinine 0.7
Glucose 113 H
Calcium 8.4
Total Bilirubin 0.6
AST 30
ALT 17
Alkaline Phosphatase 55
Vital Signs:
max temp for 24 hours
10/12/23
03:38
Temp 97.7 F
Vital Signs
Temp Pulse Resp BP Pulse Ox
97.7 F 68 13 100/70 97
10/12/23 03:38 10/12/23 06:00 10/12/23 06:00 10/12/23 06:00 10/12/23 06:00
I&O
10/11/23 10/12/23 10/13/23
06:59 06:59 06:59
Intake Total 400 / 400 1999 / 1999
Balance 400 / 400 1999 / 1999
Review of Systems
-
All other systems: Reviewed and negative
Respiratory: Reports Trouble Breathing
Abdomen/GI: Reports Nausea, Vomiting and Constipated
Physical Exam
-
General: Well Developed, Well Nourished and No Apparent Distress
HEENT: Normocephalic, Atraumatic and Oxygen
Respiratory: Clear to Auscultation; Negative Wheezes or Rhonchi
Cardiac: Irregular Rhythm
GI: Soft, Nontender and Nondistended; Negative Normal Bowel Sounds (hypoactive)
Musculoskeletal: No Clubbing, No Cyanosis and No Edema
Skin: Warm
Neuro: Awake
--- NOTE | 2023-10-12 09:15 | CM ---
Patient seen at bedside, Patient with washcloth on head due to headache. CM will continue to follow for discharge planning needs.
Plan; home with VN/family supports watch for therapy recommendations.
--- NOTE | 2023-10-12 09:19 | CM ---
Patient seen at bedside, Patient with washcloth on head due to headache. Therapy recommending possible Acute rehab. CM will continue to follow for discharge planning needs.
Plan; Acute rehab vs home with VN/family supports.
[2023-10-12] MEDS: LIPITOR 20 MG PO (09:20)
[2023-10-12] MEDS: MS CONTIN (EXTENDED RELEASE) 200 MG PO ×2 (09:20→20:17)
[2023-10-12] MEDS: ELIQUIS 5 MG PO ×2 (09:20→20:17)
[2023-10-12] MEDS: COLACE 100 MG PO (09:20)
[2023-10-12] MEDS: PROTONIX 40 MG PO (09:21)
[2023-10-12] MEDS: TOPROL XL 50 MG PO (09:21)
[2023-10-12] MEDS: FOLVITE 1 MG PO (09:21)
[2023-10-12] MEDS: MS CONTIN (EXTENDED RELEASE) PO (09:30)
[2023-10-12 09:55] LABS: Troponin I < 0.012 ng/ml
[2023-10-12] MEDS: DULCOLAX 10 MG RECTAL (09:58)
[2023-10-12] MEDS: NSS 1000 IV (09:58)
[2023-10-12] MEDS: SENOKOT 17.1999999999999993 MG PO ×2 (09:58→20:18)
--- NOTE | 2023-10-12 11:00 | PN.CDI ---
CDI
- -
CDI:
Physician Documentation Request
Admit Date: 10/10/23 14:33
Dear Doctor Sadiq,
Patient reported to ED after feeling dizzy, off balanced trouble walking and developed weakness, 'on arrival symptoms appear to have resolved'
10/11 neurology note state 'TIA presumed due to new atrial fibrillation'
Hospitalist progress notes state 'Acute Right MCA infarct ruled out as MRI negative'
Please indicate in your progress notes if you are in agreement that the above diagnosis is valid for this patient:
____ - TIA is a valid diagnosis (Please include it in your progress notes)
____ - TIA is not a valid diagnosis for this patient
____ - Other
Use of terms such as suspected, likely, concern for, or probable are acceptable for a diagnosis that is being evaluated, monitored or treated as if it exists and can be coded in the inpatient setting, when documented at the time of discharge.
Thank you,
Anne Terrell RN, BSN
CDI Specialist
tiger text
Please use your independent medical judgment in providing your response.
--- NOTE | 2023-10-12 12:22 | PTCARENOTE ---
Assumed care of patient at beginning of this shift from previous RN. Patient continued with nausea on initial rounds despite being given zofran at 03:43; she was given zofran again at 09:26 with relief. She also continues with lightheadedness when
standing and intermittent headache, as well as intermittent sudden onset of SOB that is brief. She states she has felt better since wearing O2 2l n/c (POx 94-98%). She informed this nurse today that she has nausea at home and take a suppository, if
needed, with relief. Dr Babcock up this morning to see patient and made aware. This nurse also made her aware that patient has a renal/biliary stent with copy of card placed on chart. NSS was ordered at 60ml/hr. Pulmonary in to see patient; 2 view
cxr ordered and done. IVF d/c'd and lasix ordered IV. Patient states she prefers no lights on in room and has decreased appetite. She was NPO this morning, then order changed to NPO after MN per Dr Diego. Per patient: no bm since the day prior to
admission; Dr Babcock made aware and ordered suppository and Senokot in addition to scheduled Colace. See worklist for full assessment and vital signs; see MAR for med administration.
[2023-10-12] MEDS: LASIX 20 MG IV (12:41)
[2023-10-12 12:48] LABS: Phosphorus 4.6 mg/dl (2.5-4.5)
[2023-10-12 17:00] LABS: Troponin I < 0.012 ng/ml
[2023-10-12] MEDS: PEPCID 40 MG PO (17:37)
[2023-10-12] MEDS: TOPROL XL PO (20:19)
[2023-10-13] VITALS (23 sets, daily range): BP systolic 84–120; BP diastolic 49–79; PULSE 101–107; O2SAT 96–97; BMI 27.4
[2023-10-13] MEDS: TYLENOL PO ×2 (00:13→17:06)
--- NOTE | 2023-10-13 01:15 | PTCARENOTE ---
Pt complained of nausea at 2019 and medicated with Zofran with relief. She said she was comfortable and sleeps when undisturbed. No complaints of dizziness. 1999 Toprol held due to low BP per parameters. Heart monitor shows Atrial Fibrillation
with a controlled ventricular response.
[2023-10-13] MEDS: ZOFRAN 4 MG IV ×3 (02:16→19:10)
[2023-10-13] MEDS: TYLENOL 650 MG PO ×4 (04:25→20:39)
[2023-10-13 04:49] LABS: % Basophils 0.5 % (0-2); % Eosinophils 5.4 % (0-6); % Immature Granulocytes 0.4 % (0-0.5); % Lymphocytes 16.4 % (20.5-51.1); % Monocytes 4.9 % (1.7-9.3); % Neutrophils 72.4 % (42.2-75.2); Absolute Eosinophils 0.3 10^3/uL (0-0.7); Absolute Lymphocytes 0.9 10^3/uL (1.2-3.4); Absolute Monocytes 0.3 10^3/uL (0.1-0.6); Hematocrit 35.6 % (37.0-47.0); Hemoglobin 12.1 g/dL (12.0-16.0); Mean Corpuscular Volume 91.3 fL (81.0-99.0); Mean Platelet Volume 10.6 fL (7.4-10.4); Nucleated Red Blood Cells % 0 %; Platelet Count 156 10^3/uL (130-400); Red Cell Dist. Width 13.7 % (11.5-14.5); White Blood Cell Count 5.5 10^3/uL (4.8-10.8)
[2023-10-13 06:09] LABS: ALT (SGPT) 17 U/L (0-35); AST (SGOT) 27 U/L (14-36); Albumin 3.2 g/dl (3.5-5.0); Alkaline Phosphatase 63 U/L (38-126); Blood Urea Nitrogen 17 mg/dl (7-17); Calcium 8.9 mg/dl (8.4-10.2); Carbon Dioxide 28 mmol/L (22-30); Chloride 102 mmol/L (98-107); Estimated Creatinine Clearance 70 ml/min; Glucose 101 mg/dl (70-99); Magnesium 1.9 mg/dl (1.6-2.3); Sodium 137 mmol/L (135-145); Total Bilirubin 0.5 mg/dl (0.2-1.3); Total Protein 5.5 g/dl (6.3-8.2); eGFR > 60.00
--- NOTE | 2023-10-13 08:15 | W.PN.HOSP.TC ---
Today's Communication/Plan
-
pt concerned re: low BP, dizziness
waiting for procedure this AM
Assessment / Plan
Assessment / Plan
pt is a 68 year old female
N/V/constipation--bowels moving--son to bring in Movantik, spoke with patient about needing decreased dose due to cardiac meds--troponin neg, nausea not likely anginal equivalent--cont colace/senna
symptomatic orthostasis--ongoing--perhaps better post EFREN/CV?--although agree may be difficult to keep in SR with mitral regurg
new onset afib-- cardizem drip transitioned to oral, IV heparin transitioned to Eliquis--apprec cards--echo with severe dilatated left atrium and mitral stenosis, could be cause of all issues-TSH WNL
Acute Right MCA infarct ruled out as MRI negative, possible TIA per neuro--prior symptoms Slurred speech, right eye visual deficit--symptoms resolved--apprec neuro--PT/OT/speech--neuro checks--lipid profile (T Chol 146, LDL 55, VLDL 37, HDL 54,
triglycerides 189)--cont statin therapy
Chronic abdominal pain secondary to adhesions on chronic opiates---Morphine 300 mg every 12 hours, 30 mg every 8 hours as needed breakthrough pain as baseline meds--decrease to 200 mg and add bowel regimen--bowels moving
Opiate induced constipation--Continue Movantik (at lower than usual dosing due to cardizem)
Leukemia B-cell--Port to transfer IVIG infusions at [facility]
Rheumatoid arthritis--Methotrexate 20 mg on Saturdays
Essential HTN--Continue amlodipine 5 mg daily with hold parameters--Metoprolol succinate 25 mg twice daily will hold while on Cardizem
HLD--Lipid profile-T Chol 146, LDL 55, VLDL 37, HDL 54, triglycerides 189--Continue atorvastatin 20 mg daily
GERD--Continue Pepcid 40 mg every afternoon, omeprazole
Trigeminal neuralgia hx
hx of renal and biliary stents--renal artery stent for renal artery stenosis--unclear why biliary stent
migraines--maxalt as needed
code status --Full code
Anticipated Discharge: > 48 hours
Subjective/Interval History
-
Date of Service: October 13, 2023
pt concerned about her low BP AND dizzy with getting up
Objective Data
-
Labs:
Laboratory Results
10/13/23
04:36
WBC 5.5
Hgb 12.1
Hct 35.6 L
Plt Count 156
Sodium 137
Potassium 4.0
Chloride 102
Carbon Dioxide 28
BUN 17
Creatinine 0.8
Glucose 101 H
Calcium 8.9
Total Bilirubin 0.5
AST 27
ALT 17
Alkaline Phosphatase 63
Vital Signs:
max temp for 24 hours
10/12/23
15:25
Temp 98.2 F
Vital Signs
Temp Pulse Resp BP Pulse Ox
97.8 F 88 13 96/75 99
10/13/23 02:51 10/13/23 06:00 10/13/23 06:00 10/13/23 06:00 10/13/23 06:00
I&O
10/12/23 10/13/23 10/14/23
06:59 06:59 06:59
Intake Total 1999 240 / 240
Balance 1999 240 / 240
Review of Systems
-
All other systems: Reviewed and negative
Neuro: Reports Dizzy
Physical Exam
-
General: Well Developed, Well Nourished and No Apparent Distress
HEENT: Normocephalic and Atraumatic; Negative Oxygen
Respiratory: Clear to Auscultation; Negative Wheezes, Rales, Rhonchi or Crackles
Cardiac: Irregular Rhythm
GI: Soft, Nontender, Nondistended and Normal Bowel Sounds
Musculoskeletal: No Clubbing, No Cyanosis and No Edema
Neuro: Awake
Psych: Calm
--- NOTE | 2023-10-13 08:41 | W.PN.CD ---
Today's Communication / Plan
-
EFREN/DCCV today
Impression / Plan
-
Impression: 68F with PMH HTN, B cell leukemia (in remission on IVIG), rheumatoid arthritis presents to ED with visual changes concerning for TIA (MRI negative). Also found to have new A fib with RVR and severe MR (which appears chronic).�
Plan:
Visual changes: concern for TIA
-New atrial fibrillation this admission, plan as below
-Neurology following
-LDL at goal
-Carotids, MRA, MRI benign
Atrial fibrillation with RVR, new
-rates better: Toprol XL increased to 50mg bid this admission
-Oral Anticoagulation: Apixaban 5mg BID.
-[id number]: Score 5 (HTN, prior Stroke/TIA, age 65-74, female gender)
-EFREN/CV -> today
Severe MR
- EFREN today
-eventual evaluation for surgical intervention vs MitraClip (she is young, but with multiple co-morbidities)
- Unclear if MR is primary event (MR causing AF) or MR secondary to HF (but not a lot of HF)
Orthostasis - volume given and dilt stopped -> improved BP
Nausea & fatigue - not consistent with her cardiac issues...
HTN - BP goals per Neuro
Hypertriglyceridemia, on Vascepa
B cell lymphoma, on IVIG Q4 weeks (managed at [facility] - Dr. Koenig)
RA, on MTX
Subjective:
No chest pain or palps. SOB better. Nausea better.
Data:
TTE Oct 11: EF 60%, severe MR, moderate TR PASP 30
Physical Exam
Vital Signs/Labs
Vital Signs
Temp Pulse Resp BP Pulse Ox
97.8 F 88 13 96/75 99
10/13/23 02:51 10/13/23 06:00 10/13/23 06:00 10/13/23 06:00 10/13/23 06:00
10/12/23 10/13/23 10/14/23
06:59 06:59 06:59
Actual Weight 77.1 kg
10/13/23 04:36
10/13/23 04:36
PT 13.2 Sec (11.4-14.6) 10/10/23 12:03
INR 0.98 10/10/23 12:03
APTT Cancelled 10/11/23 12:20
Magnesium 1.9 mg/dl (1.6-2.3) 10/13/23 04:36
Triglycerides 189 mg/dl (10-149) H 10/10/23 12:03
LDL Cholesterol, Calc 55 mg/dl 10/10/23 12:03
VLDL Cholesterol, Calc 37 mg/dl (0-30) H 10/10/23 12:03
HDL Cholesterol 54 mg/dl 10/10/23 12:03
LAB Results
10/10/23 10/12/23 10/12/23
12:03 09:14 16:28
Troponin I < 0.012 < 0.012 < 0.012
10/12/23
20:00
Troponin I Cancelled
Physical Exam
Constitutional: No acute distress and Comfortable
EENT: Moist mucous membranes
Cardiovascular: Pedal edema is absent, JVD pressure is normal, Rhythm/rate is irregular and Systolic murmur present
Respiratory: Respiratory effort normal and Lungs clear to auscul.
GI: Soft, Distention absent and Flat
Neuro/Psych: AO x 3
Data Reviewed
-
Date of Service: October 13, 2023
EKG: Other (Tele: A fib 90s)
Labs: Labs Reviewed by me
[2023-10-13] MEDS: COLACE 100 MG PO (09:04)
[2023-10-13] MEDS: LIPITOR 20 MG PO (09:04)
[2023-10-13] MEDS: MS CONTIN (EXTENDED RELEASE) 200 MG PO ×2 (09:04→20:30)
[2023-10-13] MEDS: ELIQUIS 5 MG PO ×2 (09:04→20:29)
[2023-10-13] MEDS: PROTONIX 40 MG PO (09:06)
[2023-10-13] MEDS: FOLVITE 1 MG PO (09:06)
[2023-10-13] MEDS: TOPROL XL 50 MG PO ×2 (09:09→20:39)
[2023-10-13] MEDS: SENOKOT PO ×2 (09:10→20:34)
--- NOTE | 2023-10-13 09:36 | CM ---
Patient seen at bedside, Patient for procedure today. CM will continue to follow for discharge planning needs.
Plan; TBD; patient plan is home with VN
--- NOTE | 2023-10-13 10:36 | PTCARENOTE ---
Patient had urinary urgency this morning, voided x2 scant to small amount, dark yellow but still felt pressure. PVR 14ml. Dr Babcock updated via tiger text; instructed to follow for now. Patient continues to c/o dizziness; ortho vs done. BP 99/68
with HR 106 sitting and 100/76, HR 119 standing. Patient then reported she had a history of vertigo several years ago, but dizziness was worse at that time. She remains NPO for EFREN today, no time given as of yet.
--- NOTE | 2023-10-13 11:11 | W.PN.PUL3 ---
Today's Communication / Plan
-
Await EFREN cardioversion
Mild egophony at left base on exam
Questionable small effusion on lateral per chest x-ray
GERD therapy
Follow clinically
Assessment
-
Assessment: 68-year-old female with past med history of hypertension, RA and B-cell leukemia presented with visual changes. Found to be in new onset A-fib with RVR via EMS, and patient brought to ER for further evaluation. Stroke alert called and
initial head CT showed mild sulcal effacement in the right middle cerebral artery distribution concerning for an MCA infarct. Brain MRI performed showing no evidence of an acute infarction. Carotid ultrasound showed no evidence for flow-limiting
carotid stenosis. MRA of the head showed mild amount of intracranial atherosclerotic disease without evidence of high-grade LVO or stenosis. Neurology was consulted who diagnosed the patient with TIA due to new atrial fibrillation. Patient also
endorses dyspnea and has required supplemental oxygen with 2 L/min. Echo was done showing LVEF 55 to 60%, with normal RV size and function with severe mitral regurgitation and moderate, eccentric TR with PASP of 30�35. Due to patient's shortness
of breath with hypoxia, pulmonary services now consulted for additional recommendations.
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
Impression:
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
#Severe mitral regurgitation
#Dysarthria and difficulty walking due to TIA
#New onset A-fib - now rate controlled
#GERD
Plan:
At this time, patient objectively improved from shortness of breath standpoint
Primary complaint is dizziness, lightheadedness, palpitations with positional therapy denies nausea, emesis at this time
Chest x-ray without acute findings
She has mild egophony at the left base on exam. There may be small mild pleural effusion on the lateral
Moving forward
Continue with management per cardiology
Await EFREN with cardioversion later today
Currently saturation adequate on nasal cannula
Exam findings noted
Follow clinically
GERD symptoms noted, patient typically sleeps with head of bed elevated greater than 30 degrees
DVT prophylaxis: On Eliquis
GI prophylaxis: On pantoprazole
Reviewed with patient at length, questions answered
Will follow
Data:
CXR 10/12/2023: acute findings, there may be a small posterior basilar effusion on the lateral
CT Head 10-10-2023:
There is mild sulcal effacement in the right middle cerebral artery distribution without obscuration of the normal kennedy-white junction.
While this may be normal variant, given the patient's clinical history, this may reflect the earliest changes of edema from right middle cerebral artery infarct.
If clinically indicated, MRI could be performed for further evaluation
Brain MRI 10-10-2023:
1. � No MRI evidence for acute infarct.
2. � Mild diffuse cerebral and cerebellar volume loss.
Subjective Data
-
Date of Service:
Date of Service: October 13, 2023
Subjective:
Patient feels breathing has improved. She still complains of palpitations, lightheadedness with positional changes. She sleeps with head of bed elevated for GERD reasons. Denies chest pain.
Objective Data
Data Reviewed
Vital Signs / I&O / Oxygen:
Vital Signs
Temp Pulse Resp BP Pulse Ox
97.7 F 111 13 108/74 99
10/13/23 07:20 10/13/23 09:09 10/13/23 06:00 10/13/23 09:09 10/13/23 06:00
Intake and Output
10/12/23 10/13/23 10/14/23
06:59 06:59 06:59
Intake Total 1999 240 / 240
Balance 1999 240 / 240
SaO2 99
Nasal Cannula flow liters per 2
minute
Physical Exam
General: Comfortable
HEENT: Normocephalic, Anicteric and Moist Mucous Membranes
Cardiovascular: S1-S2, Regular Rhythm, Murmur (n), Rub (n) and Peripheral Edema (n)
Respiratory: Wheeze (n), Crackles (n), Rhonchi (n), Non-Labored Respirations and Egophony (Mild left base)
GI: Soft, Non Distended and Non Tender
Neurology: Awake, Alert and No Motor Deficits (Able to sit up without assistance)
Skin: Cyanosis (n), Jaundice (n) and Rash (n)
Labs/Micro/Reports
Lab Data
10/13/23 04:36
10/13/23 04:36
--- NOTE | 2023-10-13 11:55 | ITS.CL.CARDI ---
Scientific Process Operator - Cardioversion
Cardioversion
Procedure Report:
Date of Procedure:
Procedure: Cardioversion
Indication: Symptomatic atrial fibrillation
Performing Physician: Ricky Harley MD
Technique: The patient was brought to the holding area. Signed informed consent was obtained. A time out was called and performed. The patient was anesthetized by the anesthesia service. Anticoagulation status was reviewed and appropriate. R2 pads
were placed anteriorly and posteriorly. After EFREN revealed no left atrial appendage thrombus, a 200 J synchronized biphasic shock restored normal sinus rhythm without significant bradycardia. There were no complications.
Conclusion: Uncomplicated cardioversion from atrial fibrillation to sinus rhythm.
Recommendation: Routine post cardioversion care. Continue terminal carman anticoagulation.
--- NOTE | 2023-10-13 13:06 | PTCARENOTE ---
Patient returned from EFREN/cardioversion; currently SR. Patient ok to resume previous diet as per Dr Babcock.
[2023-10-13] MEDS: PEPCID 40 MG PO (18:01)
[2023-10-14] VITALS (10 sets, daily range): BP systolic 79–105; BP diastolic 54–76; PULSE 59; O2SAT 100; BMI 27.5
[2023-10-14] MEDS: TYLENOL PO ×2 (00:34→04:48)
--- NOTE | 2023-10-14 00:47 | PTCARENOTE ---
Pt was up OOB to the bathroom. No dizziness, tolerated it well. At change of shift and at 00;46 pt had short runs of PAF/PAT 6-9 seconds each and has no complaints. She continues to have nausea and was medicated with Zofran at the change of shift
with little improvement noted. She has been eating crackers and domonique william to help but is now requesting Compazine. She uses Compazine at home, CLIENT SERVICES ADMINISTRATOR notified, will await orders.
[2023-10-14] MEDS: COMPAZINE 5 MG IV ×2 (01:02→17:54)
[2023-10-14] MEDS: SENOKOT 17.1999999999999993 MG PO ×3 (02:34→20:50)
--- NOTE | 2023-10-14 02:53 | PTCARENOTE ---
Addendum entered by Citlaly Reina RN 10/14/23 03:00:
Pt also noted to have irregular breathing and periods of apnea while sleeping but will maintain O2 sat on 2 liters NC.
Original Note:
Pt feels better after IV Compazine. No more nausea and she requested and was given the Senokot that she had refused earlier this shift. Heart rhythm is sinus bradycardia 45-53 with occasional PAC's.
[2023-10-14 05:18] LABS: Hematocrit 33.6 % (37.0-47.0); Hemoglobin 11.4 g/dL (12.0-16.0); Mean Corp Hgb Conc. 33.9 g/dL (33.0-37.0); Mean Corpuscular Hgb 31.7 pg (27.0-31.0); Mean Corpuscular Volume 93.3 fL (81.0-99.0); Mean Platelet Volume 11.2 fL (7.4-10.4); Platelet Count 142 10^3/uL (130-400); Red Cell Dist. Width 13.8 % (11.5-14.5); White Blood Cell Count 5.6 10^3/uL (4.8-10.8)
[2023-10-14 05:50] LABS: NT-proBNP 2050 pg/ml
[2023-10-14 06:03] LABS: Blood Urea Nitrogen 22 mg/dl (7-17); Calcium 8.5 mg/dl (8.4-10.2); Carbon Dioxide 24 mmol/L (22-30); Chloride 102 mmol/L (98-107); Estimated Creatinine Clearance 70 ml/min; Glucose 99 mg/dl (70-99); Magnesium 1.9 mg/dl (1.6-2.3); Potassium 3.9 mmol/L (3.5-5.1); Sodium 135 mmol/L (135-145); eGFR > 60.00
--- NOTE | 2023-10-14 07:56 | W.PN.CD ---
Today's Communication / Plan
-
reduce Toprol XL back to 25mg bid
eliquis 5mg bid
lasix 20mg prn for weight gain, edema
son updated by phone
discharge planning
we will arrange for follow up with us
please call us with additional questions
Impression / Plan
-
Impression: 68F with PMH HTN, B cell leukemia (in remission on IVIG), rheumatoid arthritis presents to ED with visual changes concerning for TIA (MRI negative). Also found to have new A fib with RVR and moderate/severe MR (which appears chronic).�
Plan:
Visual changes: concern for TIA
-New atrial fibrillation this admission, plan as below
-Neurology following
-LDL at goal
-Carotids, MRA, MRI benign
Atrial fibrillation with RVR, new--> back in sinus after DCCV 10/13
-reduce Toprol XL back to 25mg bid due to bradycardia and hypotension
-Oral Anticoagulation: Apixaban 5mg BID.
-[id number]: Score 5 (HTN, prior Stroke/TIA, age 65-74, female gender)
MR
-severe on TTE, and moderate/severe on EFREN after diuresis
-eventual evaluation for surgical intervention vs MitraClip (she is young, but with multiple co-morbidities)
-outpatient follow up to determine timing of repeat echo and cath (will wait 30 days after DCCV)
Acute HFPEF
-when in rapid A fib
-resolved
-recommend lasix 20mg daily prn
Orthostasis - volume given and dilt stopped -> improved BP
Nausea & fatigue - not consistent with her cardiac issues...
HTN - stable
-h/o renal artery stent, and now on Toprol XL only
Hypertriglyceridemia, on Vascepa
B cell lymphoma, on IVIG Q4 weeks (managed at [facility] - Dr. Koenig)
RA, on MTX
Subjective:
Denies chest pain or palps. SOB better. No edema. Nausea better.
Data:
TTE Sep 30: EF 60%, severe MR, moderate TR PASP 30
Physical Exam
Vital Signs/Labs
Vital Signs
Temp Pulse Resp BP Pulse Ox
97.8 F 49 9 101/54 99
10/14/23 03:53 10/14/23 06:00 10/14/23 06:00 10/14/23 06:00 10/14/23 06:00
10/13/23 10/14/23 10/15/23
06:59 06:59 06:59
Actual Weight 77.1 kg 77.2 kg
10/14/23 04:46
10/14/23 04:46
PT 13.2 Sec (11.4-14.6) 10/10/23 12:03
INR 0.98 10/10/23 12:03
APTT Cancelled 10/11/23 12:20
Magnesium 1.9 mg/dl (1.6-2.3) 10/14/23 04:46
Triglycerides 189 mg/dl (10-149) H 10/10/23 12:03
LDL Cholesterol, Calc 55 mg/dl 10/10/23 12:03
VLDL Cholesterol, Calc 37 mg/dl (0-30) H 10/10/23 12:03
HDL Cholesterol 54 mg/dl 10/10/23 12:03
10/14/23
04:46
[id number] Pept 2050
LAB Results
10/12/23 10/12/23 10/12/23
09:14 16:28 20:00
Troponin I < 0.012 < 0.012 Cancelled
Physical Exam
Constitutional: No acute distress and Comfortable
EENT: Moist mucous membranes
Cardiovascular: Rhythm & rate is regular, Pedal edema is absent, JVD pressure is normal and Systolic murmur present
Respiratory: Respiratory effort normal, Lungs clear to auscul. and Wheeze Absent
GI: Soft, Distention absent and Flat
Neuro/Psych: AO x 3
Data Reviewed
-
Date of Service: October 14, 2023
EKG: Other (Tele: A fib-->sinus)
Echo: Tracing Personally Visualized and interpreted (moderate/severe MR)
Labs: Labs Reviewed by me
--- NOTE | 2023-10-14 08:29 | W.PN.PUL3 ---
Today's Communication / Plan
-
Chest exam has improved
No crackles on exam
Sinus rhythm
Increase activity, ambulate
Patient requesting pulmonary follow-up, information left in chart
We will sign off. Please call with questions
Assessment
-
Assessment: 68-year-old female with past med history of hypertension, RA and B-cell leukemia presented with visual changes. Found to be in new onset A-fib with RVR via EMS, and patient brought to ER for further evaluation. Stroke alert called and
initial head CT showed mild sulcal effacement in the right middle cerebral artery distribution concerning for an MCA infarct. Brain MRI performed showing no evidence of an acute infarction. Carotid ultrasound showed no evidence for flow-limiting
carotid stenosis. MRA of the head showed mild amount of intracranial atherosclerotic disease without evidence of high-grade LVO or stenosis. Neurology was consulted who diagnosed the patient with TIA due to new atrial fibrillation. Patient also
endorses dyspnea and has required supplemental oxygen with 2 L/min. Echo was done showing LVEF 55 to 60%, with normal RV size and function with severe mitral regurgitation and moderate, eccentric TR with PASP of 30�35. Due to patient's shortness
of breath with hypoxia, pulmonary services now consulted for additional recommendations.
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
Impression:
#SOB with acute respiratory failure with hypoxemia on supplemental oxygen - likely related to acute cardiogenic pulmonary edema from recent rapid A-fib in setting of severe MR - she was likely going in and out of A-fib COST RECORDER
#Severe mitral regurgitation
#Dysarthria and difficulty walking due to TIA
#New onset A-fib - now rate controlled
#GERD
Plan:
At this time, patient has improved objectively and subjectively
Dizziness has resolved post cardioversion
Denies nausea
Denies any shortness of breath, palpitations
Chest exam is clear, no egophony, no crackles
Moving forward
Continue with management per cardiology
Presently in sinus rhythm
Currently saturation adequate on nasal cannula
GERD symptoms noted, patient typically sleeps with head of bed elevated greater than 30 degrees
DVT prophylaxis: On Eliquis
GI prophylaxis: On pantoprazole
Reviewed with patient at length, questions answered
Patient has requested pulmonary follow-up due to respiratory issues, hypoxia
Information left in chart. All questions answered
We will sign off
Data:
CXR 10/12/2023: acute findings, there may be a small posterior basilar effusion on the lateral
CT Head 10-10-2023:
There is mild sulcal effacement in the right middle cerebral artery distribution without obscuration of the normal kennedy-white junction.
While this may be normal variant, given the patient's clinical history, this may reflect the earliest changes of edema from right middle cerebral artery infarct.
If clinically indicated, MRI could be performed for further evaluation
Brain MRI 10-10-2023:
1. � No MRI evidence for acute infarct.
2. � Mild diffuse cerebral and cerebellar volume loss.
Subjective Data
-
Date of Service:
Date of Service: October 14, 2023
Subjective:
Patient feels much improved. Less lightheadedness. Denies palpitations. Denies shortness of breath. Status post cardioversion. Denies chest pain, cough. Appears to be in good spirits
Objective Data
Data Reviewed
Vital Signs / I&O / Oxygen:
Vital Signs
Temp Pulse Resp BP Pulse Ox
97.8 F 49 9 101/54 99
10/14/23 03:53 10/14/23 06:00 10/14/23 06:00 10/14/23 06:00 10/14/23 06:00
Intake and Output
10/13/23 10/14/23 10/15/23
06:59 06:59 06:59
Intake Total 240 / 240 480 / 480
Output Total 250 / 250
Balance 240 / 240 230 / 230
SaO2 99
Nasal Cannula flow liters per 2
minute
Physical Exam
General: Comfortable
HEENT: Normocephalic, Anicteric and Moist Mucous Membranes
Cardiovascular: S1-S2, Regular Rhythm, Murmur (n), Rub (n) and Peripheral Edema (n)
Respiratory: Wheeze (n), Crackles (n), Rhonchi (n) and Non-Labored Respirations
GI: Soft, Non Distended and Non Tender
Neurology: Awake, Alert and No Motor Deficits (Able to sit up without assistance)
Skin: Cyanosis (n), Jaundice (n) and Rash (n)
Labs/Micro/Reports
Lab Data
10/14/23 04:46
10/14/23 04:46
--- NOTE | 2023-10-14 08:29 | W.PN.HOSP.TC ---
Addendum entered and electronically signed by Geovany Weems MD 10/25/23 17:24:
Acute CHF with preserved EF while in Afib.
Original Note:
Today's Communication/Plan
-
cards adjusting meds
wean O2 to off
transfer to tele
PT/OT/ check orthostasis
Assessment / Plan
Assessment / Plan
pt is a 68 year old female
N/V/constipation--bowels moving--son to bring in Movantik, spoke with patient about needing decreased dose due to cardiac meds--troponin neg, nausea not likely anginal equivalent--cont colace/senna
symptomatic orthostasis--ongoing--perhaps better post EFREN/CV?--although agree may be difficult to keep in SR with mitral regurg--wean O2 to off
new onset afib-- cardizem drip transitioned to oral, IV heparin transitioned to Eliquis--apprec cards--echo with severe dilatated left atrium and mitral stenosis, could be cause of all issues-TSH WNL--successful cardioversion, remains in sinus
Acute Right MCA infarct ruled out as MRI negative, possible TIA per neuro--prior symptoms Slurred speech, right eye visual deficit--symptoms resolved--apprec neuro--PT/OT/speech--neuro checks--lipid profile (T Chol 146, LDL 55, VLDL 37, HDL 54,
triglycerides 189)--cont statin therapy
Chronic abdominal pain secondary to adhesions on chronic opiates---Morphine 300 mg every 12 hours, 30 mg every 8 hours as needed breakthrough pain as baseline meds--decrease to 200 mg and add bowel regimen--bowels moving
Opiate induced constipation--Continue Movantik (at lower than usual dosing due to cardizem)
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
Rheumatoid arthritis--Methotrexate 20 mg on Saturdays
Essential HTN--Continue amlodipine 5 mg daily with hold parameters--Metoprolol succinate 25 mg twice daily will hold while on Cardizem
HLD--Lipid profile-T Chol 146, LDL 55, VLDL 37, HDL 54, triglycerides 189--Continue atorvastatin 20 mg daily
GERD--Continue Pepcid 40 mg every afternoon, omeprazole
Trigeminal neuralgia hx
hx of renal and biliary stents--renal artery stent for renal artery stenosis--unclear why biliary stent
migraines--maxalt as needed
code status --Full code
Anticipated Discharge: Within 24 hours
Subjective/Interval History
-
Date of Service: October 14, 2023
pt BP running a bit soft and HR running a bit low
Objective Data
-
Labs:
Laboratory Results
10/14/23
04:46
WBC 5.6
Hgb 11.4 L
Hct 33.6 L
Plt Count 142
Sodium 135
Potassium 3.9
Chloride 102
Carbon Dioxide 24
BUN 22 H
Creatinine 0.8
Glucose 99
Calcium 8.5
Vital Signs:
max temp for 24 hours
10/13/23
19:25
Temp 97.9 F
Vital Signs
Temp Pulse Resp BP Pulse Ox
97.8 F 49 9 101/54 99
10/14/23 03:53 10/14/23 06:00 10/14/23 06:00 10/14/23 06:00 10/14/23 06:00
I&O
10/13/23 10/14/23 10/15/23
06:59 06:59 06:59
Intake Total 240 / 240 480 / 480
Output Total 250 / 250
Balance 240 / 240 230 / 230
Review of Systems
-
All other systems: Reviewed and negative
Physical Exam
-
General: Well Developed, Well Nourished and No Apparent Distress
HEENT: Normocephalic, Atraumatic and Oxygen
Respiratory: Clear to Auscultation; Negative Wheezes or Rhonchi
Cardiac: Regular Rhythm and S1/S2; Negative Murmur
GI: Soft, Nontender, Nondistended and Normal Bowel Sounds
Musculoskeletal: No Clubbing, No Cyanosis and No Edema
[2023-10-14] MEDS: ELIQUIS 5 MG PO ×2 (08:42→20:50)
[2023-10-14] MEDS: TYLENOL 650 MG PO ×4 (08:42→20:50)
[2023-10-14] MEDS: FOLVITE 1 MG PO (08:42)
[2023-10-14] MEDS: PROTONIX 40 MG PO (08:42)
[2023-10-14] MEDS: COLACE 100 MG PO (08:42)
[2023-10-14] MEDS: TOPROL XL 25 MG PO ×2 (08:43→20:50)
[2023-10-14] MEDS: MS CONTIN (EXTENDED RELEASE) 200 MG PO ×2 (08:43→20:50)
[2023-10-14] MEDS: LIPITOR 20 MG PO (08:43)
--- NOTE | 2023-10-14 09:12 | CM ---
Patient for possible discharge tomorrow. Patient plan is to go home with son assistance and son will be 10 min away. Patient does not want VN supports at this time. IMM completed and signed form placed on chart. CM will continue to follow for
discharge planning needs.
Plan; home with no needs anticipated at this time
--- NOTE | 2023-10-14 11:20 | PTCARENOTE ---
pt being transferred to tele room 317. mreport given gretel Diaz.
[2023-10-14] MEDS: PEPCID 40 MG PO (17:00)
--- NOTE | 2023-10-14 19:30 | PTCARENOTE ---
Patient reports that she has been having SOB when lying flat in bed. This has been happening for approx 1 week at home. Patient does have history of GERD, no other complaints. Patient would like to know why she is having these symptoms. Patient is
also requesting the use of oxygen for 'comfortability' -- satting well on room air, encouraged patient to trial the evening without oxygen for discharge planning purposes since her saturations on room air are adequate. Also encouraged patient to
speak with MD during rounding in the AM to discuss symptoms. Call robert within reach. Will monitor.
[2023-10-15] MEDS: TYLENOL PO ×2 (00:31→04:15)
[2023-10-15 03:27] VITALS: BP 99/52
[2023-10-15 07:05] VITALS: BP 110/78
[2023-10-15] MEDS: SENOKOT PO (08:46)
[2023-10-15] MEDS: COLACE 100 MG PO (08:47)
[2023-10-15] MEDS: PROTONIX 40 MG PO (08:47)
[2023-10-15] MEDS: TYLENOL 650 MG PO ×2 (08:47→12:14)
[2023-10-15] MEDS: MS CONTIN (EXTENDED RELEASE) 200 MG PO (08:47)
[2023-10-15] MEDS: ELIQUIS 5 MG PO (08:47)
[2023-10-15] MEDS: LIPITOR 20 MG PO (08:47)
[2023-10-15] MEDS: TOPROL XL 25 MG PO (08:47)
[2023-10-15 11:20] VITALS: BP 127/66
--- NOTE | 2023-10-15 11:46 | W.PN.HOSP.TC ---
Today's Communication/Plan
-
DC
Assessment / Plan
Assessment / Plan
pt is a 68 year old female
new onset afib--s/p electrical cardioversion-remains in sinus rhythm--echo with severe dilatated left atrium and mitral stenosis, ues-TSH WNL--successful cardioversion, remains in sinus continue with beta-blockers and anticoagulation.
Moderate to severe MR-clinically no signs of heart [id number]-bi with cardiology as outpatient.
possible TIA per neuro--prior symptoms Slurred speech, right eye visual deficit--symptoms resolved--apprec neuro--continue with anticoagulation for A-fib--cont statin therapy
Dizziness-resolved--perhaps better post EFREN/CV?-
Hypoxic respiratory insufficiency-suspected possibly related to pulm edema by pulmonary. Resolved. Stable on room air now. Normal EF noted.
Chronic abdominal pain secondary to adhesions on chronic opiates---Morphine 300 mg every 12 hours, 30 mg every 8 hours as needed breakthrough pain as baseline meds-continue with her pain regimen as before without changes.
Opiate induced constipation--Continue Movantik
Leukemia B-cell--Port to transfer IVIG infusions at [facility]
Rheumatoid arthritis--Methotrexate 20 mg on Saturdays
Essential HTN---Metoprolol succinate 25 mg twice daily -blood pressure uncontrolled. Do not see indication of further amlodipine.
HLD--Lipid profile-T Chol 146, LDL 55, VLDL 37, HDL 54, triglycerides 189--Continue atorvastatin 20 mg daily
GERD--Continue Pepcid 40 mg every afternoon, omeprazole
Trigeminal neuralgia hx
hx of renal and biliary stents--renal artery stent for renal artery stenosis--unclear why biliary stent
migraines--maxalt as needed
code status --Full code
Medically stable for discharge.
Discussed with patient about new diagnosis, changes in medication, and follow-up plan.
Total time of discharge 32 minutes
Anticipated Discharge: Today
Subjective/Interval History
-
Date of Service: October 15, 2023
Voices no specific complaints today.
No further dizziness.
No chest pain or palpitations. No shortness of breath. Off of oxygen. Walked well with PT today.
Objective Data
-
Vital Signs:
Vital Signs
Temp Pulse Resp BP Pulse Ox
98.6 F 56 17 110/78 97
10/15/23 07:05 10/15/23 07:05 10/15/23 07:05 10/15/23 07:05 10/15/23 09:00
I&O
10/14/23 10/15/23 10/16/23
06:59 06:59 06:59
Intake Total 480 / 480 980 / 980
Output Total 250 / 250
Balance 230 / 230 980 / 980
Review of Systems
-
Constitutional: Denies Fever or Chills
Abdomen/GI: Denies Abdominal Pain, Nausea or Vomiting
Neuro: Denies Dizzy
Physical Exam
-
General: No Apparent Distress
HEENT: Moist Mucous Membranes
Respiratory: Clear to Auscultation
Cardiac: Regular Rhythm and S1/S2; Negative Tachycardic
GI: Soft
Neuro: AO x 3
Psych: Calm; Negative Confused
--- NOTE | 2023-10-15 11:56 | W.DS.TRANS ---
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
-
Discharge Instructions:
Discharge Diagnosis/Procedures New onset atrial fibrillation-status post
cardioversion, symptomatic orthostasis, nausea
vomiting constipation, chronic abdominal pain
secondary to adhesions and chronic opioid
dependence with opioid-induced constipation,
history of B-cell leukemia, rheumatoid arthritis
, essential hypertension, hyperlipidemia,
gastroesophageal flux disease, history of
trigeminal neuralgia, history of renal and
biliary stents, migraine
Diet Low Cholesterol
Activity As tolerated
Driving Restrictions As prior to admission
Bathing Restrictions None
Other Services VN
Specialty Instructions Weigh Daily
Instructions:
Stand-Alone Forms:
Changes to Home Medications: Yes
Discharge Medications:
DC Medications w/original date entered in [employer]
ascorbic acid (vitamin C) 1,000 mg tablet (Vitamin C) 1,000 mg PO HS Supplement 10/10/23
atorvastatin 20 mg tablet 20 mg PO DAILY High Cholesterol 10/10/23
cyanocobalamin (vitamin B-12) 1 tab PO HS Supplement 10/10/23
docusate sodium 100 mg capsule (Stool Softener) 100 mg PO DAILY Constipation 10/10/23
famotidine 40 mg tablet 40 mg PO QPM Gastrointestinal Issue 10/10/23
folic acid 1 mg tablet 1 mg PO SUMOTUWETHFR@0800 Supplement 10/10/23
icosapent ethyl 1 gram capsule (Vascepa) 2 g PO BID High Cholesterol 10/10/23
methotrexate sodium 2.5 mg tablet 20 mg PO SA@0800 Autoimmune Disorder 10/10/23
metoprolol succinate 25 mg tablet,extended release 24 hr 25 mg PO BID Heart Disease/Condition 10/10/23
morphine 100 mg tablet,extended release 100 mg PO Q12H Pain 10/10/23
morphine 200 mg tablet,extended release 200 mg PO Q12H Pain 10/10/23
morphine 30 mg immediate release tablet 30 mg PO Q8H PRN breakthrough pain 10/10/23
naloxegol 25 mg tablet (Movantik) 25 mg PO DAILY Constipation 10/10/23
omeprazole 40 mg capsule,delayed release 40 mg PO DAILY Gastrointestinal Issue 10/10/23
prochlorperazine 25 mg rectal suppository (Compro) 25 mg ME BID PRN nausea 10/10/23
vitamin A 1 tab PO HS Supplement 10/10/23
vitamin E 1 tab PO HS Supplement 10/10/23
apixaban 5 mg tablet (Eliquis) 5 mg PO BID #60 tabs 10/15/23
sennosides 8.6 mg tablet (Senna Lax) 17.2 mg PO BID #60 tabs 10/15/23
Home Medication Changes
New medication-Eliquis, senna
Discontinue medication-amlodipine
Pending Results: No
--- NOTE | 2023-10-15 12:10 | CM ---
Chart reviewed.
Pt for d/c today
Pt reports she has a ride home with her son
IMM in chart
Cont to decline VN
Plan home no needs
--- NOTE | 2023-10-15 15:47 | W.DCSUMMARY ---
Discharge Summary
Discharge Data
Date of Admission: 10/10/23
Date of Discharge: 10/15/23
-
Pending Results: No
Hospital Course
Primary diagnosis:
New onset of atrial fibrillation status post electrical cardioversion to sinus rhythm
Possible transient ischemic attack
Secondary diagnosis:
Chronic abdominal pain on chronic narcotic regimen at home
Opiate induced constipation
History of leukemia B-cell
Rheumatoid arthritis
Essential hypertension
Hyperlipidemia
Gastroesophageal reflux disease
Trigeminal neuralgia
Hospital course:
68-year-old lady was out for a walk and walked a mile and upon returning home she had a sudden onset of bright lights to her right eye along with the difficulty with the speech and ambulation. She called her son but apparently unable to speak so
called 911 and presented to the hospital. Showed significant improvement upon arrival in ED. Initially in the field she had significant expressive aphasia apparently. And she was noted to be new rapid A-fib. She had CT head without contrast and
an MRI of the brain which were unremarkable. It was felt this was possibly a TIA secondary to new onset of atrial fibrillation and was okay to start anticoagulation.
She had successful electrical cardioversion for her A-fib. She remained in sinus rhythm till discharge. Her echocardiogram showed severe dilatated left atrium and severe mitral regurgitation . She was seen by cardiology. Advised to continue
beta-mejia and anticoagulation with Eliquis. She transient hypoxic respiratory insufficiency for which she was seen by pulmonary who felt may be pulmonary edema and it resolved. She was on room air comfortable. Her EF was normal.
With regards to her antihypertensives after cardioversion she was stable with just beta-mejia and did not need her Norvasc. She was maintained on her chronic narcotic regimen without any changes on discharge.
Consultants on board:
Cardiology-Dr. Bermudez
Pulmonary-Dr. Mackenzie
Discharge Plan
-
Patient Disposition: Home with Home Care
Discharge Diagnosis/Procedures: New onset atrial fibrillation-status post cardioversion, symptomatic orthostasis, nausea vomiting constipation, chronic abdominal pain secondary to adhesions and chronic opioid dependence with opioid-induced
constipation, history of B-cell leukemia, rheumatoid arthritis, essential hypertension, hyperlipidemia, gastroesophageal flux disease, history of trigeminal neuralgia, history of renal and biliary stents, migraine
Condition: Good
Diet: Low Cholesterol
Activity: As tolerated
Driving Restrictions: As prior to admission
Bathing Restrictions: None
Other Services: VN
Specialty Instructions: Weigh Daily- Call MD for wt gain/loss 3 lbs overnight/5 lbs in 1 week
Referrals:
Srinivasa Hansen MD [Active] - in one to two months (Will need full PFTs on day of office visit.)
Nela Ravi CRNP [Specified Professional Personl] - 10/26/23 3:00 pm
Maliha Hall MD [Family Provider] - in less than 1 week
Prescriptions:
New
Eliquis 5 mg Tablet
5 mg PO BID Qty: 60 0RF
sennosides [Senna Lax] 8.6 mg Tablet
17.2 mg PO BID Qty: 60 0RF
Continued
ascorbic acid (vitamin C) [Vitamin C] 1,000 mg Tablet
1,000 mg PO HS
atorvastatin 20 mg Tablet
20 mg PO DAILY
famotidine 40 mg Tablet
40 mg PO QPM
omeprazole 40 mg Capsule,Delayed Release(Dr/Ec)
40 mg PO DAILY
methotrexate sodium 2.5 mg Tablet
20 mg PO SA@0800
morphine 100 mg Tablet Extended Release
100 mg PO Q12H
Patient Comments:
10/10/2023, pt. filled this med. on 09/25/2023 for 60 tablets according to PDMP.
Rx Instructions:
10/10/2023, take with 200 mg for a total of 300 mg.
morphine 200 mg Tablet Extended Release
200 mg PO Q12H
Patient Comments:
10/10/2023, pt. filled this med. on 09/25/2023 for 60 tablets according to PDMP.
Rx Instructions:
10/10/2023, take with 100 mg for a total of 300 mg.
prochlorperazine [Compro] 25 mg Suppository
25 mg ID BID PRN (Reason: nausea)
docusate sodium [Stool Softener] 100 mg Capsule
100 mg PO DAILY
folic acid 1 mg Tablet
1 mg PO SUMOTUWETHFR@0800
metoprolol succinate 25 mg Tablet Extended Release 24 Hr
25 mg PO BID
icosapent ethyl [Vascepa] 1 gram Capsule
2 g PO BID
Movantik 25 mg Tablet
25 mg PO DAILY
cyanocobalamin (vitamin B-12)
1 tab PO HS
vitamin A
1 tab PO HS
vitamin E
1 tab PO HS
morphine 30 mg Tablet
30 mg PO Q8H PRN (Reason: breakthrough pain)
Patient Comments:
10/10/2023, pt. filled this med. on 09/19/2023 for 50 tablets according to PDMP.
Discontinued
amlodipine 5 mg Tablet
5 mg PO DAILY
Discharge Orders:
Discharge Patient (As Directed); Ordered 10/15/23
Ordered By: Geovany Weems
Discharge Date and Time
Discharge Date/Time: 10/15/23 14:12
--- NOTE | 2023-10-19 10:51 | PN.CDI ---
CDI
- -
CDI:
Physician Documentation Request
Admit Date: 10/10/23 14:33
Dear Doctor Dank,
10/14 cardiology note includes a diagnosis of Acute HFpEF - recommend lasix 20 mg daily prn.
10/15 Hospitalist note states '...-clinically no signs of heart failure...'
10/12 cxr findings include 'There is some mild vascular congestion, no clear edematous changes'
10/14 proBNP 2049
Lasix IV given x 1 on 10/12
Per the discharge summary no Lasix prescribed
In an attempt to clarify potentially conflicting documentation please clarify::
____ - acute HFpEF is a valid diagnosis
____ - acute HFpEF is not a valid diagnosis for this patient
____ - Other
Use of terms such as suspected, likely, concern for, or probable are acceptable for a diagnosis that is being evaluated, monitored or treated as if it exists and can be coded in the inpatient setting, when documented at the time of discharge.
Thank you,
Anne Terrell RN, BSN
CDI Specialist
tiger text
Please use your independent medical judgment in providing your response.
== END 2023-10-15 14:12 | disposition home or self-care (01) | DRG 308 ==
LOC: 3 WEST ACU 14:33
PROVIDERS: Clinical Nurse Specialist Family Health; Internal Medicine Cardiovascular Disease; ADMITTING PHYSICIAN Internal Medicine; ATTENDING PHYSICIAN Internal Medicine; CONSULT PHYSICIAN Internal Medicine; CONSULT PHYSICIAN Student in an Organized Health Care Education/Training Program; EMERGENCY PHYSICIAN Student in an Organized Health Care Education/Training Program; FAMILY PHYSICIAN Family Medicine; OTHER PHYSICIAN Internal Medicine Critical Care Medicine
PROC: B24BZZ4 Ultrasonography of Heart with Aorta, Transesophageal (ICD-10-PCS; 2023-10-13)
PROC: 5A2204Z Restoration of Cardiac Rhythm, Single (ICD-10-PCS; 2023-10-13)
DX: I48.91 Unspecified atrial fibrillation (principal); I50.31 Acute diastolic (congestive) heart failure; C91.00 Acute lymphoblastic leukemia not having achieved remission; G45.9 Transient cerebral ischemic attack, unspecified; K56.50 Intestinal adhesions [bands], unspecified as to partial versus complete obstruction; J90 Pleural effusion, not elsewhere classified; R47.01 Aphasia; R53.1 Weakness; E78.00 Pure hypercholesterolemia, unspecified; I11.0 Hypertensive heart disease with heart failure; M06.9 Rheumatoid arthritis, unspecified; G50.0 Trigeminal neuralgia; I08.1 Rheumatic disorders of both mitral and tricuspid valves; K21.9 Gastro-esophageal reflux disease without esophagitis; R26.2 Difficulty in walking, not elsewhere classified; E78.1 Pure hyperglyceridemia; R47.1 Dysarthria and anarthria; K59.03 Drug induced constipation; R47.81 Slurred speech; R06.89 Other abnormalities of breathing; R09.02 Hypoxemia; T40.605A Adverse effect of unspecified narcotics, initial encounter; G89.29 Other chronic pain; H54.7 Unspecified visual loss; Z79.631 Long term (current) use of antimetabolite agent; Z88.5 Allergy status to narcotic agent; Z91.041 Radiographic dye allergy status; Z99.81 Dependence on supplemental oxygen; Z79.01 Long term (current) use of anticoagulants; Z86.73 Personal history of transient ischemic attack (TIA), and cerebral infarction without residual deficits
CPT/HCPCS: 70450; 70544; 70551; 71046; 80048; 80053; 80061; 82607; 82728; 82746; 82962; 83036; 83735; 83880; 84100; 84443; 84484; 85025; 85027; 85610; 85730; 86803; 92960; 93005; 93306; 93312; 93320; 93325; 93880; 96374; 96375; 97116; 97163; 97166; 99291

== ENCOUNTER 2023-11-16 08:29 | Day surgery (SDC) | payer MEDICARE, SELFPAY ==
[2023-11-16] VITALS (11 sets, daily range): BP systolic 96–143; BP diastolic 64–87; BMI 28.0
[2023-11-16 11:07] LABS: ACT-LR - POC 385 Seconds (116-155)
--- NOTE | 2023-11-16 11:23 | ITS.CL.CATH ---
Manager Nursing - Catheterization
Cardiac Catheterization
Procedure Report:
CARDIAC CATHETERIZATION REPORT
Date of Procedure: 11/16/2023
Referring: Alpesh Bermudze M.D., Ph.D.
Indication: Severe mitral valve regurgitation, NYHA class IIIa heart failure with preserved ejection fraction, difficult to control atrial fibrillation.
PROCEDURE:
1. Right heart catheterization.
2. Left heart catheterization.
3. Coronary angiography.
4. Successful IFR of the proximal LAD.
ACCESS:
6 [place]ar[place] right radial artery.
5 [place]uan right antecubital vein.
CATHETERS:
1. 5 [place]araguan balloon.
2. 5 [place]araguan JL 3.5.
HEMODYNAMIC DATA
Weight (kg): 76.2
AO (s/d/x mmHg): 116/78/94
LV (s/x mmHg): 120/14
PCWP (a/v/x mmHg): /
PA (s/d/x mmHg):
RV (s/x mmHg): 37/10
RA (a/v/x mmHg): 06/23/10
SVC SvO2 (%): 66.1
PA SvO2 (%): 69.7
SaO2 (%): 94.6
Hbg (g/dL): 14.3
CO (L/min): 3.67
CI (L/min/m2): 2.00
TPG (mmHg): 13
PVR (Oropeza Units): 3.54
SVR (dynes*seconds*cm^-5): 1831
AVO2 Diff (Volume %): 4.84
AV gradient (x, mmHg): None.
AV area (cm2): Normal.
LEFT VENTRICULOGRAPHY: Not performed.
CORONARY ANGIOGRAPHY
Dominance: Right.
Left Main: Short, bifurcating vessel. There is no coronary artery disease.
LAD: Normal size vessel giving rise to 2 small diagonals. The mid vessel is severely tortuous. There is a long, 40% lesion in the proximal vessel. There is a more discrete, 40% lesion in the mid vessel, spanning the origin of the second
diagonal.
Ramus: Congenitally absent.
Circumflex: Large size, nondominant vessel that is essentially a single large marginal which bifurcates into 2 daughter branches. Both daughter branches are severely tortuous. There is no coronary artery disease.
RCA: Large size, dominant vessel with an upwards angulated origin requiring the JL 3.5 catheter for cannulation. There is a discrete, 20% lesion in the mid vessel.
INTERVENTIONS
1. Successful IFR of the tandem 40% LAD lesions, demonstrating nonocclusive disease (IFR = 0.92).
Narrative:
The decision was made to perform physiologic testing. The diagnostic catheter was removed over a wire and exchanged for a(n) 6 Nicaraguan EBU 3.5 guiding catheter. The guiding catheter was advanced into the ascending aorta and seated in the left main
coronary artery. Additional heparin was given to obtain an ACT greater than 250 seconds. An iFR wire was zeroed outside of the body, then inserted into the guiding sheath. The wire was advanced and the transducer was normalized just outside of the
guiding catheter tip in the left circumflex artery as the left main was very short, causing subselective engagement of the guide. Unfortunately, we could not disengaged the guide and readvanced into the LAD without some support. A BMW wire was
advanced into the left circumflex, thus allowing the catheter to be pulled back and the IFR wire to be redirected into the LAD. After confirming and renormalizing, the wire was advanced into the mid LAD, beyond both lesions. Three iFR measurements
were taken. The lesion was determined to be nonocclusive (0.92).
Closure Device: Vascular band for the right radial artery, manual pressure for the right antecubital vein.
Radiation dose (mGy): 478.34
DAP (cm2.Gy): 45.6061
Fluoroscopy time (minutes): 11.4
Sedation time (minutes): 30
CONCLUSIONS:
1. Right dominant circulation with a significant upward angle of the RCA ostium requiring the Esequiel left catheter for cannulation, a 20% lesion in the mid RCA, and tandem, nonocclusive 40% lesions in the proximal and mid LAD (IFR = 0.92).
2. Mildly elevated filling pressures (LVEDP = 14 mmHg, PCWP = 15 mmHg at 76.2 kg).
3. Mild pulmonary hypertension with mildly elevated PVR (3.54 Oropeza units).
4. Severe mitral valve regurgitation on transesophageal echocardiogram.
5. Difficult to control atrial fibrillation.
6. History of B-cell lymphoma and rheumatoid arthritis with indwelling port and on chronic IVIG.
RECOMMENDATIONS:
1. Expectant management after cardiac catheterization via right radial/approach.
2. Limited weight bearing on the right wrist for one week.
3. Increase atorvastatin to 40 mg for primary prevention of acute coronary syndrome.
4. Initiate workup for STEFF (MitraClip).
Copy to: Alpesh Bermudez M.D., Ph.D., Maliha Hall M.D.
Ross Perez DO, FACC, FACP
--- NOTE | 2023-11-16 15:11 | PTCARENOTE ---
iv team came to remove iv access from port a cath without difficulty
== END 2023-11-16 16:00 | disposition home or self-care (01) ==
LOC: CATH 08:29
PROVIDERS: ATTENDING PHYSICIAN Internal Medicine Cardiovascular Disease; FAMILY PHYSICIAN Family Medicine; OTHER PHYSICIAN Internal Medicine
DX: I25.10 Atherosclerotic heart disease of native coronary artery without angina pectoris (principal); I50.30 Unspecified diastolic (congestive) heart failure; I48.91 Unspecified atrial fibrillation; I34.0 Nonrheumatic mitral (valve) insufficiency; I27.20 Pulmonary hypertension, unspecified; Z85.72 Personal history of non-Hodgkin lymphomas; M06.9 Rheumatoid arthritis, unspecified
CPT/HCPCS: 93460; 93571; C1769; C1894; Q9967

== ENCOUNTER → 2023-12-23 10:49 | Outpatient (REF) | payer MEDICARE, SELFPAY | LOC: RAD 10:49 | PROVIDERS: ATTENDING PHYSICIAN Thoracic Surgery (Cardiothoracic Vascular Surgery); FAMILY PHYSICIAN Family Medicine | DX: I48.0 Paroxysmal atrial fibrillation (principal); I34.0 Nonrheumatic mitral (valve) insufficiency; Z01.818 Encounter for other preprocedural examination | CPT/HCPCS: 71275; 74174; Q9967 ==

== ENCOUNTER 2024-01-02 04:57 | Inpatient (IN) | payer MEDICARE, SELFPAY ==
[2023-12-19 12:23] VITALS: BMI 29.3
[2023-12-19 13:45] LABS: Urine Albumin Negative (Neg - Trace); Urine Bilirubin Negative (Negative); Urine Character Clear (Clear); Urine Color Yellow; Urine Glucose Negative (Negative); Urine Ketone Negative (Negative); Urine Leukocyte Trace (Negative); Urine Nitrite Negative (Negative); Urine Occult Blood Negative (Negative); Urine Urobilinogen Negative (Neg - 1+)
[2023-12-19 13:53] LABS: % Basophils 0.7 % (0-2); % Eosinophils 1.1 % (0-6); % Immature Granulocytes 0.3 % (0-0.5); % Lymphocytes 9.7 % (20.5-51.1); % Monocytes 4.3 % (1.7-9.3); % Neutrophils 83.9 % (42.2-75.2); Absolute Basophils 0.1 10^3/uL (0-0.2); Absolute Eosinophils 0.1 10^3/uL (0-0.7); Absolute Lymphocytes 0.9 10^3/uL (1.2-3.4); Absolute Monocytes 0.4 10^3/uL (0.1-0.6); Absolute Neutrophils 7.6 10^3/uL (1.4-6.5); Hematocrit 42.1 % (37.0-47.0); Hemoglobin 14.1 g/dL (12.0-16.0); Mean Corp Hgb Conc. 33.5 g/dL (33.0-37.0); Mean Corpuscular Hgb 31.3 pg (27.0-31.0); Mean Corpuscular Volume 93.6 fL (81.0-99.0); Mean Platelet Volume 10.5 fL (7.4-10.4); Nucleated Red Blood Cells % 0 %; Platelet Count 173 10^3/uL (130-400); Red Cell Dist. Width 15.8 % (11.5-14.5); White Blood Cell Count 9.1 10^3/uL (4.8-10.8)
[2023-12-19 14:00] LABS: ALT (SGPT) 37 U/L (0-35); AST (SGOT) 43 U/L (14-36); Albumin 4.2 g/dl (3.5-5.0); Alkaline Phosphatase 103 U/L (38-126); Blood Urea Nitrogen 23 mg/dl (7-17); Carbon Dioxide 22 mmol/L (22-30); Chloride 102 mmol/L (98-107); Direct Bilirubin 0.4 mg/dl (0.0-0.4); Estimated Creatinine Clearance 59 ml/min; Glucose 106 mg/dl (70-99); Sodium 133 mmol/L (135-145); Total Bilirubin 0.5 mg/dl (0.2-1.3); Total Protein 6.8 g/dl (6.3-8.2); eGFR > 60.00
[2023-12-19 14:03] LABS: INR 1.36; PT 16.6 Sec (11.4-14.6)
[2023-12-19 14:05] LABS: Potassium 4.3 mmol/L (3.5-5.1)
[2023-12-19 14:06] LABS: APTT 140.6 Sec (23.4-35.0)
--- NOTE | 2023-12-19 14:11 | CM ---
Chart reviewed. Met with the patient in PAT. Patient is independent of ADLS, lives alone in a apartment, 2nd floor, 14 YULI, 0 DME. Patient with a supportive son who lives close by. Reviewed preoperative and postoperative instructions and
restrictions, along with showering guidelines. Gave patient 2 soaps. Patient is agreeable to a home visit by CT Transitional RN. Plan is for the patient to return home with CT Transitional RN. CM to follow
[2023-12-19 14:40] LABS: Urine Amorphous Seen; Urine Mucus Few; Urine Red Blood Cell 0-2 /HPF (0-2); Urine Squamous Cell 0-2 /LPF (Few)
[2023-12-19 14:54] LABS: Glycohemoglobin (HgbA1c) 5.3 % (4.0-5.6)
[2024-01-02] VITALS (11 sets, daily range): BP systolic 96–127; BP diastolic 71–89; BMI 29.3; BMI 28.9
[2024-01-02] MEDS: BACTROBAN 2% OINTMENT 1 APPLIC NASAL ×2 (04:58→19:52)
[2024-01-02] MEDS: PROTONIX 40 MG PO (04:58)
[2024-01-02] MEDS: MAGNESIUM OXIDE 500 MG PO (04:58)
[2024-01-02] MEDS: LOPRESSOR 25 MG PO (04:59)
--- NOTE | 2024-01-02 06:22 | W.CVOR.SURPR ---
CVOR Surgeon Immed Pre Op
-
I have examined this patient prior to performance of the scheduled procedure.
The patient's condition is unchanged from the time of the dictated/written History and
Physical and the patient is able to undergo the scheduled procedure.
MV Repair / Replacement, DEYSI RAMESH, +/- TV Repair
--- NOTE | 2024-01-02 07:04 | PTCARENOTE ---
received patient for SDA, reviewed all meds, admission done. clipped prepped. confirmed two showers. son went home and would like to b e called post surgery. Dr Carmona bedside to gain consent. all questions answered. taken to CVOR in bed.
[2024-01-02 07:25] LABS: ACT+ - POC 90 Seconds (82-134)
[2024-01-02 07:31] LABS: B.E. - POC -3.4 mmol/L; Glucose - POC 90 mg/dl (65-99); HCO3 - POC 22 mmol/L (21-29); Hematocrit - POC 39 % PCV (37-47); Hemodilution- POC Yes; Hemoglobin Calculated - POC 13.2; Ionized Calcium - POC 1.19 mmol/L (1.12-1.27); PCO2 - POC 42 mmHg (35-45); PO2 - POC 446 mmHg (80-100); Potassium - POC 3.9 mmol/L (3.6-5.0); Sodium - POC 142 mmol/L (135-145); pH - POC 7.34 (7.35-7.45)
[2024-01-02 07:43] LABS: Urine Albumin Negative (Neg - Trace); Urine Bilirubin Negative (Negative); Urine Character Clear (Clear); Urine Color Yellow; Urine Glucose Negative (Negative); Urine Ketone Negative (Negative); Urine Leukocyte Negative (Negative); Urine Nitrite Negative (Negative); Urine Occult Blood Negative (Negative); Urine Specific Gravity 1.015 (<1.030); Urine Urobilinogen Negative (Neg - 1+)
--- NOTE | 2024-01-02 08:11 | CM ---
Reviewed chart. Mrs. Clancy is in the operating room today. Prior to admission she resides in a second floor apartment with fourteen steps to enter. Prior to admission she was independent with adls. She has a supportive son who resides nearby.
Medical work-up in progress. The discharge plan is undetermined at this time.
[2024-01-02 08:39] LABS: ACT+ - POC 780 Seconds (82-134)
[2024-01-02 09:07] LABS: B.E. - POC 2.3 mmol/L; Glucose - POC 114 mg/dl (65-99); HCO3 - POC 25 mmol/L (21-29); Hematocrit - POC 23 % PCV (37-47); Hemodilution- POC Yes; PCO2 - POC 29 mmHg (35-45); PO2 - POC 465 mmHg (80-100); Potassium - POC 5.5 mmol/L (3.6-5.0); Sodium - POC 137 mmol/L (135-145); pH - POC 7.53 (7.35-7.45)
[2024-01-02 09:39] LABS: B.E. - POC 0.3 mmol/L; Glucose - POC 145 mg/dl (65-99); HCO3 - POC 25 mmol/L (21-29); Hematocrit - POC 27 % PCV (37-47); Hemodilution- POC Yes; Hemoglobin Calculated - POC 9.3; Ionized Calcium - POC 0.96 mmol/L (1.12-1.27); O2 Saturation %Calculated-POC 99.9 5 (92-96); PCO2 - POC 37 mmHg (35-45); PO2 - POC 323 mmHg (80-100); Potassium - POC 5.3 mmol/L (3.6-5.0); Sodium - POC 137 mmol/L (135-145); pH - POC 7.43 (7.35-7.45)
[2024-01-02 10:03] LABS: B.E. - POC -0.7 mmol/L; Glucose - POC 157 mg/dl (65-99); HCO3 - POC 24 mmol/L (21-29); Hematocrit - POC 28 % PCV (37-47); Hemodilution- POC Yes; Hemoglobin Calculated - POC 9.7; Ionized Calcium - POC 0.98 mmol/L (1.12-1.27); O2 Saturation %Calculated-POC 99.9 5 (92-96); PCO2 - POC 37 mmHg (35-45); PO2 - POC 282 mmHg (80-100); Potassium - POC 5.4 mmol/L (3.6-5.0); Sodium - POC 139 mmol/L (135-145); pH - POC 7.42 (7.35-7.45)
[2024-01-02 10:05] LABS: ACT+ - POC > 1003 Seconds (82-134)
[2024-01-02 10:05] LABS: ACT+ - POC > 1003 Seconds (82-134)
[2024-01-02 10:14] LABS: ACT+ - POC 813 Seconds (82-134)
[2024-01-02 10:16] LABS: B.E. - POC -3.3 mmol/L; Glucose - POC 166 mg/dl (65-99); HCO3 - POC 22 mmol/L (21-29); Hematocrit - POC 29 % PCV (37-47); Hemodilution- POC Yes; Hemoglobin Calculated - POC 9.8; Ionized Calcium - POC 1.32 mmol/L (1.12-1.27); PCO2 - POC 39 mmHg (35-45); PO2 - POC 508 mmHg (80-100); Potassium - POC 5.4 mmol/L (3.6-5.0); Sodium - POC 141 mmol/L (135-145); pH - POC 7.36 (7.35-7.45)
[2024-01-02 10:37] LABS: ACT+ - POC 96 Seconds (82-134)
[2024-01-02 10:41] LABS: B.E. - POC -1.8 mmol/L; Glucose - POC 124 mg/dl (65-99); HCO3 - POC 24 mmol/L (21-29); Hematocrit - POC 27 % PCV (37-47); Hemodilution- POC Yes; Hemoglobin Calculated - POC 9.3; Ionized Calcium - POC 1.29 mmol/L (1.12-1.27); O2 Saturation %Calculated-POC 99.9 5 (92-96); PCO2 - POC 45 mmHg (35-45); PO2 - POC 311 mmHg (80-100); Potassium - POC 3.9 mmol/L (3.6-5.0); Sodium - POC 145 mmol/L (135-145); pH - POC 7.34 (7.35-7.45)
--- NOTE | 2024-01-02 11:13 | W.PN.CD ---
Addendum entered and electronically signed by Salina Mccollum MD 01/02/24 16:23:
I saw and examined the patient.
The MANAGER ADULT's note was reviewed and I agree with the note.
Comment: She was just extubated. Opens eyes to name but otherwise lethargic. Hemodynamics are stable. Incision clean dry and intact. Rhythm is now sinus. Will continue to monitor postoperatively. Continue current care plan.
Original Note:
Today's Communication / Plan
-
Follow telemetry
Impression / Plan
-
BACKGROUND: 68F with moderate-severe mitral regurgitation, chronic HFpEF, persistent atrial fibrillation (on Eliquis), TIA, hypertension, non-obstructive CAD, B cell lymphoma (prior IVIG), & renal artery stenosis s/p right stent presents for MV
repair with MAZE
Agricultural Service Technician: Dr. Bermudez
Severe mitral regurgitation S/P mitral valve repair [28 mm ring annuloplasty] by Dr. Carmona 01/02/2024
-EKG with junctional rhythm, EKG in am
-Post EF 60% (unchanged) without RWMA, mean gradient 3mmHg
-Low dose dobutamine
-Follow telemetry
Persistent atrial fibrillation S/P Biatrial maze [combination of RF ablation and cryo] & DEYSI Clip 40mm
-Sinus vivienne
-She did not tolerate amiodarone
-Oral Anticoagulation: Apixaban 5mg BID, resumption timing per CTS
-[id number]: score 6 (Heart failure, prior Stroke/TIA, Vascular disease, age 65-74, female gender)
HFpEF, chronic
-RHC 11/2023: LVEDP = 14 mmHg, PCWP = 15 mmHg at 76.2 kg
-Follow volume status
CAD, non obstructive by [facility] 11/2023, on single agent (Eliquis)
PFO, small
Hypertriglyceridemia, on Vascepa
Prior TIA
B cell lymphoma, on IVIG Q4 weeks (managed at [facility], Dr. Liberty)
RA, on MTX (held pre op)
Subjective:
Intubated and sedated
Physical Exam
Vital Signs/Labs
Vital Signs
Temp Pulse Resp Pulse Ox
97.4 F 91 18 98
01/02/24 05:23 01/02/24 05:23 01/02/24 05:23 01/02/24 05:23
01/01/24 01/02/24 01/03/24
06:59 06:59 06:59
Actual Weight 76.3 kg
PT 16.6 Sec (11.4-14.6) H 12/19/23 13:22
INR 1.36 12/19/23 13:22
APTT 140.6 Sec (23.4-35.0) H 12/19/23 13:22
Physical Exam
Constitutional: No acute distress and Comfortable
EENT: Anicteric and Moist mucous membranes
Cardiovascular: Rhythm & rate is regular (junctional), Pedal edema is absent, S1S2 is normal and Murmur/rub/gallop absent
Respiratory: Lungs clear to auscul. and Other (ETT to mechanical ventilation)
GI: Soft, Distention absent, Flat, Non tender and Normal bowel sounds
Neuro/Psych: Other (sedated)
Other: Skin (warm and dry)
Data Reviewed
-
Date of Service: January 02, 2024
EKG: Report Reviewed by me
Echo: Report Reviewed by me
Labs: Labs Reviewed by me
Old Records: Reviewed
--- NOTE | 2024-01-02 11:17 | W.PN.CT.SURG ---
Addendum entered and electronically signed by Mendoza Carmona MD 01/02/24 16:50:
CORRECTION:
Procedure(s) Performed:
1. Standard sternotomy with aortic and bicaval cannulation
2. Mitral valve repair [28 mm ring annuloplasty]
3. Biatrial maze [combination of RF ablation and cryo]
4. Left atrial appendage exclusion with a 40 mm clip
5. Placement of temporary atrial ventricular pacing wires
6. Transesophageal echocardiography
7. ASD/PFO Closure
Addendum entered and electronically signed by Mendoza Carmona MD 01/02/24 13:10:
CORRECTION:
Implant 2. is a 40mm DEYSI Clip, NOT 35mm
Original Note:
CT Surgery Operative Note
-
CARDIAC SURGERY OPERATIVE REPORT
Preoperative Diagnosis: Atrial functional mitral valve severe insufficiency with persistent atrial fibrillation
Postoperative Diagnosis: Same
Procedure(s) Performed:
1. Standard sternotomy with aortic and bicaval cannulation
2. Mitral valve repair [28 mm ring annuloplasty]
3. Biatrial maze [combination of RF ablation and cryo]
4. Left atrial appendage exclusion with a 40 mm clip
5. Placement of temporary atrial ventricular pacing wires
6. Transesophageal echocardiography
Date of Surgery: 01/02/2024
Comorbidities:
1. Persistent atrial fibrillation with history of TIA/stroke
2. Severe mitral valve insufficiency, type I pathophysiology [atrial functional MR], symptomatic
3. B-cell leukemia status postchemotherapy
4. Thrombocytopenia status post IVIG infusions
5. Rheumatoid arthritis
6. Trigeminal neuralgia
7. Acid reflux
8. Osteopenia
Attending Surgeon: Mendoza Carmona MD, MS
Assistants: Ramon Wynn PA-C (present and necessary to surgical first assistant, retraction, suction, exposure, suture management, and wound closure under my direction)
Anesthesiology: Shahab To MD and Qi Schrader CRNA
Scrub and Circulating RNs: Genna Nina RN, Kera Vera, KHOI
Hat Sprayer: Nelly Portillo CCP
Anesthesia: GETA
EBL: per perfusion records
Products: None
CPB Time: 95 minutes
Aortic Cross Clamp Time: 66 minutes
Indication(s) for Procedures: This is a 68-year-old female with a history of B-cell leukemia with thrombocytopenia status post chemotherapy and IVIG infusion, respectively. She was found to have slurred speech and diagnosed with a transient
ischemic attack and was found to be in atrial fibrillation. She does not sense when she is in atrial fibrillation or a flutter. She was also found to have significant mitral valve insufficiency and from a symptomatology standpoint describes
feeling short of breath and extreme fatigue. She met class D symptomatology. Currently no guidelines are provided for atrial functional mitral valve insufficiency. However given the severity of her insufficiency, size of the left atrium, and
symptomatology with normal life expectancy per her oncologist, shared decision making was to pursue operative intervention in the form of mitral valve repair with maze and left atrial appendage exclusion.
Mitral Valve Description: Relatively normal leaflets, mild jet lesion at the A2 A3 free margin, dilated annulus in the both AP and trigone and trigone dimensions. Leaflets do not appear to be restricted in vivo.
Findings: Her left ventricular ejection fraction preoperatively was 60% with no significant regional wall motion abnormalities. She presented to the operating room in atrial fibrillation. Following surgery her EF remained the same at 60% with no
new regional wall motion abnormalities. She was in sinus bradycardia rhythm following the surgery. Her mitral valve was repaired with a 28 mm ring annuloplasty secured in place with a total of 14 nonpledgeted 2 Ethibond sutures with core knots.
Inspecting her valve I did not find any obvious restricted motion of the leaflets and in order to avoid shortening her already short anterior leaflet I do not plicate the free margin of either leaflet. Coming off cardiopulmonary bypass there is no
residual mitral valve insufficiency, no systolic anterior motion of the leaflets, and a mean gradient of 3 across the valve. Full biatrial maze was performed using a combination of RF ablation and cryotherapy as well as ligation of the left atrial
appendage which was verified to be free of any thrombus or debris preoperatively and found to be totally occlusive and flush to the base on transesophageal echocardiography. She did not require any blood products, she was bradycardic and so
low-dose dobutamine was started for rate. She responded to AI pacing with normal conduction. Of note, her heart was quite rotated rightward toward surgeon side.
Ablation Lines:
1. Box lesion to posterior LA wall
2. DEYSI lesion + DEYSI Exclusion + Division of Ligament of Brooks
3. Coronary sinus lesion
4. Posterior mitral annular line toward P2/P3
5. Tricuspid annular line
6. RAA line
7. SVC and IVC lines
Specimen(s): None.
Prosthesis:
1. 28mm WOODRUFF Physio II Annuloplasty Ring, SN [id number]
2. DEYSI Clip, 35mm, SN [id number]
Description of Procedure: The patient was taken to the operating room. Their identity and procedure to be performed were verified and they were positioned supine on the operating table. Induction via general anesthesia with endotracheal intubation
was performed and central venous access and arterial monitoring were inserted. A preoperative transesophageal echocardiogram was performed to assess cardiac function and valvular function. The patient was then prepped and draped from chin to feet in
a sterile fashion. A preoperative time-out was performed with all members of the team present. A midline chest incision was performed along with median sternotomy. The innominate vein was isolated. Full heparinization was given (a total of 42,000
units). We created a pericardial well. The aortic cannulation site was chosen where it was soft, pliable, and free of calcium. Cannulation was performed with an arterial cannula in the ascending aorta, angled metal tip cannular in the superior vena
cava and straight bendable cannula in the inferior vena cava. The arterial cannula line had an appropriate bounce and correlating pressures. Next, a root vent/antegrade cannula was inserted into the ascending aorta. The ACT was confirmed to be over
400 and retrograde autologous priming was performed before commencing cardiopulmonary bypass. The pulmonary artery was away from the aorta to facilitate a clamp site. Sondergaard�s groove was developed after creating the oblique sinus. I
developed the space between the SVC and the right pulmonary artery in order to facilitate placement of the encompass clamp through the transverse sinus and oblique sinuses. 3 successful pair of ablations were performed on cardiopulmonary bypass.
Next the clamp was removed and the heart was mobilized medially in order to expose the ligament of Brooks which was transected using electrocautery and left atrial appendage was ligated verified that was flush the base. The aortic cross-clamp was
placed after decreasing the flow on the bypass and mean arterial pressure. A total of 1.2L initial dose of antegrade Del-Nido cardioplegia solution was given and planned for re-dosing every 75 minutes as necessary. There was rapid electro-mechanical
arrest of the heart at 280 cc of cardioplegia. The left ventricle was observed for distention on echocardiogram and manual palpation. Cold slush was placed into a lap on the RV and we systemically cooled to 34 degrees centigrade.
Carbon dioxide was used to flood the field. The mitral valve was access via the intra-atrial groove followed by valve analysis. The mitral valve was repaired as described above. A bi-atrial Merrill-MAZE IV was performed with DEYSI occlusion with an
AtriClip device. The left ventricular vent was repositioned across the mitral valve into the left ventricular and the left atrium was closed with a 3-0 prolene. After scaring the SVC and IVC with Vesseloops, as part of the full biatrial maze, the
right atrium was opened in a long to no fashion towards and through the valerio terminalis. RF was used to burn the SVC and IVC lines as well as right atrial appendage line. Cryo was used to complete the tricuspid annular line as well as the tip of
the right atrial appendage line.
De-airing maneuvers were performed and temporary bipolar ventricular pacing wires were placed on the base of the right ventricle with additional atrial pacing wires at the SVC right atrial junction. The patient was placed in a Trendelenburg position
and flows on bypass were lowered. The aortic cross clamp was removed and flows were slowly brought back up. While the heart was reperfusing, the right atrial incision was closed with 5-0 Prolene in a double layer in a running fashion. At this
point the snares were removed. The left atrial suture line was hemostatic. Transesophageal echocardiography revealed no evidence of systolic anterior motion and ventricular function was normal. Once de-airing was satisfactory the left ventricular
and root vents were removed. After verifying acceptable parameters, we initiated weaning from cardiopulmonary bypass. Once we were off cardiopulmonary bypass, the venous cannulas was clamped and removed sequentially. A test dose of protamine was
administered and the patient was monitored for any adverse reaction before resuming protamine. Once half of the protamine dose was delivered, pump suckers were turned off and the systolic blood pressure was lowered for aortic decannulation. The
aortic cannula was removed and purse strings were tied down. All cannulation sites were oversewn with a 4-0 prolene. The left atrial suture line was inspected and hemostasis was confirmed. Mediastinal hemostasis was obtained. Two #24 Abebe drains
were placed within the pericardium. The sternum was approximated with 4 #7 single and 3 #8 double stainless steel wires. Fascia was approximated with #1 vicryl suture. The subcutaneous, dermis and epidermis were closed in layers in a running
fashion. The skin wound was cleansed and dressed.
All instrument, sponge, and needle counts were confirmed to be correct x 2 at the end of the operation. The patient was transferred to the cardiac intensive care unit in critical but stable condition.
I, Dr. Mendoza Carmona, was present, scrubbed for, and performed all critical elements of this procedure.
Mendoza Carmona MD, MS
Cardiothoracic Surgeon
[facility]
This dictation was created using the [employer] dictation system. Please excuse any grammatical, typographical, or 'sound alike' errors
[2024-01-02 11:34] LABS: Glucose - Point of Care 102 mg/dl (70-99)
[2024-01-02 11:48] LABS: Hemoglobin 9.8 g/dL (12.0-16.0); Platelet Count 86 10^3/uL (130-400)
[2024-01-02 11:57] LABS: INR 1.55; PT 18.4 Sec (11.4-14.6)
[2024-01-02 11:58] LABS: APTT 28.3 Sec (23.4-35.0)
--- NOTE | 2024-01-02 11:58 | CON.INTV ---
Consultation
Consultation Request
Date/Time Consultation Requested: 01/02/2024 - 1054
Date/Time Consultation Performed: 01/02/2024 - 1150
Requesting Provider: Gale OVIEDO
Performing Provider: Dr. Hansen
Reason for Consultation: s/p MV repair
Medical History
-
Chief Complaint: Elective MV repair
History of Present Illness:
68-year-old female with a past medical history of RA, trigeminal neuralgia, paroxysmal A-fib on Eliquis, GERD, hypertension, B-cell leukemia and history of chronic abdominal pain on chronic narcotics c/b opiate induced constipation who presents with
elective mitral valve repair. Patient known to cardiothoracic surgery with last office visit on 12/15/[address] Carmona. Patient has known severe mitral valve insufficiency and NYHA class III symptoms. Patient had very severe shortness of breath
with fatigue and met stage D symptomatology. Regarding her B-cell leukemia/lymphoma she was on IVIG due to thrombocytopenia which had resolved. Surgical intervention with mitral valve repair with maze and DEYSI exclusion with PFO closure was
discussed and she agreed to intervention. Today she underwent standard sternotomy with mitral valve repair, with biatrial maze, DEYSI exclusion with 40 mm clip placement. There were no immediate complications sutures transferred to the CVICU
postoperatively for further care. Critical care services now consulted for additional management/recommendations.
When I saw the patient she was in bed, intubated on SIMV 14/450/40%/5 with PIP 23 cmH2O, breathing at 14 breaths/min and VTe of 433 mL. BP via left radial A-line was 119/70, HR: 76, SpO2 100%, PAP 31/16 and CO/CI: 1.86/3.13. She is on dobutamine
at 2.5mcg/kg/min and precedex at 0.2mcg/kg/hr. Mediastinal Chest tube x2 in place.
PMHx: RA, trigeminal neuralgia, GERD, anemia, hypertension, B-cell leukemia, history of TIA, A-fib, osteopenia, paroxysmal A-fib, severe mitral valve insufficiency
PSHx: History of bowel resection/colectomy, cholecystectomy, total hysterectomy, L4�5 infusion, left knee surgery, renal artery stents
Past Medical History
Past Medical History: Other (Above as per HPI)
Past Surgical History: Other (Above as per HPI)
Social History
Tobacco: Non-smoker
Alcohol: None
Drug: None
Employment: Retired
Family History
Family History: CAD (Father, mother & siblings)
Allergies / Home Medications
Allergies
Allergy/AdvReac Type Severity Reaction Status Date / Time
hydromorphone [From Dilaudid] Allergy Hallucinati Verified 12/16/23 09:17
ons
Iodinated Contrast Media Allergy Palpitations, Verified 12/16/23 09:17
SOB
Home Medications
�Medication �Instructions �Recorded �Confirmed �Last Taken �Type
ascorbic acid (vitamin C) 1,000 mg 1,000 mg PO HS Supplement 10/10/23 01/02/24 1 Week Ago History
tablet (Vitamin C) ~12/26/23
docusate sodium 100 mg capsule 100 mg PO DAILY Constipation 10/10/23 01/02/24 01/01/24 07:00 History
(Stool Softener) 100 mg
famotidine 40 mg tablet 40 mg PO QPM Gastrointestinal Issue 10/10/23 01/02/24 01/01/24 21:00 History
40 mg
folic acid 1 mg tablet 1 mg PO SUMOTUWETHFR@0800 10/10/23 01/02/24 01/01/24 07:00 History
Supplement 1 mg
icosapent ethyl 1 gram capsule 2 g PO BID High Cholesterol 10/10/23 01/02/24 01/01/24 21:00 History
(Vascepa) 2
methotrexate sodium 2.5 mg tablet 20 mg PO SA@0800 Autoimmune 10/10/23 01/02/24 1 Week Ago History
Disorder ~12/26/23
naloxegol 25 mg tablet (Movantik) 25 mg PO DAILY Constipation 01/01/02/24 01/01/24 07:00 History
omeprazole 40 mg capsule,delayed 40 mg PO DAILY Gastrointestinal 10/10/23 01/02/24 01/01/24 07:00 History
release Issue
prochlorperazine 25 mg rectal 25 mg NM BID PRN nausea 10/10/23 01/02/24 10/08/23 History
suppository (Compro)
atorvastatin 40 mg tablet 40 mg PO DAILY #90 tabs 11/16/23 01/02/24 01/01/24 07:00 Rx
40 mg
furosemide 20 mg tablet (Lasix) 20 mg PO DAILY PRN swelling 11/16/23 01/02/24 Unknown History
ferrous sulfate 325 mg (65 mg 325 mg PO DAILY Supplement 12/16/23 01/02/24 01/01/24 07:00 History
iron) tablet (Iron (ferrous 325 mg
sulfate))
metoprolol succinate 50 mg 50 mg PO BID Heart 12/16/23 01/02/24 01/01/24 21:00 History
tablet,extended release 24 hr Disease/Condition 50 mg
morphine 100 mg tablet,extended 300 mg PO Q12H Pain 12/16/23 01/02/24 01/01/24 21:00 History
release 100 mg
vitamin A 1,500 mcg PO DAILY Supplement 12/16/23 01/02/24 1 Week Ago History
~12/26/23
vitamin B complex 1 tab PO DAILY Supplement 12/16/23 01/02/24 1 Week Ago History
~12/26/23
vitamin E (dl, acetate) 180 mg 180 mg PO HS Supplement 12/16/23 01/02/24 1 Week Ago History
(400 unit) capsule ~12/26/23
apixaban 5 mg tablet (Eliquis) 5 mg PO BID Blood Clot 01/02/24 01/02/24 12/31/23 07:00 History
Prevention/Tx 5 mg
Review of Systems
-
Unable to Obtain full review of systems at this time due to: Patient Intubation
Vitals / Labs / Diagnostic Testing
Vital Signs
Temp Pulse Resp BP Pulse Ox
97.6 F 77 14 127/71 100
01/02/24 13:06 01/02/24 13:00 01/02/24 13:06 01/02/24 11:50 01/02/24 13:06
Lab Data
01/02/24 11:32
Laboratory Results
01/02/24
11:32
PT 18.4 H
INR 1.55
APTT 28.3
pH 7.36
pCO2 42 H
pO2 225 H
HCO3 23.7
O2 Delivery Level
Diagnostic Testing:
Physical Exam
-
HEENT: Normocephalic and Anicteric
Cardiovascular: Irregular Rhythm and Peripheral Edema (Negative)
Respiratory: Wheeze (Negative), Rales (Negative), Non-Labored Respirations and Other (Mechanical breath sounds heard bilaterally)
GI: Soft, Non Distended and Non Tender
Neurology: Other (Sedated; spontaneously moves all 4 extremities)
Skin: Warm and Dry
General: Comfortable and Sweats (Negative)
Assessment
-
Assessment: 68-year-old female with a past medical history of RA, trigeminal neuralgia, paroxysmal A-fib on Eliquis, GERD, hypertension, B-cell leukemia and history of chronic abdominal pain on chronic narcotics c/b opiate induced constipation who
presents with elective mitral valve repair. Patient known to cardiothoracic surgery with last office visit on 12/15/[address] Carmoan. Patient has known severe mitral valve insufficiency and NYHA class III symptoms. Patient had very severe
shortness of breath with fatigue and met stage D symptomatology. Regarding her B-cell leukemia/lymphoma she was on IVIG due to thrombocytopenia which had resolved. Surgical intervention with mitral valve repair with maze and DEYSI exclusion with PFO
closure was discussed and she agreed to intervention. On 01/02/2024 she underwent standard sternotomy with mitral valve repair, with biatrial maze, DEYSI exclusion with 40 mm clip placement. There were no immediate complications sutures transferred
to the CVICU postoperatively for further care. Critical care services now consulted for additional management/recommendations.
Chronic conditions OCCUPATIONAL THERAPY ASSIST: RA, trigeminal neuralgia, GERD, anemia, hypertension, B-cell leukemia, history of TIA, A-fib, osteopenia, paroxysmal A-fib, severe mitral valve insufficiency
Impression:
#Severe mitral valve insufficiency s/p mitral valve repair (POD #0)
#Atrial fibrillation s/p biatrial maze and DEYSI exclusion (POD #0)
#Anemia
#Thrombocytopenia
Plan:
Ventilator settings reviewed
FiO2 will be weaned + maintain SpO2 >90-94%
Minute ventilation will be adjusted
Arterial blood gases will be monitored
Spontaneous breathing trial will be attempted with hopeful extubation after anesthesia/sedation wear off
Pulmonary artery catheter parameters will be followed
Pressors/antihypertensive/inotropes/diuretics will be provided as needed
Maintain MAP>65
Trend CO and CI
Replete electrolytes with K>4, Mg>2
Monitor chest tube output (mediastinal chest tubes x2)
Monitor hemoglobin
Monitor platelet count and coags
Transfuse blood product if needed
CT surgery managing chest tubes
Monitor blood sugar with goal BG 140-180mg/dL
Insulin drip per protocol
Aspiration precautions
VAP prevention protocol
DVT prophylaxis
Early nutrition
Early mobilization
Critical care statement: A total of 41 minutes of critical care time was provided for this patient today. This includes management of ventilator, spontaneous breathing trial, arterial blood gases, pressors, of unstable vital signs, evaluation of the
patient at bedside, reviewing the patient's pertinent medical records including radiographs, microbiology, laboratory evaluations, and discussion with primary team and critical care nursing.
Data:
CXR 01-02-2024: Postoperative tubes/lines. No acute cardiopulmonary process.
--- NOTE | 2024-01-02 12:00 | W.PN.UPDATE ---
Update Note
Progress Note Update
68-year-old female electively admitted on 01/02/2024 for mitral valve repair/MAZE/DEYSI clip for severe mitral insufficiency and persistent atrial fibrillation
IV fluids: 1250
U.O.:� 275
Blood:� none
Wires:� 2 A wires & 1 bipolar V wire
Inotropes:� Dobutamine @ 2.5
Pressors:� none
Sedatives:� Precedex
�
NEURO: sedated on Precedex, pupils +2mm B/L
RESP: #7OT @21cm> 450/60%/08/16. Lungs clear B/L. 2 mediastinal (20cc on arrival) chest tubes to -20cm suction. Sanguineous drainage
CV: RRR +S1, S2, no S3, no�rub, no murmur. Dermabond to median sternotomy. RIJ w/Luverne locked @42. PA 38/19; CVP 9; C.O XX/CI XX
ABD: round, soft, no BS
EXT: no edema, +2/4 DP pulses B/L, no femoral bruit, left radial A-line intact
: Boggs with clear yellow urine
�
A/P: POD #0 s/p MV repair # 28mm ring, bi-atrial MAZE (RF ablation + cryo), Left atrial appendage #40mm clip
EFREN: EF�60-65%. Tr residual MR, MV mean 8mmHg, mild TR
- wean and extubate
- will need instruction regarding antibiotic prophylaxis for dental and invasive procedures
# Persistent atrial fibrillation
- currently in SB and a-paced @ 74BPM
- On home Eliquis 5mg BID>will discuss further AC needs with surgeon/cardiology
�
# acute surgical blood loss anemia-expected
- post-op Hb 9.8
- trend CBC
- Ferric gluconate/Vit C post-op
�
# Hx chronic pain d/t neuropathy, cell lymphoma, bowel resections
- continue home dose MSO4 ER 300mg BID
- continue Movantik for opioid induced constipation
- Methotrexate 20mg q Tuesday
- T/C MINER if pain uncontrolled with usual modalities
�
# Hyperlipidemia
- resume�Lipitor 40mg daily and Vascepa 2G BID
# GERD
- Protonix 40mg daily>resume Omeprazole 40mg daily on DC
[2024-01-02 12:03] LABS: Blood Urea Nitrogen 15 mg/dl (7-17); Estimated Creatinine Clearance 76 ml/min; Glucose 94 mg/dl (70-99); Magnesium 2.6 mg/dl (1.6-2.3)
--- NOTE | 2024-01-02 12:07 | PTCARENOTE ---
received pt from [facility] OR into 2264. Paced rhythm on tele via epicardial pacing wires w junctional rhythm underneath. + peripheral pulses, no edema noted, lines leveled and zeroed, BP via left radial jorge alberto 118/71, right IJ cordis w swan floated to 40,
PAP 28/15, CVP 8-10, CO 3.13 CI 1.86. Lungs diminished, #7 ETT, 20cm at the right lip, pox 100% on SIMV 450/12/60%/+[address] x2 draining red, olsen catheter w jackie urine.
CPOT 0, RASS -5
DRIPS: Dobutamine 2.5mcg/kg/min
Precedex 0.3mcg/kg/hr
Insulin titrated per glycemic protocol
[2024-01-02 12:09] LABS: B.E. -1.7 mmol/L; HCO3 23.7 mmol/L (21-28); Ionized Calcium 1.28 mMOL/L (1.15-1.33); O2 Saturation % 99.3 % (94-98); PCO2 42 mmHg (32-35); PO2 225 mmHg (83-108); Sodium 141 mMOL/L (136-145); pH 7.36 (7.35-7.45)
--- NOTE | 2024-01-02 12:53 | PTCARENOTE ---
ABG result reviewed w CV RESIDENT INSPECTOR, RR rate increased from 12-14 and Fi02 decreased from 60-40 on vent by RT. Pox remains 100%.
[2024-01-02] MEDS: ANCEF 10 IV ×2 (12:59)
[2024-01-02] MEDS: LIPITOR PO (13:00)
[2024-01-02] MEDS: NSS 500 IV (13:00)
[2024-01-02] MEDS: LR 1000 IV (13:00)
[2024-01-02 13:04] LABS: Glucose - Point of Care 134 mg/dl (70-99)
[2024-01-02] MEDS: MS CONTIN (EXTENDED RELEASE) PO (13:07)
--- NOTE | 2024-01-02 13:27 | PTCARENOTE ---
pt opened eyes spontaneously, followed commands by squeezing both hands.
[2024-01-02 14:00] LABS: Glucose - Point of Care 115 mg/dl (70-99)
[2024-01-02] MEDS: TYLENOL PO (14:05)
[2024-01-02] MEDS: DDAVP 55.5 MCG IV (14:31)
[2024-01-02] MEDS: FERRLECIT 110 MG IV (14:52)
[2024-01-02 14:58] LABS: Glucose - Point of Care 92 mg/dl (70-99)
--- NOTE | 2024-01-02 14:59 | PTCARENOTE ---
CHG bath completed
--- NOTE | 2024-01-02 15:06 | PTCARENOTE ---
pt placed on CPAP wean by RT.
[2024-01-02 15:43] LABS: Hematocrit 30.7 % (37.0-47.0); Hemoglobin 10.4 g/dL (12.0-16.0); Platelet Count 109 10^3/uL (130-400)
[2024-01-02 15:46] LABS: B.E. -1.7 mmol/L; HCO3 23.7 mmol/L (21-28); Ionized Calcium 1.23 mMOL/L (1.15-1.33); O2 Saturation % 98.7 % (94-98); PCO2 42 mmHg (32-35); PO2 191 mmHg (83-108); Potassium 4.8 mMOL/L (3.5-5.1); Sodium 141 mMOL/L (136-145); pH 7.36 (7.35-7.45)
[2024-01-02 16:05] LABS: Glucose - Point of Care 115 mg/dl (70-99)
--- NOTE | 2024-01-02 16:06 | PTCARENOTE ---
pt was extubated to 6L NC. Pox 100%. Achieved 750 on IS.
[2024-01-02] MEDS: PACERONE 200 MG PO ×2 (17:17→22:32)
[2024-01-02] MEDS: ANCEF 5 IV (17:17)
[2024-01-02 18:09] LABS: Glucose - Point of Care 101 mg/dl (70-99)
--- NOTE | 2024-01-02 18:35 | PTCARENOTE ---
upon extubation it was noted that the pt has left sided facial droop. Per the pt this is residual from her TIA earlier this year.
[2024-01-02] MEDS: SENOKOT-S 1 TABLET PO (19:52)
[2024-01-02] MEDS: VITAMIN C 500 MG PO (19:52)
[2024-01-02] MEDS: MS CONTIN (EXTENDED RELEASE) 300 MG PO (19:52)
[2024-01-02 20:16] LABS: Glucose - Point of Care 107 mg/dl (70-99)
--- NOTE | 2024-01-02 20:30 | PTCARENOTE ---
Patient received resting in bed, dozing intermittently. Patient A+A+Ox3. No neurological deficits noted. No c/o headache, dizziness or lightheadedness. No s/s of respiratory distress. No c/o SOB. O2 at 4L via NC. SaO2 100%. O2 decreased to
3L. Two mediastinal chest tubes - Intact and patent - 10-20ml red drainage - No air leak, tidaling or crepitus noted. Chest tube dressing intact. No adventitious breath sounds noted. Sinus Rhythm. Occasional PAC. 4 beat VT. Occasional A-Paced
pacer spikes noted. Heart rate 70-80's. Epicardial Temporary Pacemaker - AV Wires - AAI Rate 74, Output 10, Sensitivity 0.4. VVI off. Patient with no c/o chest pain, pressure or discomfort. Hypoactive bowel sounds. No BM. No c/o nausea. No
vomiting. Boggs catheter - Temperature sensing - Light jackie,yellow urine - Outputs as charted. Core Temperature 98.9 - 99.2 F. Positive, palpable pulses. Trace generalized edema. Right I.J. Cordis with [place] Albert catheter. Left radial arterial
line. A-Line, PAP, CVP with pressure bag/saline flush - Flush without difficulty - Zeroed and calibrated - Waveforms within normal limits. CVP 9. PAP 28/12 (19). SVR 1640. C.O. 3.95 C.I. 2.35. Dobutamine gtt now infusing at 1 mcq/kg/min (2.3
ml/hr). Sternal incision intact - Surgical adhesive - Open to air. Patient tolerating ice chips and sips of water. Assessment as documented.
[2024-01-02 22:02] LABS: Glucose - Point of Care 103 mg/dl (70-99)
[2024-01-02] MEDS: TYLENOL 1000 MG PO (22:32)
--- NOTE | 2024-01-02 22:40 | PTCARENOTE ---
Patient A+A+Ox3. No neurological deficits noted. Patient watching television and dozing intermittently. C.O. 3.93 C.I. 2.34. Dobutamine gtt decreased to 0.5 mcq/kg/min (1.2 ml/hr). CVP 10. PAP 29/14 (20). SVR 1689. AAI rate decreased to 60
by PA - Occasional pacer spikes noted. Heart rate 70's. Amiodarone 200 mg PO administered. No further changes from previous assessment.
[2024-01-03] VITALS (21 sets, daily range): BP systolic 105–130; BP diastolic 62–81; PULSE 75; O2SAT 93–96; BMI 30.2
[2024-01-03 00:12] LABS: Glucose - Point of Care 99 mg/dl (70-99)
--- NOTE | 2024-01-03 00:30 | PTCARENOTE ---
C.O. 3.43 C.I. 2.04. Patient sleeping. Assessment as documented.
[2024-01-03] MEDS: LR 1000 IV (00:39)
[2024-01-03 01:09] LABS: Magnesium 2.2 mg/dl (1.6-2.3); Potassium 4.8 mmol/L (3.5-5.1)
[2024-01-03] MEDS: ANCEF 5 IV ×2 (01:19→10:23)
[2024-01-03] MEDS: ULTRAM 25 MG PO ×3 (02:14→12:59)
[2024-01-03] MEDS: LR 250 IV (02:15)
[2024-01-03 02:26] LABS: Glucose - Point of Care 107 mg/dl (70-99)
--- NOTE | 2024-01-03 03:00 | PTCARENOTE ---
Labs collected and sent. K 4.8 MAG 2.2 Ionized Calcium 1.20. Patient with 5/10 sternal pain. Ultram 25 mg PO ordered and administered without difficulty. IVF Bolus LR 250 ml over 1hr administered for decreased urine output. BP via A-Line
137/70 (90). Nitro gtt started at 5 mcq/min (0.8 ml/hr) then increased to 10 mcq/min (1.5 ml/hr). C.O. 4.11 C.I. 2.45. Dobutamine gtt off. Assessment/Interventions as documented.
[2024-01-03 03:06] LABS: Glucose - Point of Care 111 mg/dl (70-99)
[2024-01-03 04:00] LABS: Glucose - Point of Care 105 mg/dl (70-99)
[2024-01-03 04:26] LABS: Hematocrit 25.5 % (37.0-47.0); Hemoglobin 8.8 g/dL (12.0-16.0); Mean Corp Hgb Conc. 34.5 g/dL (33.0-37.0); Mean Corpuscular Hgb 32.2 pg (27.0-31.0); Mean Corpuscular Volume 93.4 fL (81.0-99.0); Mean Platelet Volume 10.4 fL (7.4-10.4); Platelet Count 103 10^3/uL (130-400); Red Blood Cell Count 2.73 10^6/uL (4.20-5.40); White Blood Cell Count 8.4 10^3/uL (4.8-10.8)
[2024-01-03 04:54] LABS: Blood Urea Nitrogen 22 mg/dl (7-17); Calcium 8.2 mg/dl (8.4-10.2); Carbon Dioxide 23 mmol/L (22-30); Chloride 109 mmol/L (98-107); Estimated Creatinine Clearance 66 ml/min; Glucose 92 mg/dl (70-99); Magnesium 2.2 mg/dl (1.6-2.3); Potassium 4.6 mmol/L (3.5-5.1); Sodium 134 mmol/L (135-145); eGFR > 60.00
--- NOTE | 2024-01-03 05:00 | PTCARENOTE ---
C.O 3.03 C.I. 1.81. Dobutamine restarted at 0.5 mcq/kg/min (1.2 ml/hr). Nitro gtt restarted to maintain MAP 70-90. Patient resting in bed without difficulty. Assessment/Interventions as documented.
[2024-01-03 05:11] LABS: Glucose - Point of Care 87 mg/dl (70-99)
[2024-01-03] MEDS: TYLENOL 1000 MG PO ×3 (05:56→21:10)
--- NOTE | 2024-01-03 06:00 | PTCARENOTE ---
Patient A+A+Ox3. No neurological deficits noted. Patient continues on Dobutamine gtt, Nitro gtt and Insulin gtt. C.O. 4.01 C.I. 2.39 CVP 11 PAP (23). SVR 1575. Assessment/Interventions as documented.
[2024-01-03 06:15] LABS: Glucose - Point of Care 100 mg/dl (70-99)
--- NOTE | 2024-01-03 06:52 | W.PN.CT ---
Today's Communication / Plan
-
-pod #1
-no significant issues overnight
-CI 2.39, CO 4.0. Drips: Dobut 0.5, LR @ 80 cc/hr, Nitro 15, Insulin
-CT output: 2 meds 150/380
-brief SVT and NSVT overnight (lytes wnl)
-junctional rhythm postop, then nsr overnight
-h/h 8.8/25.5 today - follow
-eventually restart Eliquis for persistent a-fib
-continue low-dose BB, Amio - monitor for bradycardia
-encourage IS, OOB
Assessment / Plan
-
- Severe MV insufficiency- s/p Mitral valve repair [28 mm ring annuloplasty]; ASD/PFO Closure; Biatrial maze [combination of RF ablation and cryo]; LAAE with a 40 mm clip on 01/02/[address] Carmona, pod #1
- Intraop EFREN: LVEF preop was 60% with no significant regional wma. She presented to the operating room in atrial fibrillation. Following surgery, EF remained the same at 60% with no new wma. She was in sinus bradycardia rhythm following the
surgery.
- Persistent atrial fibrillation with history of TIA/stroke 10/10/23- on Eliquis preop
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
- B-cell leukemia w/port, status post chemotherapy
- Thrombocytopenia status post IVIG infusions
- Rheumatoid arthritis
- Trigeminal neuralgia
- Acid reflux
- Osteopenia
- Multiple bowel resection/colectomies
- DARYL
- L renal artery stent
- Acute postop blood loss anemia- no transfusion
- Acute postop thrombocytopenia
- Acute postop atelectasis
- Acute postop hypovolemia with subsequent hypervolemia
Discussed patient care with: Nursing and Care Team
Subjective
-
Date of Service: January 03, 2024
Objective Data
-
PT 18.4 Sec (11.4-14.6) H 01/02/24 11:32
INR 1.55 01/02/24 11:32
APTT 28.3 Sec (23.4-35.0) 01/02/24 11:32
Vital Signs
Vital Signs
Temp Pulse Resp BP Pulse Ox
98.9 F 73 16 118/89 100
01/02/24 23:00 01/02/24 23:00 01/02/24 23:00 01/02/24 23:00 01/02/24 23:[address]
CT Intake/Output/Weight
01/02/24 01/02/24 01/03/24
06:59 18:59 06:59
Intake Total 798.9 / 1449.6 650.7 / 1449.6
Output Total 540 / 800 260 / 800
Balance 258.9 / 649.6 390.7 / 649.6
SaO2: 100
Physical Exam
-
General: Awake and AOx3
Cardiovascular: Regular rate & rhythm, No Murmurs and No Rub
Respiratory: Decreased Breath Sounds
Sternum: Stable
Incision: Clean, Dry and Dressing Intact
Extremities: Edema +1
Data Reviewed
-
Lab Results: Results Reviewed
Medications: Active Meds Reviewed
Chest X-Ray: Report Reviewed and Image Reviewed
ECG: Report Reviewed and Image Reviewed
--- NOTE | 2024-01-03 07:24 | W.PN.ANS.POP ---
Anesthesia Post Operative
- Anesthesia Post Op Note
Vital Signs Stable-See Nursing Note: Yes (nitro and dobutamine infusions)
Airway Patent: Yes
Adequate Pain Control: Yes
Change in Mental Status: No
Current Postoperative Nausea & Vomiting: No
Anesthesia Complications: No
General Anesthetic Recall: No
Unplanned Admission: No
Post Op Hydration Adequate: Yes
--- NOTE | 2024-01-03 07:30 | PTCARENOTE ---
Assumed care of patient from manufacturing supervisor 2nd shift RN. AAO x3 dozing intermittently. SR w/ PAC's on monitor. Epicardial wire set to AAI 54. No pacing noted at present. Rt IJ cordis with swan floated to 40 cm. Lt radial A line transducing. Lines
leveled, recalibrated and flushed. Insulin infusing per glycemic protocol. Dobutamine infusing along with Nitroglycerine on hand off. Chest tubes x 2 to -20 cm suction. No air leak or crepitus noted. Abdomen with hypoactive bowel sounds noted.
Denies nausea. Tolerating liquids. Trace general anasarca noted. Pulses palpable. Plan for day discussed.
[2024-01-03] MEDS: LOW STRENGTH ASPIRIN 81 MG PO (07:40)
[2024-01-03] MEDS: VITAMIN C 500 MG PO ×2 (07:40→20:01)
[2024-01-03] MEDS: MS CONTIN (EXTENDED RELEASE) 300 MG PO ×2 (07:40→20:01)
[2024-01-03] MEDS: BACTROBAN 2% OINTMENT 1 APPLIC NASAL ×2 (07:40→20:01)
[2024-01-03] MEDS: PROTONIX 40 MG PO (07:40)
[2024-01-03] MEDS: LIPITOR 40 MG PO (07:40)
[2024-01-03] MEDS: NEURONTIN 100 MG PO ×3 (07:41→21:10)
[2024-01-03] MEDS: PACERONE 200 MG PO ×3 (07:41→21:10)
[2024-01-03] MEDS: LASIX 40 MG IV (07:41)
[2024-01-03] MEDS: SENOKOT-S 1 TABLET PO ×2 (07:41→20:01)
[2024-01-03 08:20] LABS: Glucose - Point of Care 102 mg/dl (70-99)
[2024-01-03 08:32] LABS: Mixed Venous O2 Saturation 59.1 %
--- NOTE | 2024-01-03 09:12 | W.PN.CD ---
Today's Communication / Plan
-
lasix
ics
wean db current index 2.3
Impression / Plan
-
BACKGROUND: 68F with moderate-severe mitral regurgitation, chronic HFpEF, persistent atrial fibrillation (on Eliquis), TIA, hypertension, non-obstructive CAD, B cell lymphoma (prior IVIG), & renal artery stenosis s/p right stent presents for MV
repair with MAZE
Faculty Member: Dr. Bermudez
Severe mitral regurgitation S/P mitral valve repair [28 mm ring annuloplasty] by Dr. Carmona 01/02/2024
-EKG with junctional rhythm, EKG today sinus with intermittent pacing
-Post EF 60% (unchanged) without RWMA, mean gradient 3mmHg
-Low dose dobutamine continues, wean as able, idex >2 currently
-Follow telemetry
Persistent atrial fibrillation S/P Biatrial maze [combination of RF ablation and cryo] & DEYSI Clip 40mm
-Sinus vivienne
-She did not tolerate amiodarone
-Oral Anticoagulation: Apixaban 5mg BID, resumption timing per CTS
-[id number]: score 6 (Heart failure, prior Stroke/TIA, Vascular disease, age 65-74, female gender)
HFpEF, chronic
-[facility] 11/2023: LVEDP = 14 mmHg, PCWP = 15 mmHg at 76.2 kg
-wt up 79.8kg post op, agree with lasix today
-Follow volume status
CAD, non obstructive by [facility] 11/2023, on single agent (Eliquis)
PFO, small
Hypertriglyceridemia, on Vascepa
Prior TIA
B cell lymphoma, on IVIG Q4 weeks (managed at [facility], Dr. Koenig)
RA, on MTX (held pre op)
Subjective:
pain improving. no sob
CCT 31 minutes
Physical Exam
Vital Signs/Labs
Vital Signs
Temp Pulse Resp BP Pulse Ox
97.8 F 68 20 114/76 98
01/03/24 07:21 01/03/24 07:45 01/03/24 07:45 01/03/24 07:00 01/03/24 07:58
01/02/24 01/03/24 01/04/24
06:59 06:59 06:59
Actual Weight 76.3 kg 79.8 kg
01/03/24 03:59
01/03/24 03:59
PT 18.4 Sec (11.4-14.6) H 01/02/24 11:32
INR 1.55 01/02/24 11:32
APTT 28.3 Sec (23.4-35.0) 01/02/24 11:32
Magnesium 2.2 mg/dl (1.6-2.3) 01/03/24 03:59
Physical Exam
Constitutional: No acute distress
Cardiovascular: Rhythm & rate is regular, Pedal edema is absent, JVD pressure is normal, Systolic murmur absent and Diastolic murmur absent
Respiratory: Lungs clear to auscul. (poor effort decreased b/l)
Neuro/Psych: AO x 3
Data Reviewed
-
Date of Service: January 03, 2024
EKG: Tracing Personally Visualized and interpreted (sinus wtih intermittent pacing)
[2024-01-03] MEDS: MIRALAX 17 GRAMS PO (10:22)
[2024-01-03 10:23] LABS: Glucose - Point of Care 123 mg/dl (70-99)
[2024-01-03] MEDS: NSS IV (10:23)
--- NOTE | 2024-01-03 11:08 | PTCARENOTE ---
Lt radial Arterial line removed, pt tolerated, hemostasis achieved w/o issue. Assist x 2 then oob to chair, no dumping noted from chest tubes, denies dizziness. Pain management. Will monitor.
--- NOTE | 2024-01-03 11:52 | W.PN.INTV ---
Today's Communication / Plan
Recommendations
Up OOB as tolerated
Pain control
Encourage incentive spirometer
Patient is now transferred to CVICU�telemetry status. Validation Software Facilitator/pulmonary service will now sign off. Please reconsult if there are any additional questions/concerns, or if patient's respiratory status deteriorates.
Assessment
-
Assessment: 68-year-old female with a past medical history of RA, trigeminal neuralgia, paroxysmal A-fib on Eliquis, GERD, hypertension, B-cell leukemia and history of chronic abdominal pain on chronic narcotics c/b opiate induced constipation who
presents with elective mitral valve repair. Patient known to cardiothoracic surgery with last office visit on 12/15/[address] Carmona. Patient has known severe mitral valve insufficiency and NYHA class III symptoms. Patient had very severe
shortness of breath with fatigue and met stage D symptomatology. Regarding her B-cell leukemia/lymphoma she was on IVIG due to thrombocytopenia which had resolved. Surgical intervention with mitral valve repair with maze and DEYSI exclusion with PFO
closure was discussed and she agreed to intervention. On 01/02/2024 she underwent standard sternotomy with mitral valve repair, with biatrial maze, DEYSI exclusion with 40 mm clip placement. There were no immediate complications sutures transferred
to the CVICU postoperatively for further care. Critical care services now consulted for additional management/recommendations.
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
Impression:
#Severe mitral valve insufficiency s/p mitral valve repair (POD #1)
#Atrial fibrillation s/p biatrial maze and DEYSI exclusion (POD #1)
#Anemia
#Thrombocytopenia
Plan:
Tolerated extubation
Maintain SpO2 >90-94%
Encourage incentive spirometry
Increase activity
Aspiration precautions
Pulmonary artery catheter and arterial line removed
Pressors have been weaned
Replete electrolytes with K>4, Mg>2
Continue to monitor chest tube(s) output (mediastinal chest tubes x2)
Follow hemoglobin
Continue to follow platelet count and coags
Transfuse blood product as needed tot keep Hb>7, plt>50k
CT surgery managing chest tubes as well
Follow blood sugar with goal BG 140-180mg/dL
Insulin supplementation continues as needed
Early nutrition
Early mobilization
DVT prophylaxis
Patient is now transferred to CVICU�telemetry status. Validation Software Facilitator/pulmonary service will now sign off. Thank you for allowing us to be involved in the care of this patient. Please reconsult if there are any additional questions/concerns, or if
patient's respiratory status deteriorates.
I personally reviewed the patient's pertinent medical records including radiographs, microbiology, laboratory evaluations, and discussion with primary team, and critical care nursing.
Data:
CXR 01-03-2024: Interval removal of endotracheal tube; No pneumothorax.
CXR 01-02-2024: Postoperative tubes/lines. No acute cardiopulmonary process.
Subjective Dataa
Subjective Data
Date of Service:
Date of Service: January 03, 2024
Chief Complaint: Validation Software Facilitator Follow Up
Subjective:
Patient seen and evaluated today at bedside. Mediastinal chest tubes x2 in place. Heart rate 64, BP 130/80. She currently denies any complaints. Denies shortness of breath, headache, abdominal pain, fevers or chills. She is pulling
approximately 500-750 mL from incentive spirometer.
Review of Systems
General: Other (Negative unless mentioned above)
Objective Data
Data Reviewed
Vital Signs / I&O / Oxygen:
Vital Signs
Temp Pulse Resp BP Pulse Ox
98.0 F 64 14 130/80 95
01/03/24 15:36 01/03/24 15:45 01/03/24 15:36 01/03/24 15:34 01/03/24 15:36
Intake and Output
01/02/24 01/03/24 01/04/24
06:59 06:59 06:59
Intake Total 2599.4 / 2599.4 698.0 / 698.0
Output Total 1130 / 1130 1820 / 1820
Balance 1469.4 / 1469.4 -1122.0 / -1122.0
SaO2 [CPAP] 100
SaO2 [SIMV] 100
SaO2 95
Nasal Cannula flow liters per 2
minute
Physical Exam
General: Respiratory Distress (negative), Comfortable, Chills (negative) and Sweats (negative)
HEENT: Normocephalic and Anicteric
Cardiovascular: Irregular Rhythm, Peripheral Edema (negative) and Other (Normal rate)
Respiratory: Wheeze (negative), Crackles (negative), Rhonchi (negative) and Chest Tube (Mediastinal chest tube x2)
GI: Soft, Non Distended and Non Tender
Neurology: AO x 3
Skin: Warm and Dry
Labs/Micro/Reports
Lab Data
01/03/24 03:59
01/03/24 03:59
[2024-01-03] MEDS: FERRLECIT 110 MG IV (13:05)
--- NOTE | 2024-01-03 13:22 | PTCARENOTE ---
Pt tolerated sitting up in the chair x 1 1/2 hours. Once back in bed, cardiac index of 2.[address] CINDER DUMP CRANE OPERATOR notified, order obtained to de renee , Dobutamine drip dc'd. RT IJ swan removed. Boggs catheter also removed and pt placed on time and
amount. VSS. Will monitor.
--- NOTE | 2024-01-03 15:52 | PTCARENOTE ---
Resting in bed , pain well managed at this point. No desire to void at present. Chest tubes remain with dark seriousang drainage. VSS No change in assessment from prior.
--- NOTE | 2024-01-03 16:21 | CM ---
Reviewed chart. Met with Mrs. Murguia to review discharge plans. She states she is feeling well. She states prior to admission she resides alone in second floor walk-up apartment. She states she has fourteen steps to get to the apartment. She
states her neighbor she trina call if she needs anything. She also states her son resides nearby and he works from home. She did consider staying with her son but she is not sure she willbe able to relax there. He has two small children and two
dogs. Will need to see her current functional level to see if she will have any skilled care needs. Medical work-up in progress. The discharge plan is to return home with a home visit by the Cardiothoracic Transitional Care Nurse when medically
stable.
[2024-01-03] MEDS: ULTRAM 50 MG PO (18:36)
--- NOTE | 2024-01-03 19:41 | PTCARENOTE ---
Patient received from [facility] nurse. Patient is alert and oriented x4, pleasant. Patient c/o 6/10 sternal incision pain, administered scheduled pain medication as ordered. NSR with occasional PACs. HR 60s. Audible heart tones. BP 117/75. Trace
generalized edema. Palpable pulses, weakly palpable dorsalis pedal pulses. RIJ cordis maintained with KVO. PIV maintained. RA. Oxygen saturation 95%. Upon auscultation, bilateral base lung sounds diminished. IS 750. Abdomen round, obese. +BS, per
patient passing gas. No BM yet. Bladder scanned 135cc post Boggs removal 6hrs ago. Sternal incision approximated with surgical adhesive and open to air. Assist x1 OOB into BR. Will continue to monitor.
[2024-01-03] MEDS: LOPRESSOR 12.5 MG PO (20:04)
--- NOTE | 2024-01-03 23:15 | PTCARENOTE ---
Assumed care of patient from previous RN. Pt AAOx3. Sinus vivienne on the monitor. HR 55-60. Temporary epicardial A/V wires set to AAI 50/8/0.4. BP stable. Palpable pulses throughout. Trace edema. RA. POX 96%. Mediastinal CTx2 intact and draining
appropriately. Pt abdomen soft/nontender. Pt due to void s/p Boggs removal. Sternal incision approximated w/ surgical adhesive. Right IJ cordis w/ KVO CDI. PIVx1 CDI. Pt resting in bed at this time. Call robert within reach.
[2024-01-04] VITALS (14 sets, daily range): BP systolic 93–120; BP diastolic 55–81; PULSE 63; O2SAT 95; BMI 30.4
[2024-01-04] MEDS: ULTRAM 50 MG PO ×3 (02:12→22:38)
--- NOTE | 2024-01-04 04:15 | PTCARENOTE ---
Previous assessment unchanged. Pt sinus vivienne on monitor. Temporary epicardial A/V wires intact and set to backup 50/8/0.4. BP stable. RA. POX 95%. Med x2 CT assessment unchanged. All surgical sites stable. Pt bladder scanned for 231 ml. No urge to
void. Labs drawn and sent. Call robert within reach.
[2024-01-04 04:17] LABS: Hematocrit 27.9 % (37.0-47.0); Hemoglobin 9.5 g/dL (12.0-16.0); Mean Corp Hgb Conc. 34.1 g/dL (33.0-37.0); Mean Corpuscular Hgb 32.6 pg (27.0-31.0); Mean Corpuscular Volume 95.9 fL (81.0-99.0); Mean Platelet Volume 11.3 fL (7.4-10.4); Platelet Count 101 10^3/uL (130-400); Red Blood Cell Count 2.91 10^6/uL (4.20-5.40); White Blood Cell Count 11.9 10^3/uL (4.8-10.8)
[2024-01-04 04:52] LABS: Blood Urea Nitrogen 33 mg/dl (7-17); Calcium 8.3 mg/dl (8.4-10.2); Carbon Dioxide 27 mmol/L (22-30); Chloride 100 mmol/L (98-107); Estimated Creatinine Clearance 54 ml/min; Glucose 111 mg/dl (70-99); Magnesium 2.2 mg/dl (1.6-2.3); Potassium 4.7 mmol/L (3.5-5.1); Sodium 129 mmol/L (135-145); eGFR > 60.00
--- NOTE | 2024-01-04 06:06 | W.PN.CT ---
Addendum entered and electronically signed by PREET Morales 01/04/24 10:17:
CDI QUERY RESPONSE
Na+ 129>Hyponatremia
Original Note:
Today's Communication / Plan
-
POD #2
-no significant issues overnight
-Tele phase
-CT output: 2 meds 150/380
-junctional rhythm postop, then nsr overnight -> now sinus vivienne 50-60s
-h/h 9.5/27.9 today - improving
-RA
-plan to restart Xarelto 01/04 for persistent a-fib
-continue low-dose BB, Amio - monitor for worsening/symptomatic bradycardia
-encourage IS, OOB
-PT/OT, OOB
-dispo planning
Assessment / Plan
-
- Severe MV insufficiency- s/p Mitral valve repair [28 mm ring annuloplasty]; ASD/PFO Closure; Biatrial maze [combination of RF ablation and cryo]; LAAE with a 40 mm clip on 01/02/[address] Carmona, pod #2
- Intraop EFREN: LVEF preop was 60% with no significant regional wma. She presented to the operating room in atrial fibrillation. Following surgery, EF remained the same at 60% with no new wma. She was in sinus bradycardia rhythm following the
surgery.
- Persistent atrial fibrillation with history of TIA/stroke 10/10/23- on Eliquis preop
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
- B-cell leukemia w/port, status post chemotherapy
- Thrombocytopenia status post IVIG infusions
- Rheumatoid arthritis
- Trigeminal neuralgia
- Acid reflux
- Osteopenia
- Multiple bowel resection/colectomies
- DARYL
- L renal artery stent
- Acute postop blood loss anemia- no transfusion
- Acute postop thrombocytopenia
- Acute postop atelectasis
- Acute postop hypovolemia with subsequent hypervolemia
Discussed patient care with: Care Team
Subjective
Procedure
s/p Mitral valve repair [28 mm ring annuloplasty]; ASD/PFO Closure; Biatrial maze [combination of RF ablation and cryo]; LAAE with a 40 mm clip on 01/02/[address] Carmona
-
Date of Service: January 04, 2024
Objective Data
-
Lab Results
01/03/24 03:59
01/03/24 03:59
PT 18.4 Sec (11.4-14.6) H 01/02/24 11:32
INR 1.55 01/02/24 11:32
APTT 28.3 Sec (23.4-35.0) 01/02/24 11:32
Vital Signs
Vital Signs
Temp Pulse Resp BP Pulse Ox
97.8 F 62 16 117/75 95
01/03/24 19:38 01/03/24 20:04 01/03/24 19:38 01/03/24 20:04 01/03/24 19:38
CT Intake/Output/Weight
01/03/24 01/03/24 01/04/24
06:59 18:59 06:59
Intake Total 1800.5 / 2599.4 698.0 / 718.0 20 / 718.0
Output Total 590 / 1130 1820 / 1890 70 / 1890
Balance 1210.5 / 1469.4 -1122.0 / -1172.0 -50 / -1172.0
SaO2: 95
Physical Exam
-
General: Awake, Oriented and AOx3
Cardiovascular: Regular rate & rhythm
Respiratory: Clear and Equal
Sternum: Stable
Incision: Clean, Dry and Intact
Extremities: Edema +1
Data Reviewed
-
Lab Results: Results Reviewed
Medications: Active Meds Reviewed
Chest X-Ray: Image Reviewed
Vital Signs / Labs
-
Vital Signs and Labs:
Temp Pulse Resp BP Pulse Ox
98 F 54 16 117/76 95
01/04/24 04:01 01/04/24 04:01 01/04/24 04:01 01/04/24 04:01 01/04/24 04:01
01/04/24 04:03
01/04/24 04:03
01/01/24 01/03/24 01/03/24
09:29 06:13 08:18
WBC
RBC
Hgb
Hct
MCH
RDW
Plt Count
MPV
Sodium
BUN
Glucose
Calcium
POC Glucose 100 H 102 H
Crossmatch IS Only See Detail
01/03/24 01/04/24
10:21 04:03
WBC 11.9 H
RBC 2.91 L
Hgb 9.5 L
Hct 27.9 L
MCH 32.6 H
RDW 16.0 H
Plt Count 101 L
MPV 11.3 H
Sodium 129 L
BUN 33 H
Glucose 111 H
Calcium 8.3 L
POC Glucose 123 H
Crossmatch IS Only
[2024-01-04] MEDS: TYLENOL 1000 MG PO ×3 (06:24→20:00)
--- NOTE | 2024-01-04 07:46 | PTCARENOTE ---
Patient received from nightshift nurse. Patient is alert and oriented x4, pleasant. Patient c/o 6/10 sternal incision pain, administered scheduled pain medication as ordered. NSR with occasional PACs. HR 60s. Audible heart tones. A&V wires
maintained to pacer box with the settings: AAI. HR 30, mA 8, sensitivity 0.4. BP 111/81. Trace generalized edema. RIJ cordis maintained with KVO. PIV maintained. RA. Oxygen saturation 96%. Upon auscultation, lung sounds diminished at the bilateral
bases. MS CT has small serosanguineous drainage. Abdomen round, obese, irregular contour. +BS. Per patient, passing gas but no BM yet. Patient voided in BR earlier - [address] and pacer box. Christina UOP. Sternal incision is approximated with
surgical adhesive and open to air. CT dressing clean, dry, intact. Awaiting to round with Dr. Carmona for the POC.
[2024-01-04] MEDS: LOW STRENGTH ASPIRIN 81 MG PO (08:06)
[2024-01-04] MEDS: MIRALAX 17 GRAMS PO (08:06)
[2024-01-04] MEDS: PACERONE 200 MG PO ×3 (08:06→20:00)
[2024-01-04] MEDS: PROTONIX 40 MG PO (08:06)
[2024-01-04] MEDS: LOPRESSOR 12.5 MG PO ×2 (08:07→19:59)
[2024-01-04] MEDS: VITAMIN C 500 MG PO ×2 (08:07→20:00)
[2024-01-04] MEDS: NEURONTIN 100 MG PO ×3 (08:07→20:00)
[2024-01-04] MEDS: LIPITOR 40 MG PO (08:07)
[2024-01-04] MEDS: MS CONTIN (EXTENDED RELEASE) 300 MG PO ×2 (08:07→20:00)
[2024-01-04] MEDS: SENOKOT-S 1 TABLET PO ×2 (08:07→20:00)
--- NOTE | 2024-01-04 08:41 | PN.CDI ---
CDI
- -
CDI:
Physician Documentation Request
Admit Date: 01/02/24 04:[address] Surgery,
Patient admitted for mitral valve insufficiency.
Laboratory Tests
12/19/23 01/03/24 01/04/24
13:22 03:59 04:03
Sodium 133 L 134 L 129 L
Based on the above, could you clarify in the progress notes, the appropriate diagnosis, if significant, that supports the above abnormalities and additional evaluation, monitoring and/or treatment rendered:
Hyponatremia
Abnormal lab valve insufficiency
Other
Use of terms such as suspected, likely, concern for, or probable (associated with a specific diagnosis that is being evaluated, monitored, or treated as if it exists) are acceptable and can be coded in the inpatient setting, when documented at the
time of discharge.
Thank you,
Azalea Sears RN, BSN
CDI Specialist
Available via [place] text
Please use your independent medical judgment in providing your response.
--- NOTE | 2024-01-04 08:48 | W.PN.CD ---
Today's Communication / Plan
-
trend tele
resume eliquis when safe post op
Impression / Plan
-
BACKGROUND: 68F with moderate-severe mitral regurgitation, chronic HFpEF, persistent atrial fibrillation (on Eliquis), TIA, hypertension, non-obstructive CAD, B cell lymphoma (prior IVIG), & renal artery stenosis s/p right stent presents for MV
repair with MAZE
Chief Specialist [place]: Dr. Bermudez
Severe mitral regurgitation S/P mitral valve repair [28 mm ring annuloplasty] by Dr. Carmona 01/02/2024
-EKG with junctional rhythm post op; now back in sinus
-Post EF 60% (unchanged) without RWMA, mean gradient 3mmHg
Persistent atrial fibrillation S/P Biatrial maze [combination of RF ablation and cryo] & DEYSI Clip 40mm
-Sinus vivienne
-She did not tolerate amiodarone as outpatient; would not d/c on amiodarone
-Oral Anticoagulation: Apixaban 5mg BID, resumption timing per CTS
-[id number]: score 6 (Heart failure, prior Stroke/TIA, Vascular disease, age 65-74, female gender)
HFpEF, chronic
-[facility] 11/2023: LVEDP = 14 mmHg, PCWP = 15 mmHg at 76.2 kg
-cont lasix
CAD, non obstructive by [facility] 11/2023, on single agent (Eliquis)
PFO, small
Hypertriglyceridemia, on Vascepa
Prior TIA
B cell lymphoma, on IVIG Q4 weeks (managed at [facility], Dr. Koenig)
RA, on MTX (held pre op)
Subjective:
Sitting in chair. Feels weak overall.
Physical Exam
Vital Signs/Labs
Vital Signs
Temp Pulse Resp BP Pulse Ox
97.7 F 64 16 111/81 96
01/04/24 07:42 01/04/24 08:07 01/04/24 07:42 01/04/24 08:07 01/04/24 07:42
01/03/24 01/04/24 01/05/24
06:59 06:59 06:59
Actual Weight 79.8 kg 80.2 kg
01/04/24 04:03
01/04/24 04:03
PT 18.4 Sec (11.4-14.6) H 01/02/24 11:32
INR 1.55 01/02/24 11:32
APTT 28.3 Sec (23.4-35.0) 01/02/24 11:32
Magnesium 2.2 mg/dl (1.6-2.3) 01/04/24 04:03
Physical Exam
Constitutional: No acute distress
EENT: Moist mucous membranes
Cardiovascular: Rhythm & rate is regular, Pedal edema is absent, JVD pressure is normal and Systolic murmur absent
Respiratory: Respiratory effort normal and Lungs clear to auscul.
GI: Soft and Distention absent
Neuro/Psych: AO x 3
Data Reviewed
-
Date of Service: January 04, 2024
EKG: Tracing Personally Visualized and interpreted (Tele: SR 60s, brief SVT)
Labs: Labs Reviewed by me
[2024-01-04] MEDS: BACTROBAN 2% OINTMENT 1 APPLIC NASAL ×2 (09:31→19:58)
[2024-01-04] MEDS: LASIX 40 MG IV ×2 (09:31→18:13)
[2024-01-04] MEDS: ZOFRAN 4 MG IV (10:30)
--- NOTE | 2024-01-04 10:32 | PTCARENOTE ---
Patient became dizzy and nauseous when ambulating in hallway with CR. Patient was able to walk back with some assistance to the recliner. BP stable throughout - 93/55 and 102/78, despite dizziness. PRN Zofran administered. Patient laying down in
recliner, trying to sleep.
--- NOTE | 2024-01-04 11:20 | PTCARENOTE ---
Vital signs stable. NSR with occasional PACs. HR 60s. BP 106/69. RA. Oxygen saturation 97%. MS CTx2 maintained to -20cm wall suction with small serosanguineous drainage. CT MATERIAL DISTRIBUTOR pulled epicardial A&V wires. New dressing applied. Patient c/o 02/19
sternal incision pain, administered PRN Tramadol as ordered. Patient claims she still feels slightly dizzy and nauseous. She will take a quick then will discontinue MS CT x2 later.
[2024-01-04] MEDS: NSS 500 IV (11:39)
[2024-01-04] MEDS: FERRLECIT 110 MG IV (13:22)
--- NOTE | 2024-01-04 13:30 | PTCARENOTE ---
MS CTx2 discontinued by RN per order and per protocol. Patient tolerated. New dressing applied. Patient states she needs some rest prior to getting OOB into the chair.
--- NOTE | 2024-01-04 16:10 | CM ---
CM following for DC planning needs.
Pt. POD# 2.
Reviewed DC plan. Anticipate DC to home w/ CT Transitional Care RN.
Will cont. to follow.
--- NOTE | 2024-01-04 19:00 | W.PN.UPDATE ---
Update Note
Progress Note Update
2 atrial and 1 bipolar pacing wire removed without difficulty. Chest drains removed. Received Lasix 40mg IV x 2.
--- NOTE | 2024-01-04 20:00 | PTCARENOTE ---
recieved PT AAOx4 w/o pain, nsr vss, RA 98%, GI & wnl. all surgical sights CDI see worklist for assessment
[2024-01-05] VITALS (10 sets, daily range): BP systolic 90–134; BP diastolic 56–79; PULSE 66; O2SAT 97–98; BMI 30.1
--- NOTE | 2024-01-05 | PTCARENOTE ---
no change from previous assessment
[2024-01-05 04:31] LABS: Hematocrit 24.8 % (37.0-47.0); Hemoglobin 8.5 g/dL (12.0-16.0); Mean Corp Hgb Conc. 34.3 g/dL (33.0-37.0); Mean Corpuscular Volume 93.2 fL (81.0-99.0); Mean Platelet Volume 11.1 fL (7.4-10.4); Platelet Count 80 10^3/uL (130-400); Red Blood Cell Count 2.66 10^6/uL (4.20-5.40); Red Cell Dist. Width 15.9 % (11.5-14.5); White Blood Cell Count 9.5 10^3/uL (4.8-10.8)
--- NOTE | 2024-01-05 04:41 | PTCARENOTE ---
no change from previous assessment
[2024-01-05 05:07] LABS: Blood Urea Nitrogen 29 mg/dl (7-17); Calcium 7.7 mg/dl (8.4-10.2); Carbon Dioxide 31 mmol/L (22-30); Chloride 98 mmol/L (98-107); Estimated Creatinine Clearance 68 ml/min; Glucose 107 mg/dl (70-99); Potassium 3.4 mmol/L (3.5-5.1); Sodium 129 mmol/L (135-145); eGFR > 60.00
[2024-01-05] MEDS: TYLENOL 1000 MG PO ×3 (05:24→19:43)
--- NOTE | 2024-01-05 06:02 | W.PN.CT ---
Today's Communication / Plan
-
POD #3
-no significant issues overnight
-Tele phase
-CTs removed 01/03
-junctional rhythm postop, then nsr overnight -> sinus vivienne 50-60s 01/03 -> now resolved NSR 70s
-h/h 8.5/24.9 today
-RA
-Xarelto resumed 01/04 for persistent a-fib
-continue low-dose BB, Amio - monitor for worsening/symptomatic bradycardia
-encourage IS, OOB
-PT/OT, OOB
-dispo planning
Assessment / Plan
-
- Severe MV insufficiency- s/p Mitral valve repair [28 mm ring annuloplasty]; ASD/PFO Closure; Biatrial maze [combination of RF ablation and cryo]; LAAE with a 40 mm clip on 01/02/[address] Carmona, pod #3
- Intraop EFREN: LVEF preop was 60% with no significant regional wma. She presented to the operating room in atrial fibrillation. Following surgery, EF remained the same at 60% with no new wma. She was in sinus bradycardia rhythm following the
surgery.
- Persistent atrial fibrillation with history of TIA/stroke 10/10/23- on Eliquis preop
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
- B-cell leukemia w/port, status post chemotherapy
- Thrombocytopenia status post IVIG infusions
- Rheumatoid arthritis
- Trigeminal neuralgia
- Acid reflux
- Osteopenia
- Multiple bowel resection/colectomies
- DARYL
- L renal artery stent
- Acute postop blood loss anemia- no transfusion
- Acute postop thrombocytopenia
- Acute postop atelectasis
- Acute postop hypovolemia with subsequent hypervolemia
Discussed patient care with: Care Team
Subjective
Procedure
s/p Mitral valve repair [28 mm ring annuloplasty]; ASD/PFO Closure; Biatrial maze [combination of RF ablation and cryo]; LAAE with a 40 mm clip on 01/02/[address] Carmona
-
Date of Service: January 05, 2024
Objective Data
-
Lab Results
01/04/24 04:03
01/04/24 04:03
PT 18.4 Sec (11.4-14.6) H 01/02/24 11:32
INR 1.55 01/02/24 11:32
APTT 28.3 Sec (23.4-35.0) 01/02/24 11:32
Vital Signs
Vital Signs
Temp Pulse Resp BP Pulse Ox
98.2 F 69 18 102/70 93
01/04/24 15:41 01/04/24 18:00 01/04/24 15:41 01/04/24 16:34 01/04/24 15:41
CT Intake/Output/Weight
01/04/24 01/04/24 01/05/24
06:59 18:59 06:59
Intake Total 70 / 768.0 1660 / 1660
Output Total 105 / 1925 1450 / 1450
Balance -35 / -1157.0 210 / 210
SaO2: 93
Physical Exam
-
General: Awake, Oriented and AOx3
Cardiovascular: Regular rate & rhythm
Respiratory: Clear and Equal
Sternum: Stable
Incision: Clean, Dry and Intact
Extremities: No Edema
Data Reviewed
-
Lab Results: Results Reviewed
Medications: Active Meds Reviewed
Chest X-Ray: Image Reviewed
Vital Signs / Labs
-
Vital Signs and Labs:
Temp Pulse Resp BP Pulse Ox
98.7 F 63 16 118/71 93
01/04/24 21:02 01/04/24 22:00 01/04/24 21:02 01/04/24 20:00 01/04/24 19:47
01/05/24 04:21
01/05/24 04:21
01/05/24
04:21
RBC 2.66 L
Hgb 8.5 L
Hct 24.8 L
MCH 32.0 H
RDW 15.9 H
Plt Count 80 L D
MPV 11.1 H
Sodium 129 L
Potassium 3.4 L D
Carbon Dioxide 31 H
BUN 29 H
Glucose 107 H
Calcium 7.7 L
--- NOTE | 2024-01-05 07:30 | PTCARENOTE ---
Assumed care of patient from shift foreman RN. AAO x 3 Sitting up in the chair. Denies pain at present. SR on monitor. Room air 96 %, denies cough or SOB using IS independently. achieving volumes of 1000. Abdomen with positive bowel sounds t/o
denies nausea. Passing flatus. Chest tube dressing saturated with old drainage, dressing changed. Pulse palpable. No edema appreciated. Plan for day discussed.
[2024-01-05] MEDS: LASIX 40 MG IV (08:20)
[2024-01-05] MEDS: NEURONTIN 100 MG PO ×2 (08:20→19:43)
[2024-01-05] MEDS: BACTROBAN 2% OINTMENT 1 APPLIC NASAL ×2 (08:20→19:44)
[2024-01-05] MEDS: LIPITOR 40 MG PO (08:21)
[2024-01-05] MEDS: PACERONE 200 MG PO (08:21)
[2024-01-05] MEDS: LOPRESSOR 12.5 MG PO ×2 (08:21→19:43)
[2024-01-05] MEDS: LOW STRENGTH ASPIRIN 81 MG PO (08:21)
[2024-01-05] MEDS: MIRALAX 17 GRAMS PO (08:21)
[2024-01-05] MEDS: VITAMIN C 500 MG PO ×2 (08:21→19:43)
[2024-01-05] MEDS: SENOKOT-S 1 TABLET PO ×2 (08:21→19:43)
[2024-01-05] MEDS: MS CONTIN (EXTENDED RELEASE) 300 MG PO ×2 (08:21→19:43)
[2024-01-05] MEDS: PROTONIX 40 MG PO (08:21)
[2024-01-05] MEDS: KCL 20 MEQ PO (08:21)
[2024-01-05] MEDS: NSS IV (08:22)
--- NOTE | 2024-01-05 10:17 | W.PN.CD ---
Today's Communication / Plan
-
resume eliquis when safe post op, and can stop ASA at that time
Impression / Plan
-
BACKGROUND: 68F with moderate-severe mitral regurgitation, chronic HFpEF, persistent atrial fibrillation (on Eliquis), TIA, hypertension, non-obstructive CAD, B cell lymphoma (prior IVIG), & renal artery stenosis s/p right stent presents for MV
repair with MAZE
Jet Operator: Dr. Bermudez
Severe mitral regurgitation S/P mitral valve repair [28 mm ring annuloplasty] by Dr. Carmona 01/02/2024
-EKG with junctional rhythm post op; now back in sinus
-Post EF 60% (unchanged) without RWMA, mean gradient 3mmHg
Persistent atrial fibrillation S/P Biatrial maze [combination of RF ablation and cryo] & DEYSI Clip 40mm
-Sinus rhythm on tele
-She did not tolerate amiodarone as outpatient; monitor for side effects, and limit to one month post op course if tolerated
-Oral Anticoagulation: Apixaban 5mg BID to be resumed when safe post op
-[id number]: score 6 (Heart failure, prior Stroke/TIA, Vascular disease, age 65-74, female gender)
HFpEF, chronic
-[facility] 11/2023: LVEDP = 14 mmHg, PCWP = 15 mmHg at 76.2 kg
-cont lasix
CAD, non obstructive by [facility] 11/2023, on single agent (Eliquis)
PFO, small
Hypertriglyceridemia, on Vascepa
Prior TIA
B cell lymphoma, on IVIG Q4 weeks (managed at [facility], Dr. Koenig)
RA, on MTX (held pre op)
Subjective:
Sitting in chair. Feels a little better eacg day.
Physical Exam
Vital Signs/Labs
Vital Signs
Temp Pulse Resp BP Pulse Ox
97.7 F 68 16 92/59 96
01/05/24 08:00 01/05/24 09:00 01/05/24 08:00 01/05/24 07:50 01/05/24 09:12
01/04/24 01/05/24 01/06/24
06:59 06:59 06:59
Actual Weight 80.2 kg 79.6 kg
01/05/24 04:21
01/05/24 04:21
PT 18.4 Sec (11.4-14.6) H 01/02/24 11:32
INR 1.55 01/02/24 11:32
APTT 28.3 Sec (23.4-35.0) 01/02/24 11:32
Magnesium 2.0 mg/dl (1.6-2.3) 01/05/24 04:21
Physical Exam
Constitutional: No acute distress and Comfortable
EENT: Moist mucous membranes
Cardiovascular: Rhythm & rate is regular, Pedal edema is absent, Systolic murmur absent and JVD present
Respiratory: Respiratory effort normal, Lungs clear to auscul. and Wheeze Absent
GI: Soft, Distention absent and Flat
Neuro/Psych: AO x 3
Data Reviewed
-
Date of Service: January 05, 2024
EKG: Other (Tele: SR 60s, brief SVT)
Labs: Labs Reviewed by me
[2024-01-05] MEDS: ZOFRAN 4 MG IV ×2 (10:36→17:51)
--- NOTE | 2024-01-05 11:04 | PTCARENOTE ---
c/o nausea after ambulating with cardiac rehab. zofran administered, resting in bed will monitor.
[2024-01-05] MEDS: ULTRAM 50 MG PO ×2 (11:48→22:51)
--- NOTE | 2024-01-05 13:00 | PTCARENOTE ---
VSS, pt complaining of continued intermittent dizziness at times. BP unchanged from prior. Resting in bed. Will continue to monitor
--- NOTE | 2024-01-05 15:02 | CM ---
CM following for DC planning needs.
Anticipated DC plan remains for home w/ CT TRansistional [facility] RN.
CM cont. to follow.
[2024-01-05] MEDS: NEURONTIN PO (16:09)
[2024-01-06] VITALS (11 sets, daily range): BP systolic 93–121; BP diastolic 59–73; PULSE 69; O2SAT 93–94; BMI 30.1
--- NOTE | 2024-01-06 00:11 | PTCARENOTE ---
Pt physical assessment preformed,pt turns with ease,supporting her chest.VS stable,SR care tech,afebrile.Pts sternal pain is controlled,by Ultram at this time.Close observation ongoing throughout the night.
[2024-01-06] MEDS: ZOFRAN 4 MG IV (02:31)
--- NOTE | 2024-01-06 03:44 | W.PN.CT ---
Today's Communication / Plan
-
-pod #4
-no issues overnight, ambulates to the bathroom
-Amio dcd d/t nausea and dizziness
-monitor BP for hypotension
-current meds (ASA, Lipitor, Lopressor 12.5 bid, Protonix, MS contin)
-encourage IS, OOB, ambulate
-possible d/c soon
Assessment / Plan
-
- Severe MV insufficiency- s/p Mitral valve repair [28 mm ring annuloplasty]; ASD/PFO Closure; Biatrial maze [combination of RF ablation and cryo]; LAAE with a 40 mm clip on 01/02/[address] Carmona, pod #4
- Intraop EFREN: LVEF preop was 60% with no significant regional wma. She presented to the operating room in atrial fibrillation. Following surgery, EF remained the same at 60% with no new wma. She was in sinus bradycardia rhythm following the
surgery.
- Persistent atrial fibrillation with history of TIA/stroke 10/10/23- on Eliquis preop
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
- B-cell leukemia w/port, status post chemotherapy
- Thrombocytopenia status post IVIG infusions
- Rheumatoid arthritis
- Trigeminal neuralgia
- Acid reflux
- Osteopenia
- Multiple bowel resection/colectomies
- DARYL
- L renal artery stent
- Acute postop blood loss anemia- no transfusion
- Acute postop thrombocytopenia
- Acute postop atelectasis
- Acute postop hypovolemia with subsequent hypervolemia
Discussed patient care with: Cardiology, Nursing and Care Team
Subjective
Procedure
s/p Mitral valve repair [28 mm ring annuloplasty]; ASD/PFO Closure; Biatrial maze [combination of RF ablation and cryo]; LAAE with a 40 mm clip on 01/02/[address] Carmona
-
Date of Service: January 06, 2024
Objective Data
-
PT 18.4 Sec (11.4-14.6) H 01/02/24 11:32
INR 1.55 01/02/24 11:32
APTT 28.3 Sec (23.4-35.0) 01/02/24 11:32
Vital Signs
Vital Signs
Temp Pulse Resp BP Pulse Ox
97.7 F 60 18 94/60 94
01/05/24 23:25 01/05/24 23:02 01/05/24 20:03 01/05/24 23:02 01/06/24 00:04
CT Intake/Output/Weight
01/05/24 01/05/24 01/06/24
06:59 18:59 06:59
Intake Total 660 / 660
Output Total 500 / 1950 1000 / 1300 300 / 1300
Balance -500 / -290 -340 / -640 -300 / -640
SaO2: 94
Physical Exam
-
General: Awake and AOx3
Cardiovascular: Regular rate & rhythm, No Murmurs and No Rub
Respiratory: Clear and Decreased Breath Sounds
Sternum: Stable
Incision: Clean, Dry and Intact
Extremities: Other (trace edema b/l)
Data Reviewed
-
Lab Results: Results Reviewed
Medications: Active Meds Reviewed
Chest X-Ray: Report Reviewed and Image Reviewed
ECG: Report Reviewed and Image Reviewed
[2024-01-06] MEDS: TYLENOL 1000 MG PO ×3 (05:37→21:42)
--- NOTE | 2024-01-06 05:38 | VATNOTE ---
CALLED TO ACCESS R SUBQ PORT. PRT ACCESSED BUT NO BR. PT UNABLE TO RECALL IF THERE IS NORMALLY A BR FROM HER PRT. PCN DENIED OPTION FOR CATHFLO PROTOCOL PT SCHEDULED FOR D/C TODAY. PRT DEACCESSED AND LABS OBTAINED PERIPHERALLY ORDERED. PA
AWARE OF INTERVENTION AND OUTCOME.
[2024-01-06 05:40] LABS: Hematocrit 26.6 % (37.0-47.0); Hemoglobin 9.2 g/dL (12.0-16.0); Mean Corp Hgb Conc. 34.6 g/dL (33.0-37.0); Mean Corpuscular Hgb 32.5 pg (27.0-31.0); Mean Platelet Volume 11.2 fL (7.4-10.4); Platelet Count 78 10^3/uL (130-400); Red Blood Cell Count 2.83 10^6/uL (4.20-5.40); Red Cell Dist. Width 15.9 % (11.5-14.5); White Blood Cell Count 7.6 10^3/uL (4.8-10.8)
--- NOTE | 2024-01-06 06:24 | PTCARENOTE ---
Pt oob to BR with 1 person assist,pt weak but steady.Pt voided 200 mls jackie urine,pt tolerated activity well.
[2024-01-06 06:26] LABS: Blood Urea Nitrogen 25 mg/dl (7-17); Calcium 8.3 mg/dl (8.4-10.2); Carbon Dioxide 27 mmol/L (22-30); Chloride 97 mmol/L (98-107); Estimated Creatinine Clearance 77 ml/min; Glucose 108 mg/dl (70-99); Magnesium 2.2 mg/dl (1.6-2.3); Potassium 4.5 mmol/L (3.5-5.1); Sodium 129 mmol/L (135-145); eGFR > 60.00
[2024-01-06] MEDS: LOW STRENGTH ASPIRIN 81 MG PO (08:12)
[2024-01-06] MEDS: ELIQUIS 5 MG PO ×2 (08:12→20:40)
[2024-01-06] MEDS: NEURONTIN 100 MG PO ×3 (08:12→21:43)
[2024-01-06] MEDS: LOPRESSOR 12.5 MG PO ×2 (08:12→20:41)
[2024-01-06] MEDS: SENOKOT-S 1 TABLET PO (08:12)
[2024-01-06] MEDS: PROTONIX 40 MG PO (08:12)
[2024-01-06] MEDS: LIPITOR 40 MG PO (08:12)
[2024-01-06] MEDS: BACTROBAN 2% OINTMENT 1 APPLIC NASAL (08:13)
[2024-01-06] MEDS: MS CONTIN (EXTENDED RELEASE) 300 MG PO ×2 (08:13→21:41)
[2024-01-06] MEDS: VITAMIN C 500 MG PO ×2 (08:13→20:41)
[2024-01-06] MEDS: MIRALAX PO (08:13)
[2024-01-06] MEDS: NSS IV (08:13)
--- NOTE | 2024-01-06 08:21 | W.PN.CD ---
Today's Communication / Plan
-
oob
ambulate
hopeful for d/c in am
Impression / Plan
-
BACKGROUND: 68F with moderate-severe mitral regurgitation, chronic HFpEF, persistent atrial fibrillation (on Eliquis), TIA, hypertension, non-obstructive CAD, B cell lymphoma (prior IVIG), & renal artery stenosis s/p right stent presents for MV
repair with MAZE
Certified Master Safecracker: Dr. Bermudez
Severe mitral regurgitation S/P mitral valve repair [28 mm ring annuloplasty] by Dr. Carmona 01/02/2024
-EKG with junctional rhythm post op; now back in sinus
-Post EF 60% (unchanged) without RWMA, mean gradient 3mmHg
Persistent atrial fibrillation S/P Biatrial maze [combination of RF ablation and cryo] & DEYSI Clip 40mm
-Sinus rhythm on tele
-She did not tolerate amiodarone as outpatient; monitor for side effects, and limit to one month post op course if tolerated
-Oral Anticoagulation: Apixaban 5mg BID resumed
-[id number]: score 6 (Heart failure, prior Stroke/TIA, Vascular disease, age 65-74, female gender)
HFpEF, chronic
-[facility] 11/2023: LVEDP = 14 mmHg, PCWP = 15 mmHg at 76.2 kg
CAD, non obstructive by [facility] 11/2023, on single agent (Eliquis)
PFO, small
Hypertriglyceridemia, on Vascepa
Prior TIA
B cell lymphoma, on IVIG Q4 weeks (managed at [facility], Dr. Koenig)
RA, on MTX (held pre op)
Subjective:
Sitting in chair. Feels a little better each day.
Physical Exam
Vital Signs/Labs
Vital Signs
Temp Pulse Resp BP Pulse Ox
98.1 F 70 16 107/68 97
01/06/24 08:00 01/06/24 08:00 01/06/24 08:00 01/06/24 04:00 01/06/24 08:00
01/05/24 01/06/24 01/07/24
06:59 06:59 06:59
Actual Weight 79.6 kg 79.4 kg
01/06/24 05:32
01/06/24 05:32
PT 18.4 Sec (11.4-14.6) H 01/02/24 11:32
INR 1.55 01/02/24 11:32
APTT 28.3 Sec (23.4-35.0) 01/02/24 11:32
Magnesium 2.2 mg/dl (1.6-2.3) 01/06/24 05:32
Physical Exam
Constitutional: No acute distress
Cardiovascular: Rhythm & rate is regular and JVD pressure is normal
Respiratory: Respiratory effort normal and Lungs clear to auscul.
Neuro/Psych: AO x 3
Data Reviewed
-
Date of Service: January 06, 2024
--- NOTE | 2024-01-06 08:33 | PTCARENOTE ---
Assumed care of patient from mold shifter RN. AAO x3, states shes 'tired'. VSS, SR on monitor. Room air 97%. Occasional harsh non productive cough noted. IS to 1000. Abdomen soft with active bowel sounds, passing flatus, tolerating PO w/o
issue. No nausea at present. Chest tube dressing c,d,i. Sternal incision well approximated with surgical glue intact. Pulses palpable. no edema appreciated. Plan for day discussed.
--- NOTE | 2024-01-06 08:36 | PTCARENOTE ---
81 mg ASA administered after checking with CT [facility].
[2024-01-06] MEDS: ULTRAM 50 MG PO ×2 (12:15→23:52)
--- NOTE | 2024-01-06 13:34 | CM ---
Chart reviewed. Patient was OOB walking in the room. Patient is independent of ADLS, lives in a apartment, 2nd floor, [address], 0 DME. Patient said her son is available to help when she goes home. Plan is for the patient to return home with CT
Transitional RN. CM to follow
--- NOTE | 2024-01-06 19:49 | PTCARENOTE ---
Pt transferred form CVICU. Pt encouraged to walk in halls, she is very deconditioned with many stops to rest in her 80 foot walk. Pt using IS to 1000mls. Pt c/o nausea after dinner. Telemetry shows sinus rhythm.
[2024-01-06] MEDS: SENOKOT-S PO (20:41)
--- NOTE | 2024-01-07 02:23 | PTCARENOTE ---
Took Ultram at 2350 for c/o of incisional pain with relief. Was oob in chair for most of the evening. Sleeping at intervals. SR in the 60's on the monitor.
[2024-01-07 04:02] VITALS: BP 112/71
[2024-01-07] MEDS: TYLENOL 1000 MG PO ×2 (06:04→14:11)
--- NOTE | 2024-01-07 06:22 | W.PN.CT ---
Today's Communication / Plan
-
-No major issues overnight. Hemodynamically and neurlogically intact
-Intolerant of Amio (dcd d/t nausea and dizziness)
-Cont. current meds (ASA, Lipitor, Lopressor 12.5 bid, Protonix, MS contin)
-OOB into chair/Ambulate
-Encourage use of IS
-Home today
Assessment / Plan
-
- Severe MV insufficiency- s/p Mitral valve repair [28 mm ring annuloplasty]; ASD/PFO Closure; Biatrial maze [combination of RF ablation and cryo]; LAAE with a 40 mm clip on 01/02/[address] Carmona, pod #5
- Intraop EFREN: LVEF preop was 60% with no significant regional wma. She presented to the operating room in atrial fibrillation. Following surgery, EF remained the same at 60% with no new wma. She was in sinus bradycardia rhythm following the
surgery.
- Persistent atrial fibrillation with history of TIA/stroke 10/10/23- on Eliquis preop
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
- B-cell leukemia w/port, status post chemotherapy
- Thrombocytopenia status post IVIG infusions
- Rheumatoid arthritis
- Trigeminal neuralgia
- Acid reflux
- Osteopenia
- Multiple bowel resection/colectomies
- DARYL
- L renal artery stent
- Acute postop blood loss anemia- no transfusion
- Acute postop thrombocytopenia
- Acute postop atelectasis
- Acute postop hypovolemia with subsequent hypervolemia
Discussed patient care with: Cardiology, Nursing, Respiratory Therapy, Pharmacy and Care Team
Subjective
Procedure
s/p Mitral valve repair [28 mm ring annuloplasty]; ASD/PFO Closure; Biatrial maze [combination of RF ablation and cryo]; LAAE with a 40 mm clip on 01/02/[address] Carmona
-
Date of Service: January 07, 2024
Pt c/o mild incisional pain, otherwise feels well
Objective Data
-
Lab Results
01/07/24 06:00
01/07/24 06:00
PT 18.4 Sec (11.4-14.6) H 01/02/24 11:32
INR 1.55 01/02/24 11:32
APTT 28.3 Sec (23.4-35.0) 01/02/24 11:32
Vital Signs
Vital Signs
Temp Pulse Resp BP Pulse Ox
97.9 F 63 18 112/71 97
01/07/24 04:43 01/07/24 04:02 01/07/24 04:43 01/07/24 04:02 01/07/24 04:43
CT Intake/Output/Weight
01/06/24 01/06/24 01/07/24
06:59 18:59 06:59
Intake Total 480 / 1140 240 / 240
Output Total 500 / 1500
Balance -20 / -360 240 / 240
SaO2: 97 (RA)
Physical Exam
-
General: Awake, Oriented and AOx3
Cardiovascular: Regular rate & rhythm, No Murmurs and No Gallop
Respiratory: Decreased Breath Sounds
Sternum: Stable
Incision: Clean, Dry, Intact and Dressing Intact
Extremities: No Edema
Data Reviewed
-
Lab Results: Results Reviewed
Medications: Active Meds Reviewed
Chest X-Ray: Report Reviewed and Image Reviewed
ECG: Report Reviewed and Image Reviewed
[2024-01-07 07:11] VITALS: BP 104/76
[2024-01-07 07:15] LABS: Glucose - Point of Care 103 mg/dl (70-99)
[2024-01-07 07:58] VITALS: BMI 30.5
--- NOTE | 2024-01-07 08:11 | W.PN.CD ---
Today's Communication / Plan
-
Discharge home today
Impression / Plan
-
BACKGROUND: 68F with moderate-severe mitral regurgitation, chronic HFpEF, persistent atrial fibrillation (on Eliquis), TIA, hypertension, non-obstructive CAD, B cell lymphoma (prior IVIG), & renal artery stenosis s/p right stent presents for MV
repair with MAZE
Material Expediter: Dr. Bermudez
Severe mitral regurgitation S/P mitral valve repair [28 mm ring annuloplasty] by Dr. Carmona 01/02/2024
-EKG with junctional rhythm post op; now back in sinus
-Post EF 60% (unchanged) without RWMA, mean gradient 3mmHg
Persistent atrial fibrillation S/P Biatrial maze [combination of RF ablation and cryo] & DEYSI Clip 40mm
-Sinus rhythm on tele
-She did not tolerate amiodarone as outpatient; monitor for side effects, and limit to one month post op course if tolerated
-Oral Anticoagulation: Apixaban 5mg BID resumed
-[id number]: score 6 (Heart failure, prior Stroke/TIA, Vascular disease, age 65-74, female gender)
HFpEF, chronic
-[facility] 11/2023: LVEDP = 14 mmHg, PCWP = 15 mmHg at 76.2 kg
CAD, non obstructive by [facility] 11/2023, on single agent (Eliquis)
PFO, small
Hypertriglyceridemia, on Vascepa
Prior TIA
B cell lymphoma, on IVIG Q4 weeks (managed at [facility], Dr. Koenig)
RA, on MTX (held pre op)
Subjective:
Sitting in chair. Feels a little better each day.
Physical Exam
Vital Signs/Labs
Vital Signs
Temp Pulse Resp BP Pulse Ox
98.0 F 65 18 104/76 95
01/07/24 07:57 01/07/24 08:00 01/07/24 07:57 01/07/24 07:11 01/07/24 07:57
01/06/24 01/07/24 01/08/24
06:59 06:59 06:59
Actual Weight 79.4 kg 80.6 kg
01/07/24 06:00
01/07/24 06:00
PT 18.4 Sec (11.4-14.6) H 01/02/24 11:32
INR 1.55 01/02/24 11:32
APTT 28.3 Sec (23.4-35.0) 01/02/24 11:32
Magnesium 2.2 mg/dl (1.6-2.3) 01/06/24 05:32
Physical Exam
Constitutional: No acute distress and Comfortable
EENT: Anicteric and Moist mucous membranes
Cardiovascular: Rhythm & rate is regular and Pedal edema is absent
Respiratory: Respiratory effort normal and Wheeze Absent
GI: Soft and Non tender
Neuro/Psych: Alert, AO x 3 and Motor deficits absent
Data Reviewed
-
Date of Service: January 07, 2024
Medical Decision Making: Reviewed Test Results, Independent Historian Assessment and Test Interpretation
EKG: Tracing Personally Visualized and interpreted
Echo: Report Reviewed by me
Labs: Labs Reviewed by me
Old Records: Reviewed
[2024-01-07] MEDS: LOW STRENGTH ASPIRIN 81 MG PO (08:12)
[2024-01-07] MEDS: LOPRESSOR 12.5 MG PO (08:12)
[2024-01-07] MEDS: NEURONTIN 100 MG PO (08:12)
[2024-01-07] MEDS: ELIQUIS 5 MG PO (08:13)
[2024-01-07] MEDS: LIPITOR 40 MG PO (08:13)
[2024-01-07] MEDS: MS CONTIN (EXTENDED RELEASE) 300 MG PO (08:13)
[2024-01-07] MEDS: VITAMIN C 500 MG PO (08:13)
[2024-01-07] MEDS: PROTONIX 40 MG PO (08:13)
[2024-01-07] MEDS: MIRALAX PO (08:14)
[2024-01-07] MEDS: SENOKOT-S PO (08:14)
[2024-01-07] MEDS: ULTRAM 50 MG PO (09:13)
--- NOTE | 2024-01-07 09:29 | PTCARENOTE ---
Assumed care of pt from night RN. Pt received awake and alert, Ox3. VSS, CM shows SB 60's, POX 95% on RA. Sternal and CT site open to air, CDI. Ultram 50 mg given as per MAR for 7/10 h/a. Pt for possible D/C today.
[2024-01-07] MEDS: NSS IV (10:55)
[2024-01-07 11:35] VITALS: BP 104/66
--- NOTE | 2024-01-07 11:41 | W.[place]-PDMP ---
[place]-PD[place]
-
Checked the [place]- Prescription Drug Monitoring Program website. Was notified by [facility] pharmacy that the patient also takes Morphine 30 mg immediate release Q8H as needed (perscribed from [facility]) on top of Morphine 300 mg extended release Q12
hrs. Therefore, prescription for Tramadol 50 mg Q6H as needed discontinued and not prescribed.
--- NOTE | 2024-01-07 11:42 | W.DCSUMMARY ---
Discharge Summary
Discharge Data
Date of Admission: 01/02/24
Date of Discharge: 01/07/24
Total time spent discharging patient (in min): 35
-
Pending Results: No
Hospital Course
Primary care physician:
Dr. Maliha Hall MD.
Outpatient drawer in jacquard loom:
Dr. Alpesh Bermudez MD.
Inpatient consultants:
[facility]
Procedures:
1. Mitral valve repair [28 mm ring annuloplasty]
2. Biatrial maze [combination of Radiofrequency ablation and cryo]
3. Left atrial appendage exclusion with a 40 mm clip
4. Atrial septal defect/patent foramen ovale closure
Primary Diagnosis:
1. Atrial functional mitral valve severe insufficiency with persistent atrial fibrillation
Secondary Diagnoses:
1. Persistent atrial fibrillation
2. 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
3. Rheumatoid arthritis
4. History of TIA 10/10/2023
5. History of multiple bowel resections/colectomies
6. History of total abdominal hysterectomy
7. History of left renal artery stent
HPI:
Patient is a 68-year-old female with a history of B cell leukemia with thrombocytopenia status postchemotherapy and intravenous immunoglobulin infusion. She was found to have slurred speech and diagnosed with a transient ischemic attack and was
found to be in atrial fibrillation. She was also found to have subsequent mitral valve insufficiency. From a symptomatology standpoint patient describes feeling short of breath and extreme fatigue. She was seen as an outpatient in consultation by
Dr. Carmona and deemed an appropriate candidate meeting class D symptomatology. Patient was scheduled for elective surgery at [facility] on the date described above.
Hospital course:
Patient presented to the operating room on the date described above for the procedure described above. Patient tolerated procedure well. Postoperatively the patient was started on dobutamine for inotropic support. She was A-paced due to
junctional rhythm. She received desmopressin acetate and was successfully extubated on postoperative day 0 at 1600. The patient's postoperative course was overall standard and uneventful. Dobutamine was weaned off on postoperative day 1 and the
patient was de-lined and transferred to telemetry. She was gently diuresed with Lasix 40 mg IV. Chest tubes and pacing wires were kept in place and Boggs was removed. On postoperative day #2 pacing wires and chest tubes were removed at the
bedside without issues. She continued aggressive diuresis with Lasix 40 mg IV twice daily. On postoperative day 3 her amiodarone was DC'd due to nausea and dizziness. Repeat transthoracic echocardiogram showed no surgical concerns. She was given
the option to go home on postoperative day 4 however the patient declined and felt that she would benefit from an additional day in the hospital. On postoperative day #5 the patient was again diuresed with Lasix 40 mg p.o. due to no intravenous
access after multiple attempts and difficulty. Patient's case was discussed with attending physician and she was medically cleared to be discharged to home.
Note the patient will be discharged with Lasix 40 mg p.o. x 7 days and then she should resume her previous home dose of Lasix 20 mg daily as needed for swelling. Patient should have a basic metabolic panel checked on Tuesday, January 11, 2024 to
evaluate electrolytes and renal function with home Lasix therapy.
Note Tramadol not prescribed. Was notified by [facility] pharmacy that the patient also takes Morphine 30 mg immediate release Q8H as needed (prescribed from [facility]) on top of Morphine 300 mg extended release Q12 hrs. Therefore, prescription for
Tramadol 50 mg Q6H as needed discontinued and not prescribed.
Home medication changes:
Please pay attention to the following medications instructions:
Take Acetaminophen 650 mg Q4H PRN for mild pain, fever
Take Aspirin 81 mg daily s/p MV repair
Take Lasix 40 mg daily x 7 days, then resume previous home dose of Lasix 20 mg daily PRN-post operative volume overload
Take Potassium Chloride 20 meq daily x 7 days, then stop-electrolyte replacement
Take Metoprolol tartrate 12.5 mg BID-HTN, s/p MV repair
Please hold the following medications:
Hold Lasix 20 mg daily PRN for swelling while taking Lasix 40 mg daily x7 days.
Resume home dose of Lasix 20 mg daily PRN for swelling once 40 mg x7 days is completed.
Please stop taking the following medications:
Stop taking Metoprolol Succinate 50 mg daily and replace with Metoprolol tartrate 12.5 mg BID-HTN, s/p MV repair
Discharge Plan
-
Patient Disposition: Home (Routine Discharge)
Discharge Diagnosis/Procedures: mr/mitral valve repair/pfo closure/maze/ELAA with clip
Condition: Fair
Diet: Low Fat and Low Sodium
Activity: No strenuous activity
Driving Restrictions: Not until seen by your Dr
Bathing Restrictions: OK to Shower
Blood Work: BMP to be drawn on Tuesday01/11/24 to assess electrolytes and renal function with home Lasix
Other Services: Cardiac Rehab
Specialty Instructions: Weigh Daily- Call MD for wt gain/loss 3 lbs overnight/5 lbs in 1 week
Activity Restrictions/Additional Instructions:
ACTIVITY:
-No strenuous activity: no heavy lifting, pushing, pulling anything over 15 pounds for one month
-continue to use stairs as tolerated
DRIVING RESTRICTIONS:
-No driving for one month or until approved by your surgeon
WOUND CARE:
-Shower daily. Use soap & water.
-No lotions, creams or powders on incision area.
DIET:
-continue a low fat/low cholesterol diet.
-IF you are diabetic, continue carb controlled diet.
CARDIAC REHAB:
-Please make appointment to start in 5-6 weeks with your local hospital program. (See Cardiac Rehabilitation Discharge Booklet).
SPECIALTY INSTRUCTIONS:
-Weigh yourself daily. Call your physician for any weight gain/loss of 3 lbs overnight or 5 lbs in one week.
-REPORT any clicking noise or uneven appearance of your sternum to your surgeon immediately.
-If you smoke, you are instructed to quit. The [place] smoking hotline phone number is [phone]
Referrals:
CT Transitional Care Nurse [Outside] - in one to two days
(
The Cardiothoracic Transitional Care Nurse will call you to set up a visit in 1-2 days.)
[facility]. Cardiac Rehab [Outside] - 02/09/24 10:00 am
(Cardiac Rehab Orientation appointment and� First Exercise appointment is on Tuesday02/09/24 10:00 am.
The Cardiac Rehab gym is located on the first floor of the [facility].)
Natalia Dumont NP [Specified Professional Personl] - 02/08/24 2:00 pm
Maliha Hall MD [Family Provider] - in four to six weeks (Please make an appointment in four to six weeks. )
Mendoza Carmona MD [Active] - 02/01/24 1:15 pm
Additional Discharge Medication Instructions: Please pay attention to the following medications instructions:
Take Acetaminophen 650 mg Q4H PRN for mild pain, fever
Take Aspirin 81 mg daily s/p MV repair
Take Lasix 40 mg daily x 7 days, then resume previous home dose of Lasix 20 mg daily PRN-post operative volume overload
Take Potassium Chloride 20 meq daily x 7 days, then stop-electrolyte replacement
Take Metoprolol tartrate 12.5 mg BID-HTN, s/p MV repair
Please hold the following medications:
Hold Lasix 20 mg daily PRN for swelling while taking Lasix 40 mg daily x7 days.
Resume home dose of Lasix 20 mg daily PRN for swelling once 40 mg x7 days is completed.
Please stop taking the following medications:
Stop taking Metoprolol Succinate 50 mg daily and replace with Metoprolol tartrate 12.5 mg BID-HTN, s/p MV repair
Prescriptions:
New
acetaminophen 325 mg Tablet
650 mg PO Q4HPRN PRN (Reason: mild pain,headache,temp >101F ) Qty: 0 0RF
aspirin [Children's Aspirin] 81 mg Tablet,Chewable
81 mg PO DAILY Qty: 0 0RF
metoprolol tartrate 25 mg Tablet
12.5 mg PO Q12 Qty: 30 1RF
furosemide [Lasix] 40 mg tablet
40 mg PO DAILY Qty: 7 0RF
Rx Instructions:
Take 40 mg daily x 7 days then resume taking your previous dose of 20 mg daily PRN
potassium chloride 20 mEq tablet extended release
20 meq PO DAILY Qty: 7 0RF
Rx Instructions:
Take potassium chloride 20 meq daily with Lasix for 7 days then stop
Continued
ascorbic acid (vitamin C) [Vitamin C] 1,000 mg Tablet
1,000 mg PO HS
famotidine 40 mg Tablet
40 mg PO QPM
methotrexate sodium 2.5 mg Tablet
20 mg PO SA@0800
prochlorperazine [Compro] 25 mg Suppository
25 mg UT BID PRN (Reason: nausea)
docusate sodium [Stool Softener] 100 mg Capsule
100 mg PO DAILY
folic acid 1 mg Tablet
1 mg PO SUMOTUWETHFR@0800
icosapent ethyl [Vascepa] 1 gram Capsule
2 g PO BID
Movantik 25 mg Tablet
25 mg PO DAILY
atorvastatin 40 mg tablet
40 mg PO DAILY Qty: 90 3RF
ferrous sulfate [Iron (ferrous sulfate)] 325 mg (65 mg iron) Tablet
325 mg PO DAILY
vitamin B complex Tablet
1 tab PO DAILY
vitamin E (dl, acetate) 180 mg (400 unit) Capsule
180 mg PO HS
vitamin A
1,500 mcg PO DAILY
morphine 100 mg Tablet Extended Release
300 mg PO Q12H
Eliquis 5 mg tablet
5 mg PO BID
omeprazole 40 mg Capsule,Delayed Release(Dr/Ec)
40 mg PO DAILY Qty: 0 0RF
Held
furosemide [Lasix] 20 mg Tablet
20 mg PO DAILY PRN (Reason: swelling )
Hold Instructions: Resume on 01/15/24. Take Lasix 40 mg daily x 7 days. Then resume your previous home Lasix 20 mg daily PRN for swelling as you were previously taking
Discontinued
metoprolol succinate 50 mg Tablet Extended Release 24 Hr
50 mg PO BID
Discharge Orders:
Discharge Patient (As Directed); Ordered 01/07/24
Ordered By: Joan Ferguson
Discharge Date and Time
Print Language: WOLOF
[2024-01-07] MEDS: KCL 20 MEQ PO (11:48)
[2024-01-07] MEDS: LASIX 40 MG PO (11:48)
--- NOTE | 2024-01-07 14:39 | PTCARENOTE ---
Pt concerned that she had not been walked up and down stairs. [facility] made aware, this nurse accompanied pt up and down 8 stairs, pt slightly SOB, POX 94% on recovery.
--- NOTE | 2024-01-07 15:31 | PTCARENOTE ---
All D/C info reviewed with pt, all questions answered. Pt d/c'd home with son.
== END 2024-01-07 15:15 | disposition home or self-care (01) | DRG 220 ==
LOC: IVU 04:57
PROVIDERS: Anesthesiology; Nurse Practitioner; Physician Assistant Medical; ADMITTING PHYSICIAN Thoracic Surgery (Cardiothoracic Vascular Surgery); FAMILY PHYSICIAN Family Medicine; OTHER PHYSICIAN Internal Medicine Critical Care Medicine
PROC: 02L70CK Occlusion of Left Atrial Appendage with Extraluminal Device, Open Approach (ICD-10-PCS; 2024-01-02)
PROC: 5A1221Z Performance of Cardiac Output, Continuous (ICD-10-PCS; 2024-01-02)
PROC: 02UG0JZ Supplement Mitral Valve with Synthetic Substitute, Open Approach (ICD-10-PCS; 2024-01-02)
PROC: 02Q50ZZ Repair Atrial Septum, Open Approach (ICD-10-PCS; 2024-01-02)
PROC: 02580ZZ Destruction of Conduction Mechanism, Open Approach (ICD-10-PCS; 2024-01-02)
PROC: B24BZZ4 Ultrasonography of Heart with Aorta, Transesophageal (ICD-10-PCS; 2024-01-02)
DX: I34.0 Nonrheumatic mitral (valve) insufficiency (principal); D62 Acute posthemorrhagic anemia; I48.19 Other persistent atrial fibrillation; Q21.12 Patent foramen ovale; I50.32 Chronic diastolic (congestive) heart failure; J98.11 Atelectasis; E87.1 Hypo-osmolality and hyponatremia; R00.1 Bradycardia, unspecified; M85.80 Other specified disorders of bone density and structure, unspecified site; M06.9 Rheumatoid arthritis, unspecified; K21.9 Gastro-esophageal reflux disease without esophagitis; D69.6 Thrombocytopenia, unspecified; G62.9 Polyneuropathy, unspecified; G89.29 Other chronic pain; K59.03 Drug induced constipation; T40.605A Adverse effect of unspecified narcotics, initial encounter; I11.0 Hypertensive heart disease with heart failure; E78.1 Pure hyperglyceridemia; E86.1 Hypovolemia; E87.70 Fluid overload, unspecified; Z79.01 Long term (current) use of anticoagulants; Z79.899 Other long term (current) drug therapy; Z79.891 Long term (current) use of opiate analgesic; Z82.49 Family history of ischemic heart disease and other diseases of the circulatory system; Z85.6 Personal history of leukemia; Z86.73 Personal history of transient ischemic attack (TIA), and cerebral infarction without residual deficits; Z92.21 Personal history of antineoplastic chemotherapy
CPT/HCPCS: 93308; 33259; 36415; 71045; 71046; 80048; 80053; 81003; 81015; 82248; 82330; 82565; 82805; 82810; 82947; 82962; 83036; 83735; 84132; 84302; 84520; 85014; 85018; 85025; 85027; 85049; 85610; 85730; 86850; 86900; 86901; 86920; 87070; 93005; 93312; 93320; 93321; 93325; 93880; 94002; J2597; J2916; P9045

== ENCOUNTER → 2024-07-28 11:08 | Outpatient (REF) | payer MEDICARE, SELFPAY | LOC: RCS 11:08 | PROVIDERS: ATTENDING PHYSICIAN Thoracic Surgery (Cardiothoracic Vascular Surgery); FAMILY PHYSICIAN Family Medicine | DX: Z98.890 Other specified postprocedural states (principal) | CPT/HCPCS: 93306 ==